=== PATIENT | male | born 1955 | race Caucasian/White ===

== ENCOUNTER → 2021-02-06 15:13 | Outpatient (BNVA) | payer MEDICARE, MEDICAID, SELFPAY | PROVIDERS: PCP Internal Medicine; Visit Provider Anesthesiology | DX: G89.4 Chronic pain syndrome (principal); S22.32XA Fracture of one rib, left side, initial encounter for closed fracture; G20 Parkinson's disease | CPT/HCPCS: Q3014 ==

== ENCOUNTER 2022-07-31 14:15 | Emergency (ER) | payer MEDICARE, MEDICAID, SELFPAY ==
--- NOTE | ~2022-07-31 | US_ITS ---
EXAMINATION: US VENOUS ULTRASOUND WITH DOPPLER LOWER EXTREMITY, BILATERAL CLINICAL INFORMATION: Bilateral leg swelling. Assess for acute DVT. COMPARISON: None TECHNIQUE: Ultrasound of the deep veins is performed from the hip to the calf with compression sonography and color and pulse Doppler assessment. Spectral analysis with color-flow imaging is performed. FINDINGS: RIGHT: There is normal venous compression and respiratory variation and augmented flow. The visualized common femoral vein, superficial femoral vein, profunda femoral vein, popliteal vein, and the trifurcation region shows no evidence of deep venous thrombosis. There is limited visualization of the peroneal vein. No popliteal fossa cyst. LEFT: There is normal venous compression and respiratory variation and augmented flow. The visualized common femoral vein, superficial femoral vein, profunda femoral vein, popliteal vein, and the trifurcation region shows no evidence of deep venous thrombosis. There is limited visualization of the peroneal vein. No popliteal fossa cyst. US/US venous duplex LE IMPRESSION: -No DVT demonstrated in the bilateral lower extremity. -If the patient's symptoms persist, followup ultrasound in 5-7 days may be considered to exclude proximal propagation from a non-visualized calf vein.
--- NOTE | ~2022-07-31 | XR_ITS ---
EXAMINATION: XR CHEST CLINICAL INFORMATION: Cough, shortness of breath COMPARISON: Chest in left ribs 09/21/2018 TECHNIQUE: 2 views of the chest were obtained. FINDINGS: Heart size normal. Vascularity normal. No hyperinflation. No airspace consolidation or groundglass opacity or effusion. Bilateral pacemaker generators in visualized wires show no change. XR/XR chest 2V IMPRESSION: No acute intrathoracic disease.
[2022-07-31 14:20] VITALS: BP 118/64; PULSE 82; RESP 19; TEMP 36.6; O2SAT 96; BMI 33.5
--- NOTE | 2022-07-31 14:20 | ED_ITS ---
HPI - SOB/Dyspnea General Chief Complaint: Upper Respiratory Symptoms <ASIF Hylton - Last Filed: 07/31/22 14:36> Stated Complaint: SOB, coughing <ASIF Hylton - Last Filed: 07/31/22 14:36> Time Seen by Provider: 07/31/22 16:40 <ASIF Hylton - Last Filed: 07/31/22 14:36> Source: patient <Igor Strickland MD - Last Filed: 07/31/22 17:05> Limitations: no limitations <Igor Strickland MD - Last Filed: 07/31/22 17:05> History of Present Illness HPI Narrative: This is a 67-year-old male with history of Parkinson's disease who developed a mild cough last night and today had a worse cough, fever, shortness of breath. Patient has had mild nasal congestion. He has had nausea but no vomiting. The nausea was worse earlier today. Patient has intermittent constipation for which he takes MiraLax, has not had a bowel movement today. He does feel little short of breath. He denies any lower extremity swelling. <Igor Strickland MD - Last Filed: 07/31/22 17:05> Related Data Home Medications: Home Medications Medication Instructions Recorded Confirmed carbidopa 25 mg-levodopa 100 mg tab PO 02/06/21 tablet dextromethorphan 20 mg-quinidine 1 cap PO BID 02/06/21 10 mg capsule (Nuedexta) diazepam 5 mg tablet 5 mg PO TID PRN 02/06/21 hydrocortisone 2.5 % topical cream appl topical 02/06/21 omeprazole 40 mg capsule,delayed 40 mg PO DAILY 02/06/21 release tamsulosin 0.4 mg capsule 0.4 mg PO DAILY 02/06/21 temazepam 15 mg capsule 15 mg PO BEDTIME PRN 02/06/21 Previous Rx's Medication Instructions Recorded nirmatrelvir 300 mg (150 mg See Rx Instructions PO .COMPLEX 07/31/22 x2)-ritonavir 100 mg tablet,dose #30 ea pack(EUA) (Paxlovid) ondansetron 4 mg disintegrating 4 mg PO Q6H PRN nausea and 07/31/22 tablet vomiting #10 tabs <ASIF Hylton - Last Filed: 07/31/22 14:36> Allergies/Adverse Reactions: Allergies Allergy/AdvReac Type Severity Reaction Status Date / Time insect venom Allergy unknown Verified 02/06/21 15:35 <ASIF Hylton - Last Filed: 07/31/22 14:36> Review of Systems Review of Systems: As per HPI <Igor Strickland MD - Last Filed: 07/31/22 17:05> [facility] Past Medical History Medical History: Medical History (Updated 07/31/22 @ 16:51 by Igor Strickland MD) Abnormal iliac reflex Atrial flutter Benign prostatic hyperplasia Chronic constipation Chronic pain syndrome Depression Diverticulitis Dysphagia Esophageal reflux Hemorrhoids, internal Hiatal hernia Hyperlipidemia Hypertension Insomnia Left rib fracture Obstructive sleep apnea Parkinson disease Parkinson disease, symptomatic Vitamin B12 deficiency <ASFI Hylton - Last Filed: 07/31/22 14:36> Social History Social History: Social History Advance Directives: No <ASIF Hylton - Last Filed: 07/31/22 14:36> Physical Exam Vital Signs: Vital Signs: Last Vital Signs Temp 98 F 07/31/22 14:20 Pulse 82 07/31/22 14:20 Resp 07/31/22 14:20 BP 118/64 07/31/22 14:20 Pulse Ox 96 07/31/22 14:20 O2 Del Method 07/31/22 14:20 BMI result Body Mass Index 33.5 <ASIF Hylton - Last Filed: 07/31/22 14:36> Vital Signs: Last Vital Signs Temp 98 F 07/31/22 14:20 Pulse 82 07/31/22 14:20 Resp 07/31/22 14:20 BP 118/64 07/31/22 14:20 Pulse Ox 96 07/31/22 14:20 O2 Del Method 07/31/22 14:20 BMI result Body Mass Index 33.5 <Igor Strickland MD - Last Filed: 07/31/22 17:05> Const: Other: PERRLA Conj [place] Mucous membranes moist Throat clear Neck supple Lungs CTA Heart RRR no murmurs rubs or gallops Abd soft, non tender, non distended Extremities no pitting edema Neuro alert and oriented x 3, non focal <Igor Strickland MD - Last Filed: 07/31/22 17:05> Course Course Course Narrative: RME-14:20PM - 67yoM with past medical history of atrial fibrillation not on any anticoagulation, Parkinson's disease who is presenting to the ED with at bedside with URI complaints since last night which include generalized fatigue/malaise, chills, nasal congestion rhinorrhea, sore throat, cough with shortness of breath, dyspnea on exertion, orthopnea, leg swelling. Plan: Labs, EKG, CXR ordered at this time. Patient will be sent to be seen in the ER for further evaluation treatment. <ASIF Hylton - Last Filed: 07/31/22 14:36> Medical Decision Making Medical Decision Making [facility] Narrative: patient with URI symptoms, myalgias, mild shortness of breath which began primarily today. Patient does have COVID. Chest x-ray negative. Pulse oximetry is normal. Lungs clear on exam. Laboratory workup otherwise unremarkable. Patient will be started on Paxlovid. Patient is mildly obese, no history of prior lung disease or diabetes <Igor Strickland MD - Last Filed: 07/31/22 17:05> Differential Diagnosis Differential Diagnoses: The differential diagnosis associated with the presentation includes <Igor Strickland MD - Last Filed: 07/31/22 17:05> Admission/Observation Consideration of admission/observation: Escalation of care including admission/observation considered <Igor Strickland MD - Last Filed: 07/31/22 17:05> Lab Data [facility] Lab Attestation statement: I reviewed the patient's lab results. <Igor Strickland MD - Last Filed: 07/31/22 17:05> Result Diagrams: 07/31/22 14:32 07/31/22 14:32 <ASIF Hylton - Last Filed: 07/31/22 14:36> Labs: Lab Results 07/31/22 07/31/22 07/31/22 Range/Units 14:29 14:32 14:32 WBC 4.6 L (4.8-10.8) X10*3/uL RBC 4.40 L (4.60-5.80) X10*6/uL Hgb 13.1 L (14.0-18.0) g/dl Hct 38.1 L (42.0-52.0) % MCV 86.6 (80.0-98.0) fL MCH 29.8 (27.0-33.0) pg MCHC 34.4 (31.0-36.0) g/dl RDW 12.8 (11.0-16.0) % Plt Count 174 (160-400) X10*3/uL MPV 8.6 L (9.4-12.4) fL Immature Gran % (Auto) 0.4 (0.0-0.4) % Neut % (Auto) 85.6 H (45-73) % Lymph % (Auto) 5.4 L (20-40) % Mclean % (Auto) 6.0 (2-11) % Eos % (Auto) 2.2 (0-4) % Baso % (Auto) 0.4 (0-2) % Lymph # (Auto) 0.3 L (1.2-4.9) X10*3/uL Mclean # (Auto) 0.3 (0.1-1.2) X10*3/uL Eos # (Auto) 0.1 (0.0-0.4) X10*3/uL Baso # (Auto) 0.0 (0.0-0.2) X10*3/uL Abs Immat Gran (auto) 0.02 (0.00-0.03) X10*3/uL Absolute Neuts (auto) 4.0 (2.0-8.3) x10*3/uL Absolute Nucleated RBC 0.000 (0.0-0.012) X10*3/uL Nucleated RBC % (auto) 0.0 (0.0-0.2) /100WBC PT 11.9 (10.0-13.1) SEC INR 1.0 (0.9-1.1) Sodium (135-145) mmol/L Potassium (3.3-5.1) mmol/L Chloride (96-108) mmol/L Carbon Dioxide (22-29) mmol/L Anion Gap (12-20) BUN (9-16) mg/dL Creatinine (0.5-1.4) mg/dL Estim Creat Clear Calc Estimated GFR Random Glucose (60-115) mg/dL Calcium (8.4-10.2) mg/dL Magnesium (1.6-2.6) mg/dL Total Bilirubin (0.0-1.0) mg/dL AST (5-37) U/L ALT (0-40) U/L Alkaline Phosphatase (39-117) U/L Troponin I High Sens (<3.5-35.0) ng/L B-Natriuretic Peptide (<100) pg/mL Total Protein (6.5-8.0) g/dL Albumin (3.5-5.0) g/dL Influenza Type A (PCR) NEGATIVE (Negative) Influenza Type B (PCR) NEGATIVE (Negative) RSV RNA Qual (PCR) NEGATIVE (Negative) SARS-CoV-2 RNA (RT-PCR) POSITIVE A (Negative) 07/31/22 07/31/22 07/31/22 Range/Units 14:32 14:32 14:32 WBC (4.8-10.8) X10*3/uL RBC (4.60-5.80) X10*6/uL Hgb (14.0-18.0) g/dl Hct (42.0-52.0) % MCV (80.0-98.0) fL MCH (27.0-33.0) pg MCHC (31.0-36.0) g/dl RDW (11.0-16.0) % Plt Count (160-400) X10*3/uL MPV (9.4-12.4) fL Immature Gran % (Auto) (0.0-0.4) % Neut % (Auto) (45-73) % Lymph % (Auto) (20-40) % Mclean % (Auto) (2-11) % Eos % (Auto) (0-4) % Baso % (Auto) (0-2) % Lymph # (Auto) (1.2-4.9) X10*3/uL Mclean # (Auto) (0.1-1.2) X10*3/uL Eos # (Auto) (0.0-0.4) X10*3/uL Baso # (Auto) (0.0-0.2) X10*3/uL Abs Immat Gran (auto) (0.00-0.03) X10*3/uL Absolute Neuts (auto) (2.0-8.3) x10*3/uL Absolute Nucleated RBC (0.0-0.012) X10*3/uL Nucleated RBC % (auto) (0.0-0.2) /100WBC PT (10.0-13.1) SEC INR (0.9-1.1) Sodium 136 (135-145) mmol/L Potassium 4.3 (3.3-5.1) mmol/L Chloride 103 (96-108) mmol/L Carbon Dioxide 26 (22-29) mmol/L Anion Gap 11 L (12-20) BUN 14 (9-16) mg/dL Creatinine 1.17 (0.5-1.4) mg/dL Estim Creat Clear Calc 74.7 Estimated GFR > 60 Random Glucose 89 (60-115) mg/dL Calcium 8.6 (8.4-10.2) mg/dL Magnesium 1.8 (1.6-2.6) mg/dL Total Bilirubin 0.7 (0.0-1.0) mg/dL AST 15 (5-37) U/L ALT 8 (0-40) U/L Alkaline Phosphatase 102 (39-117) U/L Troponin I High Sens < 3.5 (<3.5-35.0) ng/L B-Natriuretic Peptide 110 H (<100) pg/mL Total Protein 6.8 (6.5-8.0) g/dL Albumin 3.8 (3.5-5.0) g/dL Influenza Type A (PCR) (Negative) Influenza Type B (PCR) (Negative) RSV RNA Qual (PCR) (Negative) SARS-CoV-2 RNA (RT-PCR) (Negative) <ASIF Hylton - Last Filed: 07/31/22 14:36> Lab Results 07/31/22 07/31/22 07/31/22 Range/Units 14:29 14:32 14:32 WBC 4.6 L (4.8-10.8) X10*3/uL RBC 4.40 L (4.60-5.80) X10*6/uL Hgb 13.1 L (14.0-18.0) g/dl Hct 38.1 L (42.0-52.0) % MCV 86.6 (80.0-98.0) fL MCH 29.8 (27.0-33.0) pg MCHC 34.4 (31.0-36.0) g/dl RDW 12.8 (11.0-16.0) % Plt Count 174 (160-400) X10*3/uL MPV 8.6 L (9.4-12.4) fL Immature Gran % (Auto) 0.4 (0.0-0.4) % Neut % (Auto) 85.6 H (45-73) % Lymph % (Auto) 5.4 L (20-40) % Mclean % (Auto) 6.0 (2-11) % Eos % (Auto) 2.2 (0-4) % Baso % (Auto) 0.4 (0-2) % Lymph # (Auto) 0.3 L (1.2-4.9) X10*3/uL Mclean # (Auto) 0.3 (0.1-1.2) X10*3/uL Eos # (Auto) 0.1 (0.0-0.4) X10*3/uL Baso # (Auto) 0.0 (0.0-0.2) X10*3/uL Abs Immat Gran (auto) 0.02 (0.00-0.03) X10*3/uL Absolute Neuts (auto) 4.0 (2.0-8.3) x10*3/uL Absolute Nucleated RBC 0.000 (0.0-0.012) X10*3/uL Nucleated RBC % (auto) 0.0 (0.0-0.2) /100WBC PT 11.9 (10.0-13.1) SEC INR 1.0 (0.9-1.1) Sodium (135-145) mmol/L Potassium (3.3-5.1) mmol/L Chloride (96-108) mmol/L Carbon Dioxide (22-29) mmol/L Anion Gap (12-20) BUN (9-16) mg/dL Creatinine (0.5-1.4) mg/dL Estim Creat Clear Calc Estimated GFR Random Glucose (60-115) mg/dL Calcium (8.4-10.2) mg/dL Magnesium (1.6-2.6) mg/dL Total Bilirubin (0.0-1.0) mg/dL AST (5-37) U/L ALT (0-40) U/L Alkaline Phosphatase (39-117) U/L Troponin I High Sens (<3.5-35.0) ng/L B-Natriuretic Peptide (<100) pg/mL Total Protein (6.5-8.0) g/dL Albumin (3.5-5.0) g/dL Influenza Type A (PCR) NEGATIVE (Negative) Influenza Type B (PCR) NEGATIVE (Negative) RSV RNA Qual (PCR) NEGATIVE (Negative) SARS-CoV-2 RNA (RT-PCR) POSITIVE A (Negative) 07/31/22 07/31/22 07/31/22 Range/Units 14:32 14:32 14:32 WBC (4.8-10.8) X10*3/uL RBC (4.60-5.80) X10*6/uL Hgb (14.0-18.0) g/dl Hct (42.0-52.0) % MCV (80.0-98.0) fL MCH (27.0-33.0) pg MCHC (31.0-36.0) g/dl RDW (11.0-16.0) % Plt Count (160-400) X10*3/uL MPV (9.4-12.4) fL Immature Gran % (Auto) (0.0-0.4) % Neut % (Auto) (45-73) % Lymph % (Auto) (20-40) % Mclean % (Auto) (2-11) % Eos % (Auto) (0-4) % Baso % (Auto) (0-2) % Lymph # (Auto) (1.2-4.9) X10*3/uL Mclean # (Auto) (0.1-1.2) X10*3/uL Eos # (Auto) (0.0-0.4) X10*3/uL Baso # (Auto) (0.0-0.2) X10*3/uL Abs Immat Gran (auto) (0.00-0.03) X10*3/uL Absolute Neuts (auto) (2.0-8.3) x10*3/uL Absolute Nucleated RBC (0.0-0.012) X10*3/uL Nucleated RBC % (auto) (0.0-0.2) /100WBC PT (10.0-13.1) SEC INR (0.9-1.1) Sodium 136 (135-145) mmol/L Potassium 4.3 (3.3-5.1) mmol/L Chloride 103 (96-108) mmol/L Carbon Dioxide 26 (22-29) mmol/L Anion Gap 11 L (12-20) BUN 14 (9-16) mg/dL Creatinine 1.17 (0.5-1.4) mg/dL Estim Creat Clear Calc 74.7 Estimated GFR > 60 Random Glucose 89 (60-115) mg/dL Calcium 8.6 (8.4-10.2) mg/dL Magnesium 1.8 (1.6-2.6) mg/dL Total Bilirubin 0.7 (0.0-1.0) mg/dL AST 15 (5-37) U/L ALT 8 (0-40) U/L Alkaline Phosphatase 102 (39-117) U/L Troponin I High Sens < 3.5 (<3.5-35.0) ng/L B-Natriuretic Peptide 110 H (<100) pg/mL Total Protein 6.8 (6.5-8.0) g/dL Albumin 3.8 (3.5-5.0) g/dL Influenza Type A (PCR) (Negative) Influenza Type B (PCR) (Negative) RSV RNA Qual (PCR) (Negative) SARS-CoV-2 RNA (RT-PCR) (Negative) <Igor Strickland MD - Last Filed: 07/31/22 17:05> Radiology Impression Discussion of test interpretation with radiology: I have reviewed the radiologist's reading. <Igor Strickland MD - Last Filed: 07/31/22 17:05> Radiologist Impression: chest x-ray: No acute disease duplex ultrasound lower extremity: No DVT <Igor Strickland MD - Last Filed: 07/31/22 17:05> Prescription Management I considered prescription management with: Antiviral <Igor Strickland MD - Last Filed: 07/31/22 17:05> Chronic Conditions Patient?s care impacted by: Other ( Parkinson's disease) <Igor Strickland MD - Last Filed: 07/31/22 17:05> Discharge Plan Discharge Clinical Impression: COVID-19 <ASIF Hylton - Last Filed: 07/31/22 14:36> Patient Disposition: Home, Self-Care <ASIF Hylton - Last Filed: 07/31/22 14:36> Instructions: COVID-19 (Coronavirus Disease 2019) (ED) <ASIF Hylton - Last Filed: 07/31/22 14:36> Additional Instructions: Drink plenty of fluids. Use acetaminophen or ibuprofen for pain or fever. Use the Paxil pedis prescribed for COVID. Use MiraLax as per your usual routine as needed for constipation. Use ondansetron as prescribed as needed for nausea. Return for any new or worsened symptoms such as increased shortness of breath, dizziness, weakness. <ASIF Hylton - Last Filed: 07/31/22 14:36> Prescriptions: New Paxlovid (EUA) 300 mg (150 mg x 2)-100 mg tablets,dose pack See Rx Instructions .ROUTE .COMPLEX Qty: 30 0RF Rx Instructions: take TWO 150 mg tablets of nirmatrelvir with ONE 100 mg tablet of ritonavir twice daily for 5 days ondansetron 4 mg tablet,disintegrating 4 mg PO Q6H PRN (Reason: nausea and vomiting) Qty: 10 0RF <ASIF Hylton - Last Filed: 07/31/22 14:36>
--- NOTE | 2022-07-31 14:26 | MHC.EDTECH ---
pt refusal of EKG due to brain stimulator for Parkinson's causes too much artifact . ABDIFATAH ramirez and RN.
[2022-07-31 14:37] LABS: MANUAL DIFF FLAG NO
[2022-07-31 14:39] LABS: Basophils Percent Auto 0.4 % (0-2); Eosinophils Absolute Auto 0.1 X10*3/uL (0.0-0.4); Eosinophils Percent Auto 2.2 % (0-4); Hematocrit 38.1 % (42.0-52.0); Hemoglobin 13.1 g/dl (14.0-18.0); Imm Gran Abs Auto 0.02 X10*3/uL (0.00-0.03); Imm Gran Pct Auto 0.4 % (0.0-0.4); Lymphocytes Absolute Auto 0.3 X10*3/uL (1.2-4.9); Lymphocytes Percent Auto 5.4 % (20-40); Mean Corpuscular HGB Conc 34.4 g/dl (31.0-36.0); Mean Corpuscular Hemoglobin 29.8 pg (27.0-33.0); Mean Corpuscular Volume 86.6 fL (80.0-98.0); Mean Platelet Volume 8.6 fL (9.4-12.4); Monocytes Absolute Auto 0.3 X10*3/uL (0.1-1.2); Neutrophils Percent Auto 85.6 % (45-73); Platelet Count 174 X10*3/uL (160-400); Red Cell Distribution Width 12.8 % (11.0-16.0); White Blood Count 4.6 X10*3/uL (4.8-10.8)
[2022-07-31 14:47] LABS: Prothrombin Time 11.9 SEC (10.0-13.1)
[2022-07-31 14:53] LABS: Alanine Aminotransferase 8 U/L (0-40); Albumin Level 3.8 g/dL (3.5-5.0); Alkaline Phosphatase 102 U/L (39-117); Anion Gap 11 (12-20); Aspartate Amino Transferase 15 U/L (5-37); Bilirubin Total 0.7 mg/dL (0.0-1.0); Blood Urea Nitrogen 14 mg/dL (9-16); Calcium 8.6 mg/dL (8.4-10.2); Carbon Dioxide 26 mmol/L (22-29); Chloride 103 mmol/L (96-108); Creatinine Clr Calc Pharmacy 74.7; Estimated Glomerular Filt Rate > 60; Glucose Random 89 mg/dL (60-115); Magnesium 1.8 mg/dL (1.6-2.6); Potassium 4.3 mmol/L (3.3-5.1); Sodium 136 mmol/L (135-145); Total Protein 6.8 g/dL (6.5-8.0)
[2022-07-31 14:59] LABS: B Type Natriuretic Peptide 110 pg/mL (<100)
[2022-07-31 15:01] LABS: Troponin-I High Sensitivity < 3.5 ng/L (<3.5-35.0)
[2022-07-31 15:25] LABS: Influenza A PCR NEGATIVE (Negative); Influenza B PCR NEGATIVE (Negative); Resp Syncy Virus RNA Qual PCR NEGATIVE (Negative); SARS COV2 PCR INHOUSE POSITIVE (Negative)
== END 2022-07-31 17:28 | disposition home or self-care (01) ==
PROVIDERS: Physician Assistant Medical; Emergency Provider Emergency Medicine; PCP Internal Medicine
DX: U07.1 COVID-19 (principal); R06.02 Shortness of breath; R05.9 Cough, unspecified; R60.0 Localized edema; Z79.899 Other long term (current) drug therapy
CPT/HCPCS: 0241U; 36415; 71046; 80053; 83735; 83880; 84484; 85025; 85610; 93970; 99282; 99284

== ENCOUNTER 2022-10-19 09:54 | Emergency (ER) | payer MEDICARE, MEDICAID, SELFPAY ==
--- NOTE | ~2022-10-19 | CT_ITS ---
EXAMINATION: CT CERVICAL SPINE WITHOUT CONTRAST CLINICAL INFORMATION: History of fall with neck pain. COMPARISON: None available. TECHNIQUE: Noncontrast multidetector CT imaging examination of cervical spine. Axial images and multiplanar reformatted images are reviewed. This CT examination was performed using dose optimization techniques as appropriate, variously including the following: *Automated exposure control *Adjustment of mA and/or kV according to patient size (this includes techniques or standardized protocols for targeted exams where dose is matched to indication/reason for exam; i.e. extremities or head) *Use of iterative reconstruction technique DLP: 572.19 mGy-cm for the cervical spine CT (1293 mGy-cm total, if including head CT) FINDINGS: The skull base is intact. No evidence of calvarial fracture. Left mastoid effusion is present. There is mild dextroscoliosis of the degenerated cervical spine. The dens and atlantodental articulation are intact. No acute fractures within the anterior or posterior elements. No prevertebral edema or paraspinal hematoma. There is multilevel facet osteoarthritis and discovertebral degenerative change. The loss of disc height is worst (moderate in degree) at C3-C4 and there is associated 0.2 cm of retrolisthesis of C3 on C4. A posterior disc osteophyte complex is present at C3-C4 and there is narrowing of the central spinal canal to 0.9 cm AP diameter. Otherwise, no significant stenosis of the cervical spinal canal. There is severe left-sided neural foraminal stenosis at C3-C4. [id number] bilateral neural foraminal stenosis is present at C4-C5. The lung apices are partially included in the [id number]. No acute findings at the visualized apices. No pneumothorax. Thyroid gland is unremarkable. CT/CT cervical spine wo IV con IMPRESSION: * No acute fracture or traumatic subluxation of the degenerated cervical spine. * The degenerative changes in the cervical spine are worst at C3-C4. At C3-C4, the findings include moderate discovertebral degenerative change, uncovertebral joint hypertrophy, facet arthropathy, mild retrolisthesis of C3 on C4, spinal canal stenosis and severe left-sided neural foraminal stenosis.
--- NOTE | ~2022-10-19 | CT_ITS ---
CT head/brain wo IV con CLINICAL INFORMATION: Reason for Exam fall and head injury COMPARISON: No prior CT scan available for comparison. TECHNIQUE: Department standard protocol. This CT examination was performed using dose optimization techniques as appropriate, variously including the following: *Automated exposure control *Adjustment of mA and/or kV according to patient size (this includes techniques or standardized protocols for targeted exams where dose is matched to indication/reason for exam; i.e. extremities or head) *Use of iterative reconstruction technique DLP: 721 mGy-cm FINDINGS: CEREBRAL HEMISPHERES: There is no evidence of intra-axial or extra-axial mass, hemorrhage or acute infarct. BRAIN PARENCHYMA: Normal zheng-white matter differentiation. SUBDURAL SPACE: No bleed. BASAL GANGLIA AND PINEAL GLAND: Unremarkable VENTRICLES: There are 2 parallel 8 cm long metallic radiodense linear catheters or stent-2 subcutaneous stimulator embedded in the chest wall, these wires passing through the anterior parietal lobe, lateral ventricles and through the internal capsule, the tips are at the level of the brainstem. There are causing beam hardening artifacts. CEREBELLUM AND BRAINSTEM: No space-occupying mass, hemorrhage or acute infarct. CEREBELLOPONTINE ANGLES: No lesion found. ORBITS: No intraorbital mass. VESSELS: Unremarkable SKULL BASE: Unremarkable INCLUDED SINUSES AT SKULL BASE: Clear SKULL AND SKIN: No fracture or bone lesion found. CT/CT head/brain wo IV con IMPRESSION: * No CT evidence of intracranial space-occupying mass, bleed or infarct. * There are 2 parallel 8 cm long metallic radiodense linear catheters or stents, each is attached to stimulator wires embedded in the chest wall, these wires passing through the anterior parietal lobe, lateral ventricles and through the internal capsule, the tips are at the level of the brainstem. These metallic wires causing beam hardening artifacts.
--- NOTE | ~2022-10-19 | XR_ITS ---
EXAMINATION: XR HIP, LEFT CLINICAL INFORMATION: History of fall with hip pain. COMPARISON: None available. TECHNIQUE: Left hip, 2 views AP view of pelvis FINDINGS: Pelvic bones are intact. Alignment is normal at the hips, pubic symphysis and sacroiliac joints. No acute fractures are seen. The articular cartilage space of each hip is maintained. The two views of the left hip show the femoral head to be well-positioned within the intact acetabulum. There is swelling of subcutaneous tissue lateral to the hip. Multiple phleboliths are present within the pelvis. XR/XR hip LT w PEL1V IMPRESSION: * No acute osseous injury. No fracture or malalignment at the left hip. * There is soft tissue swelling of subcutaneous tissues lateral to the left hip. Correlate clinically for presence of any significant pain/bruising in this area.
[2022-10-19 10:18] VITALS: BP 94/62; PULSE 72; RESP 20; TEMP 36.6; O2SAT 96; BMI 33.0
[2022-10-19 10:41] VITALS: BP 129/65; PULSE 64; RESP 20; TEMP 36.5; O2SAT 98
[2022-10-19] MEDS: HYDROmorphone HCl 2 MG/ML VIAL IM (10:49)
--- NOTE | 2022-10-19 10:56 | ED.FALL ---
HPI - Fall General Chief Complaint: Fall Stated Complaint: Fall/L hip pain/Head inj Time Seen by Provider: 10/19/22 10:17 Source: patient Mode of arrival: ambulatory Limitations: no limitations History of Present Illness HPI Narrative: 67-year-old male history of Parkinson's disease came in for evaluation after had a mechanical fall last night. Patient was going down stairs his leg got caught in a shoe and he lost balance patient try to catch the rail but missed Ed fell about 10 steps of stairs landing on his left hip, patient also hit his head the neck. Complaining of head/neck/left hip pain. No LOC, no weakness, no numbness. Related Data Home Medications Medication Instructions Recorded Confirmed carbidopa 25 mg-levodopa 100 mg tab PO 02/06/21 tablet dextromethorphan 20 mg-quinidine 1 cap PO BID 02/06/21 10 mg capsule (Nuedexta) diazepam 5 mg tablet 5 mg PO TID PRN 02/06/21 hydrocortisone 2.5 % topical cream appl topical 02/06/21 omeprazole 40 mg capsule,delayed 40 mg PO DAILY 02/06/21 release tamsulosin 0.4 mg capsule 0.4 mg PO DAILY 02/06/21 temazepam 15 mg capsule 15 mg PO BEDTIME PRN 02/06/21 Previous Rx's Medication Instructions Recorded nirmatrelvir 300 mg (150 mg See Rx Instructions PO .COMPLEX 07/31/22 x2)-ritonavir 100 mg tablet,dose #30 ea pack(EUA) (Paxlovid) ondansetron 4 mg disintegrating 4 mg PO Q6H PRN nausea and 07/31/22 tablet vomiting #10 tabs Allergies Allergy/AdvReac Type Severity Reaction Status Date / Time insect venom Allergy unknown Verified 02/06/21 15:35 tramadol Allergy Unknown Verified 10/19/22 10:18 Review of Systems Review of Systems: All other systems are reviewed and are negative Constitutional: Reports as per HPI and Reports no additional constitutional complaints Eyes: Reports as per HPI and Reports no additional eye complaints Reports system reviewed and no additional complaints, except as documented Cardiovascular: Reports as per HPI and Reports no additional cardiovascular complaints Respiratory: Reports as per HPI and Reports no additional respiratory complaints Gastrointestinal: Reports as per HPI and Reports no additional gastrointestinal complaints Genitourinary: Reports no additional female genitourinary complaints Musculoskeletal: Reports no additional musculoskeletal complaints Skin/Breast: Reports system reviewed and no additional complaints, except as docu Psychiatric: Reports no additional psychiatric complaints Endocrine: Reports no additional endocrine complaints Hematologic/Lymphatic: Reports no additional hematologic/lymphatic complaints Allergic/Immunologic: Reports no additional allergic/immunologic complaints Reports system reviewed and no additional complaints, except as documented and Reports Abnormal speech present [facility] Past Medical History Medical History Abnormal iliac reflex Atrial flutter Benign prostatic hyperplasia Chronic constipation Chronic pain syndrome Depression Diverticulitis Dysphagia Esophageal reflux Hemorrhoids, internal Hiatal hernia Hyperlipidemia Hypertension Insomnia Left rib fracture Obstructive sleep apnea Parkinson disease Parkinson disease, symptomatic Vitamin B12 deficiency Social History Social History Alcohol intake: never Smoked in Last 30 Days: No Use of substances other than those prescribed or required for medical reasons: No Advance Directives: No Advance Directives Information Provided: Yes Physical Exam Vital Signs: Vital Signs: Last Vital Signs Temp 97.7 F 10/19/22 10:41 Pulse 65 10/19/22 11:36 Resp 16 10/19/22 11:36 BP 116/68 10/19/22 11:36 Pulse Ox 96 10/19/22 11:36 O2 Del Method Room Air 10/19/22 11:36 BMI result Body Mass Index 33.0 Vital signs have been reviewed as appeared to be correct. Blood pressure normal. Heart rate normal. Respiration rate normal. Temperature normal. Oxygen saturation normal. Appearance: Alert. Oriented X3. No acute distress. Head: Normal external exam. Normocephalic. Atraumatic. No Gipson signs noted. No raccoon eyes noted Eyes: PERRLA. EOMI. Conjunctiva and sclera normal. Eyelids normal. ENT: TM's Normal. Pharynx normal. Uvula midline. Moist mucous membranes. No trismus noted. No drooling noted. No muffled voice noted. Neck: Normal inspection. Neck supple. FROM. No adenopathy. Thyroid Normal. No meningeal signs. No neck mass noted. CVS: Normal heart rate and rhythm. Heart sound normal. No murmurs noted. Pulses normal throughout. Respiratory: No respiratory distress. Painless inspiration. Breath sounds normal. No wheezes/rales/rhonchi noted. Chest nontender. No accessory muscle usage noted or decreased air movement noted. Abdomen: Soft and nontender. Bowel sounds normal in all 4 quadrants. No distention noted. No organomegaly noted. No visible injury noted. Back: No CVA tenderness. Full range of motion noted. Skin: Skin warm and dry. Normal skin color. Normal skin turgor. No rashes/lesions/lacerations noted. Extremities: Able to ambulate, ecchymosis to the left buttock with localized tenderness but no deformity parent Neuro: Oriented X 3. Cranial nerve exam: II-XII are grossly intact No motor deficit. No sensory deficit. Reflexes normal. Course Course Course Narrative: 67-year-old male came in for evaluation of mechanical fall hurting his left have patient with history of Parkinson's disease. X-ray of the left hip showing no acute pathology or fracture, head/C-spine CT no acute injuries. Patient use oxycodone at home for chronic pain, instructed to rest, heating pad, use oxycodone at home for chronic pain. Medications Administered Discontinued Medications Generic Name Dose Route Start Last Admin Trade Name Freq PRN Reason Stop Dose Admin Hydromorphone HCl 2 mg 10/19/22 10:38 10/19/22 10:49 Hydromorphone Hcl 2 Mg/Ml Vial IM 10/19/22 10:39 2 mg ONCE ONE Administration Protocol Medical Decision Making Differential Diagnosis Differential Diagnoses: The differential diagnosis associated with the presentation includes (Mechanical fall, left hip fracture, pelvic fracture, intracranial bleed, C-spine injury.) Admission/Observation Consideration of admission/observation: Escalation of care including admission/observation considered Independent Interpretation I performed an independent interpretation of an: CT Scan (head and c-spine CT: No acute intracranial pathology, no cervical spine fracture or subluxation) Radiology Impression Discussion of test interpretation with radiology: I have reviewed the radiologist's reading. Chronic Conditions Patient?s care impacted by: Other (Parkinson's disease) Discharge Plan Discharge Clinical Impression: Contusion of hip, left Patient Disposition: Home, Self-Care Instructions: Hip Contusion (ED) Prescriptions: No Action Paxlovid (EUA) 300 mg (150 mg x 2)-100 mg tablets,dose pack See Rx Instructions .ROUTE .COMPLEX Qty: 30 0RF Rx Instructions: take TWO 150 mg tablets of nirmatrelvir with ONE 100 mg tablet of ritonavir twice daily for 5 days ondansetron 4 mg tablet,disintegrating 4 mg PO Q6H PRN (Reason: nausea and vomiting) Qty: 10 0RF Referrals: Ashley Ramirez MD [Primary Care Provider] -
--- NOTE | 2022-10-19 11:00 | PC.NURSE ---
pt Alert, oriented. presents to ED after fall down stairs last night. Reporting 10/10 left hip pain. medicated for pain per sep. Pt baseline uses a walker and has a slow gait.
[2022-10-19 11:36] VITALS: BP 116/68; PULSE 65; RESP 16; O2SAT 96
--- NOTE | 2022-10-19 11:39 | PC.NURSE ---
pt back from CT scan. pain in hip has lessened to 6/. call day within reach
== END 2022-10-19 14:02 | disposition home or self-care (01) ==
PROVIDERS: Emergency Provider Emergency Medicine; PCP Internal Medicine
DX: S70.02XA Contusion of left hip, initial encounter (principal); M25.552 Pain in left hip; R51.9 Headache, unspecified; M54.2 Cervicalgia; W10.9XXA Fall (on) (from) unspecified stairs and steps, initial encounter; Y93.9 Activity, unspecified; Y92.9 Unspecified place or not applicable; Y99.9 Unspecified external cause status; Z79.899 Other long term (current) drug therapy
CPT/HCPCS: 70450; 72125; 73502; 96372; 99284; J1170

== ENCOUNTER 2022-10-26 01:16 | Emergency (ER) | payer MEDICARE, MEDICAID, SELFPAY ==
--- NOTE | ~2022-10-26 | CT_ITS ---
EXAMINATION: CT CHEST WITH CONTRAST CT ABDOMEN AND PELVIS WITH CONTRAST CLINICAL INFORMATION: Additional Information: pt fell 1 week ago, hematoma then, included all of hematoma for this scan. : COMPARISON: None. TECHNIQUE: Multidetector volumetric imaging was performed through the chest, abdomen and pelvis following the administration of 85 mL of Omnipaque 350 intravenous contrast. Sagittal and coronal reformatted images were obtained on the technologist's workstation. Axial MIP volume rendering provided. This CT examination was performed using dose optimization techniques as appropriate, variously including the following: *Automated exposure control *Adjustment of mA and/or kV according to patient size (this includes techniques or standardized protocols for targeted exams where dose is matched to indication/reason for exam; i.e. extremities or head) *Use of iterative reconstruction technique DLP: 1264 mGy-cm. FINDINGS: CHEST: Lungs: The central airways are patent. No consolidation. Mild dependent atelectasis bilaterally. No pleural effusion or pneumothorax. There are no pulmonary parenchymal nodules. Mediastinum: The heart is of normal size. There is no pericardial effusion. Central vascular structures are unremarkable. No hilar or mediastinal lymphadenopathy. Coronary Artery Calcification: None visualized on this study. Chest Wall/Axilla: No lymphadenopathy. No chest wall mass. Bilateral chest wall generators. ABDOMEN/PELVIS: Liver, Gallbladder, Biliary Tree: The liver is normal in size, shape, and attenuation. No focal hepatic lesion or biliary ductal dilatation is present. The gallbladder is unremarkable with no evidence of radiopaque gallstones, gallbladder wall thickening, or pericholecystic inflammatory changes. Pancreas: Unremarkable. Spleen: Unremarkable. Adrenal Glands: Unremarkable. Kidneys and Ureters: The kidneys are normal in size, shape, and attenuation. No hydronephrosis, hydroureter or calculi seen. Mild symmetric perinephric stranding. Simple cyst at the lower pole of the right kidney. There is an exophytic left upper pole renal lesion which measures higher than simple fluid attenuation. This measures 2.5 cm. Bladder: Unremarkable. Gastrointestinal Tract: The stomach and small bowel appear unremarkable. No dilated loops of bowel or evidence of obstruction. No diverticulosis. No colonic wall thickening or adjacent inflammatory changes. No free air or free fluid. The appendix is unremarkable. Abdominal Wall: Fat-containing small bilateral inguinal hernias. There is a hematoma in the fat overlying the left hip laterally. This measures 11.6 x 4.2 x 9 cm . At this location, this is suspicious for a Guillory Akilah lesion. Lymphovascular Structures: Lymph nodes: Normal. Vascular: Unremarkable. Pelvic Viscera: The prostate and seminal vesicles are unremarkable. OSSEOUS STRUCTURES: No suspicious sclerotic or lytic bone lesions are identified. Mild degenerative changes of the spine. Intact sternum. No rib fracture identified. CT/CT abdomen pelvis w IV con IMPRESSION: 1. Prominent hematoma in the fat overlying the left hip laterally. This is suspicious for a Guillory Akilah lesion. 2. No additional acute traumatic finding of the chest, abdomen, or pelvis. 3. Exophytic left upper pole renal lesion measures higher than simple fluid attenuation. While this may represent a complicated cyst, a solid mass is not excluded. This can be further evaluated with nonemergent renal ultrasound.
[2022-10-26 01:47] VITALS: BP 111/60; PULSE 80; RESP 16; TEMP 37.1; O2SAT 98; BMI 33.0
--- NOTE | 2022-10-26 01:59 | PC.NURSE ---
Pt presents with c/o of expanding hematoma on left hip/butocks and upper thigh s/p fall down 10 stairs on Thursday 10/19. Was seen here for evaluation, no fractures found. Pt has excessively large hematoma and swelling noted to left hip area and upper thigh with pain on palpation. Pt also has swelling and some ecchymosis on left elbow. Small laceration with dried blood on bridge of nose, and small closed wound on top of head, no bleeding. No other complaints or concerns at this time.
--- NOTE | 2022-10-26 02:13 | PC.NURSE ---
Pt reports having increasing pain in left hip with prolonged sitting or lying on left side. Pt positioned on right side with padding to prevent pressure on left hip.
[2022-10-26] MEDS: Morphine Sulfate 4 MG/ML CARTRIDGE IVPUSH ×2 (02:35→04:51)
[2022-10-26 03:01] LABS: Basophils Percent Auto 0.7 % (0-2); Eosinophils Absolute Auto 0.2 X10*3/uL (0.0-0.4); Eosinophils Percent Auto 3.6 % (0-4); Hematocrit 30.6 % (42.0-52.0); Hemoglobin 10.5 g/dl (14.0-18.0); Imm Gran Abs Auto 0.04 X10*3/uL (0.00-0.03); Imm Gran Pct Auto 0.7 % (0.0-0.4); Lymphocytes Absolute Auto 1.4 X10*3/uL (1.2-4.9); Lymphocytes Percent Auto 25.7 % (20-40); MANUAL DIFF FLAG NO; Mean Corpuscular HGB Conc 34.3 g/dl (31.0-36.0); Mean Corpuscular Volume 87.4 fL (80.0-98.0); Mean Platelet Volume 8.7 fL (9.4-12.4); Monocytes Absolute Auto 0.5 X10*3/uL (0.1-1.2); Monocytes Percent Auto 8.8 % (2-11); Neutrophils Absolute Auto 3.4 x10*3/uL (2.0-8.3); Neutrophils Percent Auto 60.5 % (45-73); Platelet Count 210 X10*3/uL (160-400); Red Cell Distribution Width 13.2 % (11.0-16.0); White Blood Count 5.6 X10*3/uL (4.8-10.8)
[2022-10-26 03:08] LABS: INTERNATIONAL NORM RATIO 0.9 (0.9-1.1); Prothrombin Time 10.8 SEC (10.0-13.1)
[2022-10-26 03:11] LABS: Partial Thromboplastin Time 26.8 SEC (26.0-36.4)
[2022-10-26 03:13] LABS: COVID-19 Test Negative (Negative); IDNOW Serial# BCCEAD1C
[2022-10-26 03:31] LABS: Alanine Aminotransferase 6 U/L (0-40); Albumin Level 3.3 g/dL (3.5-5.0); Alkaline Phosphatase 101 U/L (39-117); Anion Gap 9 (12-20); Aspartate Amino Transferase 14 U/L (5-37); Bilirubin Total 0.7 mg/dL (0.0-1.0); Blood Urea Nitrogen 16 mg/dL (9-16); Calcium 8.1 mg/dL (8.4-10.2); Carbon Dioxide 25 mmol/L (22-29); Chloride 108 mmol/L (96-108); Creatinine Clr Calc Pharmacy 79.6; Estimated Glomerular Filt Rate > 60; Glucose Random 132 mg/dL (60-115); Lipase 37 U/L (8-78); Potassium 3.7 mmol/L (3.3-5.1); Sodium 138 mmol/L (135-145); Total Protein 5.8 g/dL (6.5-8.0)
[2022-10-26] MEDS: iohexoL 350 MG/ML 100 ML INFUS..BTL 85 ML IV (04:04)
--- NOTE | 2022-10-26 04:08 | ED_ITS ---
HPI - Fall General Chief Complaint: Fall Stated Complaint: fall ,left side pain still bruised Time Seen by Provider: 10/26/22 02:09 Source: patient and family () Limitations: no limitations History of Present Illness HPI Narrative: 67-year-old male who presents emergency department for evaluation increase left hip pain. The patient has a history of Parkinson's disease and states that he tripped on his shoe and fell down approximately 10 steps on 10/19/2022. The patient was seen here in the emergency department at that time and had a CT scan of his head, neck and x-rays the left hip. CT scans were negative, left hip revealed soft tissue swelling of the subcutaneous tissue of the left hip. The patient states that the swelling in his left hip was getting larger and he did have areas that were black and blue. Patient states that he was in bed, he rolled over, he felt a pop in his left hip and developed severe pain in his left hip . He states there was also increased swelling over the lateral aspect of his left hip compared to previously. Patient was able to walk, his brought him to the emergency department for evaluation. Related Data Home Medications Medication Instructions Recorded Confirmed carbidopa 25 mg-levodopa 100 mg tab PO 02/06/21 tablet dextromethorphan 20 mg-quinidine 1 cap PO BID 02/06/21 10 mg capsule (Nuedexta) diazepam 5 mg tablet 5 mg PO TID PRN 02/06/21 hydrocortisone 2.5 % topical cream appl topical 02/06/21 omeprazole 40 mg capsule,delayed 40 mg PO DAILY 02/06/21 release tamsulosin 0.4 mg capsule 0.4 mg PO DAILY 02/06/21 temazepam 15 mg capsule 15 mg PO BEDTIME PRN 02/06/21 Previous Rx's Medication Instructions Recorded nirmatrelvir 300 mg (150 mg See Rx Instructions PO .COMPLEX 07/31/22 x2)-ritonavir 100 mg tablet,dose #30 ea pack(EUA) (Paxlovid) ondansetron 4 mg disintegrating 4 mg PO Q6H PRN nausea and 07/31/22 tablet vomiting #10 tabs Allergies Allergy/AdvReac Type Severity Reaction Status Date / Time insect venom Allergy unknown Verified 02/06/21 15:35 tramadol Allergy Unknown Verified 10/19/22 10:18 Review of Systems Review of Systems: Yes all other systems are reviewed and are negative [facility] Past Medical History [facility] Narrative: Past surgical history: Patient does have brain stimulator implants for his Parkinson's disease. Social history: He lives at home with his mother. He denies tobacco, alcohol and drug use. Medical History Abnormal iliac reflex Atrial flutter Benign prostatic hyperplasia Chronic constipation Chronic pain syndrome Depression Diverticulitis Dysphagia Esophageal reflux Hemorrhoids, internal Hiatal hernia Hyperlipidemia Hypertension Insomnia Left rib fracture Obstructive sleep apnea Parkinson disease Parkinson disease, symptomatic Vitamin B12 deficiency Social History Social History Alcohol intake: never Advance Directives: No Advance Directives Information Provided: Yes Physical Exam Vital Signs: Vital Signs: Last Vital Signs Temp 97.5 F 10/26/22 05:47 Pulse 74 10/26/22 05:47 Resp 16 10/26/22 05:47 BP 117/58 L 10/26/22 05:47 Pulse Ox 95 10/26/22 05:47 O2 Del Method Room Air 10/26/22 05:47 BMI result Body Mass Index 33.0 Const: General: cooperative and no acute distress Orientation/conscious ness: oriented to person and oriented to place Limitations: no limitations HEENT: Head: Yes normal to inspection, Yes normocephalic and Yes atraumatic Ears: external ears normal General nose exam: Normal external nose present Face and sinus: Yes normal facial exam Mouth: Normal oral and palatal mucosa present Throat: Yes posterior oropharynx normal Eyes: General: appearance normal, both eyes and all related structures Pupils: Equal, round and reactive pupils present Neck: Neck: Yes normal visual inspection, Yes no lymphadenopathy, Yes trachea midline and Yes supple Chest: Chest palpation & inspection: normal inspection of the chest and normal palpation of entire chest wall Resp: Effort & Inspection: normal respiratory effort and able to speak in complete sentences Auscultation: clear to auscultation bilaterally Cardio: Rate: regular rate Rhythm: regular rhythm Heart sounds: S1 norm al heart sound present, S2 normal heart sound present and no murmurs GI: Inspection: Yes normal to inspection Palpation (GI): Soft to palpation, nontender and no guarding Auscultation: normal bowel sounds : General: Yes no CVA tenderness Back/Spine/Pelvis: Back: no CVA tenderness Skin: General skin exam: no rashes or lesions noted Neuro: General: oriented to person and oriented to place Cranial nerves: Yes CN's II-XII intact bilaterally and Yes Equal, round and reactive pupils present Cognition (Neuro): normal cognition Motor exam (neuro): 5/5 motor strength present throughout Extrem: Other: Patient has a large area of ecchymosis with soft tissue swelling over his left lateral hip which is consistent with a hematoma. This area is tender to palpation. He also has some tenderness palpation over his hip joint. His extremities neurovascular intact. Psych: Appearance: grossly normal Speech and movement: Normal speech and movement present Affect: normal affect Attitude: cooperative Thought process: Normal thought process present Thought content: Normal thought content present Medications Administered Discontinued Medications Generic Name Dose Route Start Last Admin Trade Name Freq PRN Reason Stop Dose Admin Hydromorphone HCl 0.5 mg 10/26/22 05:44 10/26/22 06:17 Hydromorphone Hcl 0.5 Mg/0.5 Ml Syringe IVPUSH 10/26/22 05:45 0.5 mg ONCE ONE Administration Protocol Iohexol 85 ml 10/26/22 04:03 10/26/22 04:04 Iohexol 350 Mg/Ml 100 Ml Infus..Btl IV 10/26/22 04:04 85 ml ONCE ONE Administration Morphine Sulfate 4 mg 10/26/22 02:32 10/26/22 02:35 Morphine Sulfate 4 Mg/Ml Cartridge IVPUSH 10/26/22 02:33 4 mg ONCE STA Administration Protocol Morphine Sulfate 4 mg 10/26/22 04:14 10/26/22 04:51 Morphine Sulfate 4 Mg/Ml Cartridge IVPUSH 10/26/22 04:15 4 mg ONCE STA Administration Protocol Medical Decision Making Medical Decision Making MDM Narrative: 67-year-old male who fell down 10 steps approximately 1 week prior, was seen in the emergency department of at time and was diagnosed with a left hip contusion with subcutaneous, soft tissue swelling noted on plain x-rays. Patient rolled over in bed this morning and felt a popping sensation is left hip with increased swelling and pain in the area of the left hip hematoma. Physical examination did reveal a large, ecchymotic, tender hematoma to his left hip. I ordered a laboratory evaluation to include CBC, CMP, PT/INR, PTT, CK, lipase, urinalysis, COVID-19. I will obtain a CT scan of his chest abdomen pelvis with the scan extending to include the left femur. Patient was ordered to get morphine 4 mg IV for his left hip pain. 0417: My independent interpretation laboratory data is as follows: CBC revealed anemia with an H&H of 10.5 and 30.6, this is a significant drop compared to an H&H of 13 and 38 from 07/31/2022. CMP revealed an elevated glucose of 132. COVID-19 was negative. PT/INR, PTT were normal. 0513: CT scan of the chest, abdomen, pelvis with IV contrast revealed a prominent hematoma in the fat overlying the left hip laterally which was concerning for a Guillory Akilah lesion. Given the patient's severe pain, sudden onset, decreased H&H, I will the patient's presentation with the covering orthopedic provider. 0650: At this time we do not have orthopedic coverage. Patient initially requested transfer to [facility], I did discuss transfer nurse who discuss the patient's case with their orthopedic doctor. There orthopedic doctor felt that this patient should be transferred to a tertiary care facility such as [facility]. I did talk to the trauma surgeon at [facility], Dr. Vanegas who did accept the patient as an ED to ED transfer as a trauma consult. The patient's repeat H&H revealed a slight increase from 15.5 and 30.6-10.9 and 32.1. The patient will be transferred by BLS ambulance. Lab Data 10/26/22 02:54 10/26/22 02:54 Labs: Lab Results 10/26/22 10/26/22 10/26/22 Range/Units 02:54 02:54 02:54 WBC 5.6 (4.8-10.8) X10*3/uL RBC 3.50 L D (4.60-5.80) X10*6/uL Hgb 10.5 L (14.0-18.0) g/dl Hct 30.6 L (42.0-52.0) % MCV 87.4 (80.0-98.0) fL MCH 30.0 (27.0-33.0) pg MCHC 34.3 (31.0-36.0) g/dl RDW 13.2 (11.0-16.0) % Plt Count 210 (160-400) X10*3/uL MPV 8.7 L (9.4-12.4) fL Immature Gran % (Auto) 0.7 H (0.0-0.4) % Neut % (Auto) 60.5 (45-73) % Lymph % (Auto) 25.7 (20-40) % [place] % (Auto) 8.8 (2-11) % Eos % (Auto) 3.6 (0-4) % Baso % (Auto) 0.7 (0-2) % Lymph # (Auto) 1.4 (1.2-4.9) X10*3/uL [place] # (Auto) 0.5 (0.1-1.2) X10*3/uL Eos # (Auto) 0.2 (0.0-0.4) X10*3/uL Baso # (Auto) 0.0 (0.0-0.2) X10*3/uL Abs Immat Gran (auto) 0.04 H (0.00-0.03) X10*3/uL Absolute Neuts (auto) 3.4 (2.0-8.3) x10*3/uL Absolute Nucleated RBC 0.000 (0.0-0.012) X10*3/uL Nucleated RBC % (auto) 0.0 (0.0-0.2) /100WBC PT (10.0-13.1) SEC INR (0.9-1.1) APTT 26.8 (26.0-36.4) SEC Sodium 138 (135-145) mmol/L Potassium 3.7 (3.3-5.1) mmol/L Chloride 108 (96-108) mmol/L Carbon Dioxide 25 (22-29) mmol/L Anion Gap 9 L (12-20) BUN 16 (9-16) mg/dL Creatinine 1.09 (0.5-1.4) mg/dL Estim Creat Clear Calc 79.6 Estimated GFR > 60 Random Glucose 132 H (60-115) mg/dL Calcium 8.1 L (8.4-10.2) mg/dL Total Bilirubin 0.7 (0.0-1.0) mg/dL AST 14 (5-37) U/L ALT 6 (0-40) U/L Alkaline Phosphatase 101 (39-117) U/L Total Creatine Kinase 98 (38-174) U/L Total Protein 5.8 L (6.5-8.0) g/dL Albumin 3.3 L (3.5-5.0) g/dL Lipase 37 (8-78) U/L Urine Color Urine Appearance Urine pH (5.0-9.0) Ur Specific [place] (1.005-1.025) Urine Protein (Neg-Trace) mg/dL Urine Glucose (UA) (Negative) mg/dL Urine Ketones (Negative) mg/dL Urine Blood (Negative) Urine Nitrite (Negative) Ur Leukocyte Esterase (Negative) COVID-19 (SLY) (Negative) COVID-19 Clin Com Blood Type Antibody Screen 10/26/22 10/26/22 10/26/22 Range/Units 02:54 02:54 04:21 WBC (4.8-10.8) X10*3/uL RBC (4.60-5.80) X10*6/uL Hgb (14.0-18.0) g/dl Hct (42.0-52.0) % MCV (80.0-98.0) fL MCH (27.0-33.0) pg MCHC (31.0-36.0) g/dl RDW (11.0-16.0) % Plt Count (160-400) X10*3/uL MPV (9.4-12.4) fL Immature Gran % (Auto) (0.0-0.4) % Neut % (Auto) (45-73) % Lymph % (Auto) (20-40) % [place] % (Auto) (2-11) % Eos % (Auto) (0-4) % Baso % (Auto) (0-2) % Lymph # (Auto) (1.2-4.9) X10*3/uL [place] # (Auto) (0.1-1.2) X10*3/uL Eos # (Auto) (0.0-0.4) X10*3/uL Baso # (Auto) (0.0-0.2) X10*3/uL Abs Immat Gran (auto) (0.00-0.03) X10*3/uL Absolute Neuts (auto) (2.0-8.3) x10*3/uL Absolute Nucleated RBC (0.0-0.012) X10*3/uL Nucleated RBC % (auto) (0.0-0.2) /100WBC PT 10.8 (10.0-13.1) SEC INR 0.9 (0.9-1.1) APTT (26.0-36.4) SEC Sodium (135-145) mmol/L Potassium (3.3-5.1) mmol/L Chloride (96-108) mmol/L Carbon Dioxide (22-29) mmol/L Anion Gap (12-20) BUN (9-16) mg/dL Creatinine (0.5-1.4) mg/dL Estim Creat Clear Calc Estimated GFR Random Glucose (60-115) mg/dL Calcium (8.4-10.2) mg/dL Total Bilirubin (0.0-1.0) mg/dL AST (5-37) U/L ALT (0-40) U/L Alkaline Phosphatase (39-117) U/L Total Creatine Kinase (38-174) U/L Total Protein (6.5-8.0) g/dL Albumin (3.5-5.0) g/dL Lipase (8-78) U/L Urine Color Yellow Urine Appearance Clear Urine pH 6.5 (5.0-9.0) Ur Specific [place] >= 1.030 H (1.005-1.025) Urine Protein Trace (Neg-Trace) mg/dL Urine Glucose (UA) Negative (Negative) mg/dL Urine Ketones Trace (Negative) mg/dL Urine Blood Negative (Negative) Urine Nitrite Negative (Negative) Ur Leukocyte Esterase Negative (Negative) COVID-19 (SLY) Negative (Negative) COVID-19 Clin Com See Note Blood Type Antibody Screen 10/26/22 10/26/22 Range/Units 05:58 05:58 WBC (4.8-10.8) X10*3/uL RBC (4.60-5.80) X10*6/uL Hgb 10.9 L (14.0-18.0) g/dl Hct 32.1 L (42.0-52.0) % MCV (80.0-98.0) fL MCH (27.0-33.0) pg MCHC (31.0-36.0) g/dl RDW (11.0-16.0) % Plt Count (160-400) X10*3/uL MPV (9.4-12.4) fL Immature Gran % (Auto) (0.0-0.4) % Neut % (Auto) (45-73) % Lymph % (Auto) (20-40) % [place] % (Auto) (2-11) % Eos % (Auto) (0-4) % Baso % (Auto) (0-2) % Lymph # (Auto) (1.2-4.9) X10*3/uL [place] # (Auto) (0.1-1.2) X10*3/uL Eos # (Auto) (0.0-0.4) X10*3/uL Baso # (Auto) (0.0-0.2) X10*3/uL Abs Immat Gran (auto) (0.00-0.03) X10*3/uL Absolute Neuts (auto) (2.0-8.3) x10*3/uL Absolute Nucleated RBC (0.0-0.012) X10*3/uL Nucleated RBC % (auto) (0.0-0.2) /100WBC PT (10.0-13.1) SEC INR (0.9-1.1) APTT (26.0-36.4) SEC Sodium (135-145) mmol/L Potassium (3.3-5.1) mmol/L Chloride (96-108) mmol/L Carbon Dioxide (22-29) mmol/L Anion Gap (12-20) BUN (9-16) mg/dL Creatinine (0.5-1.4) mg/dL Estim Creat Clear Calc Estimated GFR Random Glucose (60-115) mg/dL Calcium (8.4-10.2) mg/dL Total Bilirubin (0.0-1.0) mg/dL AST (5-37) U/L ALT (0-40) U/L Alkaline Phosphatase (39-117) U/L Total Creatine Kinase (38-174) U/L Total Protein (6.5-8.0) g/dL Albumin (3.5-5.0) g/dL Lipase (8-78) U/L Urine Color Urine Appearance Urine pH (5.0-9.0) Ur Specific [place] (1.005-1.025) Urine Protein (Neg-Trace) mg/dL Urine Glucose (UA) (Negative) mg/dL Urine Ketones (Negative) mg/dL Urine Blood (Negative) Urine Nitrite (Negative) Ur Leukocyte Esterase (Negative) COVID-19 (SLY) (Negative) COVID-19 Clin Com Blood Type A Positive Antibody Screen NEGATIVE Critical Care Time Critical Care Time Critical Care Time: Yes Total Critical Care Time: 35 Attestation: Critical Care: The patient was critically ill with a high probability of imminent or life threatening deterioration. I spent greater than 30 minutes of discontinuous time evaluating the patient,delivering critical care at the bedside, discussing and evaluating pertinent data with consultants. Critical care time does not include time spent performing separately billable procedures or teaching. Total time spent performing critical care was 35 minutes. Discharge Plan Discharge Clinical Impression: Hematoma of left hip, Anemia, Fall, Guillory Akilah lesion Patient Disposition: [facility] Transfer Details: ED to ED transfer [facility] Prescriptions: No Action Paxlovid (EUA) 300 mg (150 mg x 2)-100 mg tablets,dose pack See Rx Instructions .ROUTE .COMPLEX Qty: 30 0RF Rx Instructions: take TWO 150 mg tablets of nirmatrelvir with ONE 100 mg tablet of ritonavir twice daily for 5 days ondansetron 4 mg tablet,disintegrating 4 mg PO Q6H PRN (Reason: nausea and vomiting) Qty: 10 0RF
[2022-10-26 04:15] VITALS: BP 126/62; PULSE 70; RESP 18; TEMP 36.4; O2SAT 96
--- NOTE | 2022-10-26 04:18 | MHC.EDTECH ---
Vitals obtained ,urine specimen collected,patient repositioned for comfort.Call day in reach
--- NOTE | 2022-10-26 04:22 | MHC.EDTECH ---
Patient voided 200cc of yellow urine in urinal.
[2022-10-26 04:28] LABS: Appearance Urine Clear; Color Urine Yellow; Glucose Urine UA Negative (Negative); Leukocyte Esterase Urine Negative (Negative); Nitrite Urine Negative (Negative); PH 6.5 (5.0-9.0); Specific Gravity - Urine >= 1.030 (1.005-1.025); Urine Blood Negative (Negative); Urine Ketones Trace mg/dL (Negative); Urine Protein Trace mg/dL (Neg-Trace)
[2022-10-26 05:47] VITALS: BP 117/58; PULSE 74; RESP 16; TEMP 36.4; O2SAT 95
--- NOTE | 2022-10-26 05:47 | MHC.EDTECH ---
@[phone] CALL PLACED TO [facility] [place] LINE [phone] @ DR GORDON REQUEST [facility]IN ANSWERS, TAKES PT INFO THEN ASKS TO SPEAK WITH DR EVAN GORDON TAKES OVER CALL RIGHT AWAY
--- NOTE | 2022-10-26 05:48 | MHC.EDTECH ---
Vitals taken and Type and Screen obtained. Patient is resting at this time call day in reach.
[2022-10-26 06:04] LABS: Hematocrit 32.1 % (42.0-52.0); Hemoglobin 10.9 g/dl (14.0-18.0)
--- NOTE | 2022-10-26 06:08 | MHC.EDTECH ---
@0629 CALL RECEIVED FROM [facility] OF THE [facility] LINE ASKING TO SPEAK WITH DR EVAN GORDON TAKES OVER CALL RIGHT AWAY THEN TELLS THIS [employer], THE TRANSFER WAS DECLINED BY NURSING THEN REQUESTS CALL OUT TO [facility] PT [place] LINE
--- NOTE | 2022-10-26 06:12 | MHC.EDTECH ---
@0610 CALL PLACED TO [facility] PT [place] LINE @ DR GORDON REQUEST AMITA ANSWERS, TAKES PT INFO THEN ASKS TO SPEAK WITH DR EVAN GORDON TAKES OVER CALL RIGHT AWAY
[2022-10-26] MEDS: HYDROmorphone HCl 0.5 MG/0.5 ML SYRINGE IVPUSH (06:17)
--- NOTE | 2022-10-26 06:43 | MHC.EDTECH ---
@[phone] CALL RECEIVED FROM [facility] OF THE [facility] PT TX LINE ASKING TO SPEAK WITH DR EVAN GORDON TAKES OVER CALL RIGHT AWAY
--- NOTE | 2022-10-26 06:51 | MHC.EDTECH ---
@[phone] CALL PLACED TO [facility] PT TX LINE TO FIND OUT ACCEPTING MD AND ROUTE OF ENTRY DR AWAD IS ACCEPTING ER TO ER TRANSFER
[2022-10-26 07:48] VITALS: BP 109/33; PULSE 82; RESP 16; O2SAT 95
--- NOTE | 2022-10-26 09:09 | PC.NURSE ---
ATTEMPT X 2 TO CALL REPORT TO [facility], NO ANSWER
== END 2022-10-26 09:09 | disposition short-term general hospital (02) ==
PROVIDERS: Emergency Provider Emergency Medicine Emergency Medical Services; PCP Internal Medicine
DX: S70.02XA Contusion of left hip, initial encounter (principal); D64.9 Anemia, unspecified; R10.2 Pelvic and perineal pain; M54.6 Pain in thoracic spine; M54.50 Low back pain, unspecified; X58.XXXA Exposure to other specified factors, initial encounter; Y93.9 Activity, unspecified; Y92.9 Unspecified place or not applicable; Y99.9 Unspecified external cause status; Z20.822 Contact with and (suspected) exposure to COVID-19; Z20.828 Contact with and (suspected) exposure to other viral communicable diseases; Z79.899 Other long term (current) drug therapy
CPT/HCPCS: 36415; 71260; 74177; 80053; 81003; 82550; 83690; 85014; 85018; 85025; 85610; 85730; 86850; 86900; 86901; 87635; 96374; 96375; 96376; 99284; J1170; J2270; Q9967

== ENCOUNTER 2023-12-03 23:32 | Emergency (ER) | payer MEDICARE, MEDICAID, SELFPAY ==
--- NOTE | ~2023-12-03 | CT_ITS ---
EXAMINATION: CT ABDOMEN AND PELVIS WITHOUT CONTRAST CLINICAL INFORMATION: Pain COMPARISON: 10/26/2022 TECHNIQUE: Multidetector volumetric imaging was performed from the superior aspect of the liver through the pubic symphysis. Sagittal and coronal reformatted images were obtained on the technologist's workstation. This CT examination was performed using dose optimization techniques as appropriate, variously including the following: *Automated exposure control *Adjustment of mA and/or kV according to patient size (this includes techniques or standardized protocols for targeted exams where dose is matched to indication/reason for exam; i.e. extremities or head) *Use of iterative reconstruction technique DLP: 773 mGy-cm FINDINGS: LUNG BASES: The visualized lung bases are unremarkable. LIVER, GALLBLADDER, AND BILIARY TREE: The liver is normal in size, shape, and attenuation. No focal hepatic lesion or biliary ductal dilatation is present. The gallbladder is unremarkable with no evidence of radiopaque gallstones, gallbladder wall thickening, or obvious pericholecystic inflammatory changes. PANCREAS: Unremarkable. SPLEEN: Unremarkable. ADRENAL GLANDS: Unremarkable. KIDNEYS AND URETERS: Hyperdense lesion emanating off the superior pole left kidney. 2.5 x 2 cm. This may represent hyperdense cysts. Ultrasound would be recommended. Solid lesion cannot be excluded Probable cyst lower pole right kidney BLADDER: Unremarkable. GASTROINTESTINAL TRACT: There are prominent redundant sigmoid which does emanate to the upper abdomen but no convincing evidence for a volvulus. There is also air in small bowel. Large bowel caliber in the redundant sigmoid measures up to 6 mm. ABDOMINAL WALL: No significant hernia is appreciated. LYMPH NODES: Normal. VASCULAR: Unremarkable. PELVIC VISCERA: Unremarkable. OSSEOUS STRUCTURES: Decreasing soft tissue change of the left hip consistent with resolving hematoma. There is some residual attenuation here. CT/CT abdomen pelvis wo IV con IMPRESSION: Findings as described above. While there is a redundant mildly distended sigmoid extending up to the upper abdomen there is no convincing evidence for a volvulus on this study. Correlation recommended clinically. Consider colonoscopy for full evaluation Hyperdense lesion emanating off superior pole left kidney could represent hyperdense cysts. Ultrasound recommended to further evaluate. No suspicious fluid collection. Other findings as described above Fleischner guidelines were followed.
[2023-12-03 23:43] VITALS: BP 125/71; PULSE 68; RESP 18; TEMP 36.8; O2SAT 95; BMI 31.3
[2023-12-03 23:57] LABS: MANUAL DIFF FLAG NO
[2023-12-03 23:59] LABS: Basophils Absolute Auto 0.1 X10*3/uL (0.0-0.2); Basophils Percent Auto 0.7 % (0-2); Eosinophils Absolute Auto 0.1 X10*3/uL (0.0-0.4); Eosinophils Percent Auto 1.7 % (0-4); Hematocrit 37.2 % (42.0-52.0); Hemoglobin 13.1 g/dl (14.0-18.0); Imm Gran Abs Auto 0.02 X10*3/uL (0.00-0.03); Imm Gran Pct Auto 0.3 % (0.0-0.4); Lymphocytes Absolute Auto 2.2 X10*3/uL (1.2-4.9); Lymphocytes Percent Auto 29.4 % (20-40); Mean Corpuscular HGB Conc 35.2 g/dl (31.0-36.0); Mean Corpuscular Hemoglobin 30.3 pg (27.0-33.0); Mean Corpuscular Volume 86.1 fL (80.0-98.0); Mean Platelet Volume 8.6 fL (9.4-12.4); Monocytes Absolute Auto 0.6 X10*3/uL (0.1-1.2); Monocytes Percent Auto 7.4 % (2-11); Neutrophils Absolute Auto 4.5 x10*3/uL (2.0-8.3); Neutrophils Percent Auto 60.5 % (45-73); Platelet Count 212 X10*3/uL (160-400); Red Blood Count 4.32 X10*6/uL (4.60-5.80); Red Cell Distribution Width 12.7 % (11.0-16.0); White Blood Count 7.5 X10*3/uL (4.8-10.8)
[2023-12-04 00:14] LABS: Alanine Aminotransferase 9 U/L (0-40); Albumin Level 3.8 g/dL (3.5-5.0); Alkaline Phosphatase 91 U/L (39-117); Anion Gap 16 (12-20); Aspartate Amino Transferase 15 U/L (5-37); Bilirubin Total 0.6 mg/dL (0.0-1.0); Blood Urea Nitrogen 17 mg/dL (9-16); Carbon Dioxide 25 mmol/L (22-29); Chloride 101 mmol/L (96-108); Creatinine Clr Calc Pharmacy 70.6; Estimated Glomerular Filt Rate > 60; Glucose Random 101 mg/dL (60-115); Lipase 37 U/L (8-78); Potassium 4.3 mmol/L (3.3-5.1); Sodium 138 mmol/L (135-145); Total Protein 7.1 g/dL (6.5-8.0)
[2023-12-04 03:31] VITALS: BP 123/70; PULSE 70; RESP 14; TEMP 36.3; O2SAT 97
--- NOTE | 2023-12-04 04:22 | ED_ITS ---
HPI - Abdominal Pain General Chief Complaint: Abdominal Pain Stated Complaint: stomach pain Time Seen by Provider: 12/04/23 03:46 Source: patient and family Mode of arrival: ambulatory Limitations: no limitations History of Present Illness ED Provider: DR. Chew HPI narrative: 68-year-old male came in for evaluation of abdominal pain started 2 days ago pain is mostly to the right side, and radiates to the right groin area and right scrotum, patient admitted to carrying a heavy AC yesterday patient fell with no head injury. Last bowel movement was 3-4 days ago patient with chronic constipation. Declined history of intra-abdominal surgery. Related Data Home Medications ?Medication ?Instructions ?Recorded ?Confirmed carbidopa 25 mg-levodopa 100 mg tab PO 02/06/21 tablet dextromethorphan 20 mg-quinidine 1 cap PO BID 02/06/21 10 mg capsule (Nuedexta) diazepam 5 mg tablet 5 mg PO TID PRN 02/06/21 hydrocortisone 2.5 % topical cream appl topical 02/06/21 omeprazole 40 mg capsule,delayed 40 mg PO DAILY 02/06/21 release tamsulosin 0.4 mg capsule 0.4 mg PO DAILY 02/06/21 temazepam 15 mg capsule 15 mg PO BEDTIME PRN 02/06/21 Previous Rx's ?Medication ?Instructions ?Recorded nirmatrelvir 300 mg (150 mg See Rx Instructions PO .COMPLEX 07/31/22 x2)-ritonavir 100 mg tablet,dose #30 ea pack (Paxlovid) ondansetron 4 mg disintegrating 4 mg PO Q6H PRN nausea and 07/31/22 tablet vomiting #10 tabs Allergies Allergy/AdvReac Type Severity Reaction Status Date / Time insect venom Allergy unknown Verified 12/03/23 23:44 tramadol Allergy Unknown Verified 12/03/23 23:44 Review of Systems Review of Systems All other systems are reviewed and are negative Constitutional: Reports as per HPI and Reports no additional constitutional complaints Eyes: Reports as per HPI and Reports no additional eye complaints Reports system reviewed and no additional complaints, except as documented Cardiovascular: Reports as per HPI and Reports no additional cardiovascular complaints Respiratory: Reports as per HPI and Reports no additional respiratory complaints Gastrointestinal: Reports as per HPI and Reports no additional gastrointestinal complaints Genitourinary: Reports no additional female genitourinary complaints Musculoskeletal: Reports no additional musculoskeletal complaints Skin/Breast: Reports system reviewed and no additional complaints, except as docu Psychiatric: Reports no additional psychiatric complaints Endocrine: Reports no additional endocrine complaints Hematologic/Lymphatic: Reports no additional hematologic/lymphatic complaints Allergic/Immunologic: Reports no additional allergic/immunologic complaints Reports system reviewed and no additional complaints, except as documented and Reports Abnormal speech present COUNTS INCLUDE 234 BEDS AT THE [facility] Past Medical History Medical History Chronic pain syndrome Left rib fracture Parkinson disease, symptomatic Insomnia Hiatal hernia Dysphagia Chronic constipation Abnormal iliac reflex Vitamin B12 deficiency Obstructive sleep apnea Diverticulitis Hemorrhoids, internal Benign prostatic hyperplasia Esophageal reflux Parkinson disease Depression Hypertension Hyperlipidemia Atrial flutter Social History Social History Alcohol intake: never Advance Directives: No Advance Directives Information Provided: Yes Do you have a plan to hurt others: No Plan Physical Exam ED Vital Signs: Vital Signs - 24 hr 12/03/23 23:43 12/04/23 03:31 12/04/23 06:25 Temperature 98.3 F 97.4 F 97.7 F Pulse Rate 68 70 59 Respiratory Rate 18 14 14 Blood Pressure 125/71 123/70 166/65 H Pulse Oximetry 95 97 97 Oxygen Delivery Method Room Air Room Air Room Air BMI result Body Mass Index 31.3 Vital signs have been reviewed and appear to be correct. Blood pressure elevated. Heart rate normal. Respiratory rate normal. Temperature normal. Oxygen saturation normal. Appearance: Alert. Oriented X3. No acute distress. Head: Normal external exam. Normocephalic. Atraumatic. No Gipson signs noted. No raccoon eyes noted Eyes: PERRLA. EOMI. Conjunctiva and sclera normal. Eyelids normal. ENT: TM's Normal. Pharynx normal. Uvula midline. Moist mucous membranes. No trismus noted. No drooling noted. No muffled voice noted. Neck: Normal inspection. Neck supple. FROM. No adenopathy. Thyroid Normal. No meningeal signs. No neck mass noted. CVS: Normal heart rate and rhythm. Heart sound normal. No murmurs noted. Pulses normal throughout. Respiratory: No respiratory distress. Painless inspiration. Breath sounds normal. No wheezes/rales/rhonchi noted. Chest nontender. No accessory muscle usage noted or decreased air movement noted. Abdomen: Soft, lower abdominal tenderness, no rebound tenderness, no guarding. Bowel sounds normal in all 4 quadrants. No distention noted. No organomegaly noted. No visible injury noted. : Normal inspection, no redness or swelling, no testicular tenderness, intact cremasteric reflexes. Back: No CVA tenderness. Full range of motion noted. Skin: Skin warm and dry. Normal skin color. Normal skin turgor. No rashes/lesions/lacerations noted. Extremities: No lower extremity edema. Extremities exhibit normal range of motion. Extremities nontender. Neuro: Oriented X 3. Cranial nerve exam: II-XII are grossly intact No motor deficit. No sensory deficit. Reflexes normal. Course Reevaluation(s) Reevaluation #1: 68-year-old male with abdominal pain, labs are unremarkable, signed out to Dr. Grove to follow up with CT result and final disposition. Time: 06:45 Medical Decision Making Differential Diagnosis Differential Diagnoses: The differential diagnosis associated with the presentation includes (Complicated hernia, colitis, diverticulitis, acute appendicitis, electrolyte derangement, severe anemia, UTI, kidney stone.) Admission/Observation Consideration of admission/observation: Escalation of care including admission/observation considered Lab Data MDM Lab Attestation statement: I reviewed the patient's lab results. 12/03/23 23:50 12/03/23 23:50 Labs: Lab Results 12/03/23 12/04/23 Range/Units 23:50 04:27 WBC 7.5 (4.8-10.8) X10*3/uL RBC 4.32 L D (4.60-5.80) X10*6/uL Hgb 13.1 L D (14.0-18.0) g/dl Hct 37.2 L (42.0-52.0) % MCV 86.1 (80.0-98.0) fL MCH 30.3 (27.0-33.0) pg MCHC 35.2 (31.0-36.0) g/dl RDW 12.7 (11.0-16.0) % Plt Count 212 (160-400) X10*3/uL MPV 8.6 L (9.4-12.4) fL Immature Gran % (Auto) 0.3 (0.0-0.4) % Neut % (Auto) 60.5 (45-73) % Lymph % (Auto) 29.4 (20-40) % [place] % (Auto) 7.4 (2-11) % Eos % (Auto) 1.7 (0-4) % Baso % (Auto) 0.7 (0-2) % Lymph # (Auto) 2.2 (1.2-4.9) X10*3/uL [place] # (Auto) 0.6 (0.1-1.2) X10*3/uL Eos # (Auto) 0.1 (0.0-0.4) X10*3/uL Baso # (Auto) 0.1 (0.0-0.2) X10*3/uL Abs Immat Gran (auto) 0.02 (0.00-0.03) X10*3/uL Absolute Neuts (auto) 4.5 (2.0-8.3) x10*3/uL Absolute Nucleated RBC 0.000 (0.0-0.012) X10*3/uL Nucleated RBC % (auto) 0.0 (0.0-0.2) /100WBC Sodium 138 (135-145) mmol/L Potassium 4.3 (3.3-5.1) mmol/L Chloride 101 (96-108) mmol/L Carbon Dioxide 25 (22-29) mmol/L Anion Gap 16 (12-20) BUN 17 H (9-16) mg/dL Creatinine 1.18 (0.5-1.4) mg/dL Estim Creat Clear Calc 70.6 Estimated GFR > 60 Random Glucose 101 (60-115) mg/dL Calcium 9.0 D (8.4-10.2) mg/dL Total Bilirubin 0.6 (0.0-1.0) mg/dL AST 15 (5-37) U/L ALT 9 (0-40) U/L Alkaline Phosphatase 91 (39-117) U/L Total Protein 7.1 (6.5-8.0) g/dL Albumin 3.8 (3.5-5.0) g/dL Lipase 37 (8-78) U/L Urine Color Yellow Urine Appearance Clear Urine pH 5.5 (5.0-9.0) Ur Specific [place] 1.020 (1.005-1.025) Urine Protein Negative (Neg-Trace) mg/dL Urine Glucose (UA) Negative (Negative) mg/dL Urine Ketones Negative (Negative) mg/dL Urine Blood Negative (Negative) Urine Nitrite Negative (Negative) Ur Leukocyte Esterase Negative (Negative) Medications Administered Discontinued Medications Generic Name Dose Route Start Last Admin Trade Name Freq PRN Reason Stop Dose Admin Oxycodone HCl 5 mg 12/04/23 05:25 12/04/23 05:43 Oxycodone Hcl Immed Release 5 Mg Tablet PO 12/04/23 05:26 5 mg ONCE ONE Administration Discharge Plan Discharge Clinical Impression: Abdominal pain Patient Disposition: Still a Patient Prescriptions: No Action Paxlovid 300 mg (150 mg x 2)-100 mg tablets,dose pack See Rx Instructions .ROUTE .COMPLEX Qty: 30 0RF Rx Instructions: take TWO 150 mg tablets of nirmatrelvir with ONE 100 mg tablet of ritonavir twice daily for 5 days ondansetron 4 mg tablet,disintegrating 4 mg PO Q6H PRN (Reason: nausea and vomiting) Qty: 10 0RF Print Language: Latvian
[2023-12-04 04:32] LABS: Appearance Urine Clear; Color Urine Yellow; Glucose Urine UA Negative (Negative); Leukocyte Esterase Urine Negative (Negative); Nitrite Urine Negative (Negative); PH 5.5 (5.0-9.0); Urine Blood Negative (Negative); Urine Ketones Negative (Negative); Urine Protein Negative (Neg-Trace)
[2023-12-04] MEDS: oxyCODONE HCl Immed Release 5 MG TABLET PO (05:43)
[2023-12-04 06:25] VITALS: BP 166/65; PULSE 59; RESP 14; TEMP 36.5; O2SAT 97
[2023-12-04 07:40] VITALS: BP 144/76; PULSE 70; RESP 16; TEMP 36.6; O2SAT 97
--- NOTE | 2023-12-04 07:41 | PC.NURSE ---
PT STATES PASSED SOME GAS, FEELS BETTER. WANTS TO GO HOME. AWARE
[2023-12-04 08:09] VITALS: BP 144/76; PULSE 70; RESP 16; TEMP 36.6; O2SAT 97
== END 2023-12-04 08:10 | disposition home or self-care (01) ==
PROVIDERS: Emergency Medicine; Emergency Provider Emergency Medicine Emergency Medical Services
DX: R10.11 Right upper quadrant pain (principal); G20.A1 Parkinson's disease without dyskinesia, without mention of fluctuations; I10 Essential (primary) hypertension; I48.92 Unspecified atrial flutter; K59.00 Constipation, unspecified
CPT/HCPCS: 36415; 74176; 80053; 81003; 83690; 85025; 99283; 99284

== ENCOUNTER 2025-04-05 19:21 | Emergency (ER) | payer MEDICARE, MEDICAID, SELFPAY ==
--- OUTSIDE RECORDS SUMMARY | 2025-04-04 14:00 | XMS_ITS | Encounter Summary ---
Author Organization [facility] Address [address] [place] [address] Care Team Providers Care Inspector Water Pollution Control Name Role Phone Ashley Ramirez Primary Care Provider [phone] Reason for Visit * Consultation (Routine) - Pending Review Specialty Diagnoses / Procedures Referred By Diaz mejia Referred To Contact Neurology Diagnoses : MD Ariana Flower [facility] Neurology Administrative As the 2 PM canceled, please ask Mr. Zack Donovan if he can come at 2 PM tomorrow and block the full hour for this appointment. Thank you. Procedures FOLLOW UP MOVEMENT Ashley Ramirez [address] [place] [address] Phone: tel: fax: Zach Reddy MD [address] [place] [id number] Phone: tel: fax: Referral ID Status Reason Start Date Expiration Date V isits Requested Visits Authorized [id number] Pending Review 04/04/2025 10/04/2026 6 6 Encounter Details Date Type Department Care Team (Late st Contact Info) Description 04/04/2025 2:00 PM EDT Office Visit [facility] [address] [place] [address] Zach Reddy MD [address] [place] [address] Social History Tobacco Use Types Packs/Day Years Used Date Smoking Tobacco: Never Smokeless Tobacco: Never Comments:: Alcohol Use Standard Drinks/Week Comments Yes 0 (1 standard drink = 0.6 oz pur e alcohol) rare beer Sex and Gender Information Value Date Recorded Sex Assigned at Male 10/09/2022 1:24 PM EDT Legal Sex Male 1:10 AM EDT Gender Identity Male 10/09/2022 1:24 PM EDT Sexual Orientation Straight 10/09/2022 1: 24 PM EDT documented as of this encounter Last Filed Vital Signs Vital Sign Reading Time Taken Comments Blood Pressure 138/74 04/04/2025 3:10 PM EDT Pulse 72 04/04/2025 3:10 PM EDT Temperature 36.6 C (97.9 F) 04/04/2025 3:10 PM EDT Respiratory Rate - - Oxygen Saturation - - Inhaled Oxygen Concentration - - Weight - - Height - - Body Mass Index - - documented in this encounter Patient Instructions * Patient Instructions* Zach Reddy MD - 04/04/2025 2:30 PM EDT [email or web address] Check your sitting and standing BP and heart rate after lunch for 1 week and send it to Dr. Reddy. Fax number [phone]. documented in this encounter Plan of Treatment Upcoming Encounters Date Type Department Care Team (Late st Contact Info) Description 07/11/2025 11:00 AM EST Office Visit [facility] [address] [place] [id number] Hiral Diaz NP [address] [place] [id number] 10/02/2025 11:00 AM EDT Office Visit [facility] [address] [place] [id number] Hiral Diaz NP [address] [place] [phone] 12/07/2025 2:00 PM EDT Procedure visit [facility] [address] [place] [phone] Zach Reddy MD [address] [place] [id number] documented as of this encounter Visit Diagnoses Not on filedocumented in this encounter Care Teams Inspector Water Pollution Control Relationship Specialty Start Date End Date Ashley Ramirez [address] [place] [id number] PCP - General 01/29/17 documented as of this encounter
--- NOTE | ~2025-04-05 | CT_ITS ---
CLINICAL HISTORY: large laceration to scalp CT Brain without contrast Comparison: CT/SR - CT HEAD WITHOUT IV CONTRAST - 10/19/2022 11:11 AM EDT FINDINGS: Cortical sulci: There is diffuse prominence of the cortical sulci compatible with age-related atrophy. Ventricles: Normal for age Brain parenchyma: There is patchy lucency throughout the deep white matter indicating chronic microvascular leukomalacia. Extra axial spaces: Normal Posterior Fossa: Normal Extracranial soft tissues: Normal Additional abnormality: Artifact from the electrodes of the deep brain stimulator. IMPRESSION: Age-related atrophy with chronic microvascular leukomalacia. No hemorrhage, mass effect, or acute findings identified. This document has been electronically signed by: Joleen Borges MD on 04/05/2025 20:55:44
--- NOTE | 2025-04-05 19:23 | ED.GENADULT ---
HPI - General Adult General Chief complaint: Wound/Laceration Stated complaint: head lac Time Seen by Provider: 04/05/25 20:23 Source: patient, family, RN notes reviewed and old records reviewed Mode of arrival: ambulatory Limitations: no limitations History of Present Illness ED Provider: Irving HPI narrative: 69-year-old male past medical history significant for Parkinson's disease presents for evaluation after a fall. The patient has a history of multiple falls pain He actually saw a new neurologist yesterday in his plan to get into physical therapy. Today he slipped in the kitchen fell forward striking his head on the corner of a wooden board. There was no loss of consciousness. The patient does have a brain stimulator that was inserted 19 years ago. He reports minor headache. Denies any prodrome leading to his fall, he was not short of breath denied any palpitations, denies any chest pain. He denies any other induration in the fall Denies any neck pain. Zuhair he is not show in his last tetanus shot was but states it was likely many years ago Related Data Home Medications ?Medication ?Instructions ?Recorded ?Confirmed carbidopa 25 mg-levodopa 100 mg tab PO 02/06/21 tablet dextromethorphan 20 mg-quinidine 1 cap PO BID 02/06/21 10 mg capsule (Nuedexta) Held on 07/31/22. Instructions: Resume on 08/06/22. diazepam 5 mg tablet 5 mg PO TID PRN 02/06/21 hydrocortisone 2.5 % topical cream appl topical 02/06/21 omeprazole 40 mg capsule,delayed 40 mg PO DAILY 02/06/21 release tamsulosin 0.4 mg capsule 0.4 mg PO DAILY 02/06/21 Held on 07/31/22. Instructions: Resume on 08/06/22. temazepam 15 mg capsule 15 mg PO BEDTIME PRN 02/06/21 Previous Rx's ?Medication ?Instructions ?Recorded nirmatrelvir 300 mg (150 mg See Rx Instructions PO .COMPLEX 07/31/22 x2)-ritonavir 100 mg tablet,dose #30 ea pack (Paxlovid) ondansetron 4 mg disintegrating 4 mg PO Q6H PRN nausea and 07/31/22 tablet vomiting #10 tabs Allergies Allergy/AdvReac Type Severity Reaction Status Date / Time insect venom Allergy unknown Verified 04/05/25 19:32 tramadol Allergy Unknown Verified 04/05/25 19:32 Review of Systems Constitutional: Constitutional: Denies anorexia, Denies body ache(s), Denies chills, Denies fatigue, Reports frequent falls, Reports headache(s) and Reports weakness (Consistent with a baseline) Eyes: Eyes: Denies blurry vision ENT: Denies vertigo, Denies dizziness, Reports headache(s) and Denies neck pain Cardiovascular: Cardiovascular: Denies chest pain and Denies dyspnea on exertion Respiratory: Respiratory: Denies cough and Denies dyspnea on exertion Gastrointestinal: Gastrointestinal: Denies abdominal pain Musculoskeletal: Musculoskeletal: Denies arthralgias, Denies joint swelling, Denies limited range of motion, Denies muscle weakness, Denies neck pain, Denies numbness and Denies tingling Integumentary/Breasts: Skin/Breast: Denies rash Neurologic: Denies vertigo, Denies dizziness, Reports frequent falls, Reports headache(s), Reports lack of coordination, Denies focal weakness, Denies numbness, Denies Sensory deficit (Neuro), Denies tingling, Denies paresthesias and Reports weakness (Consistent with a baseline) Psychiatric: Psychiatric: Denies anxiety Endocrine: Endocrine: Denies fatigue PMFSH Past Medical History Medical History Chronic pain syndrome Left rib fracture Parkinson disease, symptomatic Insomnia Hiatal hernia Dysphagia Chronic constipation Abnormal iliac reflex Vitamin B12 deficiency Obstructive sleep apnea Diverticulitis Hemorrhoids, internal Benign prostatic hyperplasia Esophageal reflux Parkinson disease Depression Hypertension Hyperlipidemia Atrial flutter Social History Social History Alcohol intake: never Advance Directives: No Advance Directives Information Provided: Yes Physical Exam ED Vital Signs: Vital Signs - 24 hr 04/05/25 19:26 Temperature 98.6 F Pulse Rate 73 Respiratory Rate 18 Blood Pressure 174/83 H Pulse Oximetry 96 Oxygen Delivery Method Room Air BMI result Body Mass Index 28.7 Const General: comfortable, no acute distress, alert and awake Nutritional Appearance: well nourished Orientation/consciousness: patient oriented x3 HENMT Other: There is a large about 10 cm flap-like laceration to the center of the scalp Head: No normocephalic and No atraumatic Throat: Yes posterior oropharynx normal Eyes Eyelids: Yes eyelids normal Conjunctivae: conjunctivae normal Sclerae: sclerae normal Corneas: corneas normal Pupils: Equal, round and reactive pupils present EOM: EOMs intact bilaterally Neck Neck: Yes full ROM Resp Effort & Inspection: normal respiratory effort, able to speak in complete sentences and not labored Skin General skin exam: elasticity normal Neuro General: patient oriented x3 Cranial nerves: Yes CN's II-XII intact bilaterally, Yes Equal, round and reactive pupils present and Yes Bilaterally intact EOM present Cognition (Neuro): normal cognition Sensory Exam: No Sensory deficit (Neuro) Extrem Other: Moving all extremities well without any obvious deformities Course Course Course Narrative: This is a rapid medical exam performed by Armani Parker NP: Additional HPI, ROS, PE not included below will be deferred to primary provider. Patient is a 69-y/o male pmhx of Parkinson's, frequent falls, presenting with HCP/fiance who reports that he fell forward, hitting his head on a board running across the bedroom. She denies LOC, he is not anticoagulated. Tdap UTD but patient requesting update. Large c-shaped flap laceration to scalp. Fiance states patient has had a deep brain stimulator implanted x 20 years. Plan: CT head, will need dewayne Medications Administered Discontinued Medications Generic Name Dose Route Start Last Admin Trade Name Chachoq PRN Reason Stop Dose Admin Acetaminophen 975 mg 04/05/25 20:14 04/05/25 20:22 Acetaminophen 325 Mg Tablet PO 04/05/25 20:15 975 mg ONCE ONE Administration Diphtheria/Tetanus/Acell Pertussis 0.5 ml 04/05/25 20:45 04/05/25 20:57 Diphth,Pertus(Acell),Tet Adult 0.5 Ml Syringe IM 04/05/25 20:46 0.5 ml .ONCE ONE Administration Lidocaine/Epinephrine 10 ml 04/05/25 20:45 04/05/25 20:57 Lidocaine Hcl 1%/Epi 1:100,000 20 Ml Vial INFILTRATI 04/05/25 20:46 10 ml ONCE ONE Administration Oxycodone HCl 5 mg 04/05/25 20:38 04/05/25 20:55 Oxycodone Hcl Immed Release 5 Mg Tablet PO 04/05/25 20:39 5 mg ONCE ONE Administration Procedures Laceration Laceration 1: Site: scalp Size (cm): 10 Description: flap and irregular Depth: simple, single layer Local Anesthetic: lidocaine 1% and with epi Amount of anesthesia used (mL): 8 Pre-repair: wound explored Skin layer closed with: dewayne Number of closing items:: 32 Technique: simple, interrupted Medical Decision Making Medical Decision Making MDM Narrative: 69-year-old male presents for evaluation of a nonsyncopal fall. His fall was witnessed by his fiancee. He slipped in the kitchen and fell striking his head pain there was no loss of consciousness. He has a large laceration, see procedure note for wound repair. CT scan of the brain was negative for traumatic injury. The patient has no C-spine tenderness, denies any significant neck pain outside of his baseline body aches. Vital signs are stable, he is at his mental status baseline. I did recommend physical therapy and case management evaluation to him in his fiancee. He would prefer to be discharged home as he is already working and getting physical therapy set up by his neurologist at home. Differential Diagnosis Differential Diagnoses: The differential diagnosis associated with the presentation includes Mechanical fall Laceration Calvarial fracture Intracranial hemorrhage Independent Interpretation I performed an independent interpretation of an: CT Scan Interpretation: Brain stimulator visualize but no obvious intracranial hemorrhage Radiology Impression Discussion of test interpretation with radiology: I have reviewed the radiologist's reading. Radiologist Impression: FINDINGS: Cortical sulci: There is diffuse prominence of the cortical sulci compatible with age-related atrophy. Ventricles: Normal for age Brain parenchyma: There is patchy lucency throughout the deep white matter indicating chronic microvascular leukomalacia. Extra axial spaces: Normal Posterior Fossa: Normal Extracranial soft tissues: Normal Additional abnormality: Artifact from the electrodes of the deep brain stimulator. IMPRESSION: Age-related atrophy with chronic microvascular leukomalacia. No hemorrhage, mass effect, or acute findings identified. This document has been electronically signed by: Joleen Borges MD on 04/05/2025 20:55:44 Discharge Plan Discharge Clinical Impression: Laceration, Parkinson disease, symptomatic Patient Disposition: Home, Self-Care Instructions: Parkinson Disease (ED), Head Laceration (ED) Additional Instructions: Your CT scan did not show any evidence of traumatic injury. Your laceration was repaired with 32 dewayne These may removed in 7 days Keep the area clean and dry pain Your tetanus was updated today. Follow up with your primary doctor, return for new or worsening symptoms Prescriptions: No Action Paxlovid 300 mg (150 mg x 2)-100 mg tablets,dose pack See Rx Instructions .ROUTE .COMPLEX Qty: 30 0RF Rx Instructions: take TWO 150 mg tablets of nirmatrelvir with ONE 100 mg tablet of ritonavir twice daily for 5 days ondansetron 4 mg tablet,disintegrating 4 mg PO Q6H PRN (Reason: nausea and vomiting) Qty: 10 0RF Print Language: Sami
[2025-04-05 19:26] VITALS: BP 174/83; PULSE 73; RESP 18; TEMP 37; O2SAT 96; BMI 28.7
--- OUTSIDE RECORDS SUMMARY | 2025-04-05 19:48 | XMS_ITS | Encounter Summary ---
Author Organization [facility] Address [address] [place] [address] Care Team Providers Care Tire Specialist Name Role Phone Ashley Ramirez Gracie Primary Care Provider [phone] Encounter Details Date Type Department Care Team (Late st Contact Info) Description 02/23/2025 Freedom2 Message [facility] Financial Clearance Department [address] [place] [address] [employer], Generic Provider [address] [place] [phone] Approval Social History Tobacco Use Types Packs/Day Years [...] PM EDT documented as of this encounter Plan of Treatment Upcoming Encounters Date Type Department Care Team (Late st Contact Info) Description 07/11/2025 11:00 AM EST Office Visit [facility] [address] [place], [place] [phone] Hiral Diaz NP [address] [place] [address] 10/02/2025 11:00 AM EDT Office Visit [facility] [address] [place] [phone] Hiral Diaz NP [address] [place] [phone] 12/07/2025 2:00 PM EDT Procedure visit [facility] [address] [place] [phone] Zach Reddy MD [address] [place] [phone] documented as of this encounter Visit Diagnoses Not on filedocumented in this encounter Care Teams Tire Specialist Relationship Specialty Start Date End Date Ashley Ramirez [address] [place] [phone] PCP - General 01/29/17 documented as of this encounter
--- OUTSIDE RECORDS SUMMARY | 2025-04-05 19:48 | XMS_ITS | Encounter Summary ---
Author Organization [facility] Address [address] [place] [address] Care Team Providers Care Project Development Leader Name Role Phone Ashley Ramirez Primary Care Provider [phone] Reason for Visit * Reason Onset Date Comments Med Refill 04/05/2025 Encounter Details Date Type Department Care Team (Late st Contact Info) Description 04/05/2025 Refill [facility] [address] [place] [address] Zach Reddy MD [address] [place] [address] Parkinson's disease without dyskinesia or fluctuating manifestations (HCC) Social History Tobacco Use Types Packs/Day Years [...] Description 07/11/2025 11:00 AM EST Office Visit [facility] [address] [place] [phone] Hiral Diaz NP [address] [place] [address] 10/02/2025 11:00 AM EDT Office Visit [facility] [address] [place] [phone] Hiral Diaz NP [address] [place] [address] 12/07/2025 2:00 PM EDT Procedure visit [facility] [address] [place] [phone] Zach Reddy MD [address] [place] [address] documented as of this encounter Visit Diagnoses Diagnosis Parkinson's disease without dyskinesia or fluctuating manifestations (HCC) documented in this encounter Care Teams Project Development Leader Relationship Specialty Start Date End Date Ashley Ramirez [address] [place] [id number] PCP - General 01/29/17 documented as of this encounter
--- OUTSIDE RECORDS SUMMARY | 2025-04-05 19:48 | XMS_ITS | Clinical Summary ---
Author Organization [facility] Address [address] [place] [address] Phone Care Team Providers Care Stereotyper Name Role Phone Ashley Ramirez MD Primary Care Provider [phone] Allergies Active Allergy Reactions Criticality Noted Date Comments Tramadol Itching 03/05/2021 Medications carbidopa-levo dopa CR (SINEMET CR) 25-100 mg per CR tablet 1 tablet 1 (one) time each day. 04/12/20 23 Active cyclobenzaprin e (FLEXERIL) 5 mg tablet Take 1 tablet (5 mg total) by mouth at bedtime as needed for muscle spasms. 04/17/20 23 Active dextromethorph an-quiNIDine (NUEDEXTA) 20-10 mg per capsule Take 1 capsule by mouth 1 (one) time each day. 06/14/20 13 Active diazePAM (VALIUM) 5 mg tablet Take 1 tablet (5 mg total) by mouth if needed. 10/20/19 14 Active hydrocortisone 2.5 % cream Apply locally twice a day 10/27/19 24 Active onabotulinumto xinA (BOTOX) 200 unit injection Inject as directed. Every 6 weeks/as directed Active tamsulosin (FLOMAX) 0.4 mg 24 hr capsule Take 1 capsule (0.4 mg total) by mouth 1 (one) time each day. 12/28/19 24 Active lifitegrast (Xiidra) 5 % dropperette Administer 1 drop into both eyes 3 (three) times a day. 09/03/19 24 Active omeprazole (PriLOSEC) [address] capsule Take 1 capsule (40 mg total) by mouth 1 (one) time each day. 90 capsule 3 05/25/20 24 Active Miebo, PF, 100 % drops 1 drop. prn 07/08/20 24 Active temazepam (RESTORIL) 15 mg capsule Take 1 capsule (15 mg total) by mouth at bedtime. 07/08/20 24 025 Active midodrine (PROAMATINE) 2.5 mg tablet 1 p.o. twice a day hold for systolic blood pressure above 150 60 each 08/11/19 25 Active Additional Information Patient not taking.Reported on 02/07/2025 atorvastatin (LIPITOR) 10 mg tablet TAKE 1 TABLET BY MOUTH DAILY 90 tablet 1 09/28/19 25 Active finasteride (PROSCAR) 5 mg tablet Take 1 tablet (5 mg total) by mouth 1 (one) time each day. Do not crush, chew, or split. Active linaCLOtide (Linzess) 290 mcg capsule Take 1 capsule (290 mcg total) by mouth 1 (one) time each day. 90 capsule 3 12/12/19 25 Active senna-docusate (PERICOLACE) 8.6-50 mg per tablet Take 1 tablet by mouth 2 (two) times a day. 60 tablet 3 12/12/19 25 Active lactulose (CHRONULAC) solution Take 30 mL (20 g total) by mouth 2 (two) times a day. 1800 mL 3 12/12/19 25 Active desonide (DESOWEN) 0.05 % cream 1-2 times daily 01/07/20 25 Active fludrocortison e (FLORINEF) 0.1 mg tabletIndicati ons:Orthostati c dizziness Take 1 tablet (0.1 mg total) by mouth 1 (one) time each day. 90 each 3 01/26/20 25 Active oxyCODONE (ROXICODONE) 5 mg immediate release tablet Take 1 tablet (5 mg total) by mouth 3 (three) times a day. Max Daily Amount: 15 mg 86 tablet 02/18/20 25 Active oxyCODONE (ROXICODONE) 5 mg immediate release tablet Take 1 tablet (5 mg total) by mouth 3 (three) times a day. Max Daily Amount: 15 mg 86 tablet 03/17/20 25 Active polyethylene glycol (PEG) 17 gram/dose oral powder Take 17 g by mouth 1 (one) time each day. Take 17 g by mouth daily. 578 g 3 03/16/20 25 Active oxyCODONE (ROXICODONE) 5 mg immediate release tablet Take 1 tablet (5 mg total) by mouth 3 (three) times a day. Max Daily Amount: 15 mg 86 tablet 03/17/20 25 Active ibuprofen (ADVIL,MOTRIN) 600 mg tablet Take 1 tablet (600 mg total) by mouth 2 (two) times a day. 30 tablet 1 03/24/20 25 Active ibuprofen (ADVIL,MOTRIN) 600 mg tablet TAKE 1 TABLET(600 MG) BY MOUTH TWICE DAILY NEEDED FOR MILD PAIN OR PAIN 30 tablet 1 02/03/20 25 025 Discontinued oxyCODONE (ROXICODONE) 5 mg immediate release tablet Take 1 tablet (5 mg total) by mouth 3 (three) times a day. Max Daily Amount: 15 mg 86 tablet 02/18/20 25 025 Discontinued(R eorder) polyethylene glycol (PEG) 17 gram/dose oral powder Take 17 g by mouth 1 (one) time each day. Take 17 g by mouth daily. 578 g 3 02/26/20 25 025 Discontinued(R eorder) Active Problems Problem Noted Date Diagnosed Date Orthostatic hypotension 10/07/2024 Assessment & Plan (01/25/2025 3:33 PM EDT): Patient has history of profound orthostatic hypotension. At his last office visit with Dr. Sofia Contreras was added. Patient started this however he stated that he had the inability to void. This occurred at the same time that he was stopping the Flomax which is more likely the reason why he could not void. We are limited with medical therapies as he was not able to tolerate midodrine due to profound headaches. Today I advised that he restart the Florinef at 0.1 mg daily. He has an appointment with neurology later this year. They may need to consider reducing his Parkinson's medications that this may be a contributing factor to his orthostatic hypotension. Chronic renal insufficiency 06/13/2024 Spinal stenosis of lumbar region 05/16/2024 Assessment & Plan (06/24/2024 1:16 PM EST): Patient is 11 days s/p L4-5 decompression. His postop course is somewhat more complicated due to his progressive supranuclear palsy and Parkinson's, preop he was having difficulty standing for a length of time, his legs felt weak. He has been walking a little bit from room to room around the house, doing stairs, but slowly. He has had less falls since surgery (3 falls since surgery), preop he was having 2- 3 falls a day per caregiver. 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 He has not had any wound drainage, fevers, sweats chills. He is using oxycodone and ibuprofen for pain. Mr. Richardson overall is doing well postop, they will call in about a month if he has persistent symptoms and wants follow-up appointment with Dr. Arrington for second postop visit. I asked him to call with any concerns or questions. All postop questions answered. He did not want any refills on his pain medication, has some left at home and will wait till his next normally scheduled refill with his PCP. History of diverticulitis of colon 04/05/2024 Palpitations 08/28/2022 Overview (04/05/2024): Last Assessment & Plan: Patient complains of palpitations that can last up to 20 minutes occur once or twice a month and are bothering him. Patient be sent for loop recorder the skin the need to turn off his neurostimulator when he has an episode and since the last for 20 minutes he should build to get off in time to record and then turn it back on since there is tremendous crosstalk electronically with this device. We have to turn it off just to get an EKG done Chest pain 08/28/2022 Overview (04/05/2024): Last Assessment & Plan: He complains of chest pain which is very atypical it starts in the right lower quadrant and radiates up into the chest neck and arm I suspect it could be gallbladder but No rule him out with another nuclear stress test using a pharmacologic protocol if that is normal then I would recommend he be sent for an ultrasound of the abdomen to rule out gallstones since the symptoms also can be consistent with cholecystitis Lump in scrotum 03/19/2022 Atrial flutter (CMS/[facility] V24, [facility] V28) 2017 Hypertension 03/23/2018 Hyperlipidemia 03/23/2018 Parkinson's disease (CMS/[facility] V24, CMS/[facility] V28) 0 12/18/2017 Assessment & Plan (09/16/2024 2:26 PM EST): Orders: Ambulatory referral to Cardiology Depression 12/18/2017 Esophageal reflux 07/31/2017 Benign prostatic hyperplasia 05/12/2017 Hemorrhoids, internal 01/27/2017 Obstructive sleep apnea 10/15/2016 Vitamin B12 deficiency 05/06/2016 Abnormal iliac reflex 06/14/2015 Edema 05/05/2014 Vitamin D deficiency 04/12/2014 Chronic constipation 02/23/2014 Dysphagia 01/27/2014 Hiatal hernia 05/12/2013 Insomnia 04/19/2013 Encounters Date Type Department Care Team Description 02/07/2025 2:00 PM EDT Office Visit Internal Medicine - [place] [address] [facility] [address] [place] [address] Ashley Ramirez MD Parkinson's disease, unspecified whether dyskinesia present, unspecified whether manifestations fluctuate ([facility] V24, [facility] V28) (Primary Dx); Primary hypertension; Atrial flutter, unspecified type (CMS/HCC V24, CMS/HCC V28) 01/25/2025 3:10 PM EDT Office Visit [facility] [address] [place] [address] Alicia Pearson NP Orthostatic hypotension (Primary Dx); Orthostatic dizziness 01/16/2025 2:00 PM EDT Office Visit Orthopedic Surgery - [place] [address] [facility] [address] [place] [address] Omar Enrique, DPM Dermatophytosis of nail (Primary Dx); Primary osteoarthritis of both feet; Ingrowing nail from Last 3 Months Immunizations Name Administration Dates Next Due Tdap Tetanus diptheria acell ular pertussis (Boostrix; Adacel) 7yo and older 01/29/2019,09/27/2013 Surgical History Surgery Date Site/Laterality Comments BRAIN SURGERY BRAIN STIMULATOR, battery packs switched in upper chest a few times, [facility]. Neurologist [facility] BACK SURGERY 06/13/2024 L4-5 decompression, Dr. Arrington OTHER SURGICAL HISTORY 07/13/2022 - 07/12/2023 fell, larger hematoma right lateral hip and thigh, drain placed Medical History Medical History Date Comments Abnormal iliac reflex 06/14/2015 Atrial flutter ([facility] V24, [facility] V28) 2017 Benign prostatic hyperplasia 05/12/2017 Chronic constipation 02/23/2014 Depression 12/18/2017 Dysphagia 01/27/2014 Edema 05/05/2014 Esophageal reflux 07/31/2017 Hemorrhoids, internal 01/27/2017 Hiatal hernia 05/12/2013 History of diverticulitis of colon 01/23/2017 Hyperlipidemia 03/23/2018 Hypertension 03/23/2018 Insomnia 04/19/2013 Obstructive sleep apnea 10/15/2016 Parkinson's disease ([facility] V24, [facility] V28) 0 12/18/2017 Vitamin B12 deficiency 05/06/2016 Vitamin D deficiency 04/12/2014 At high risk for injury related to fall Progressive supranuclear pal sy ([facility] V24, [facility] V28) botox injections q4 wks Social History Tobacco Use Types Packs/Day Years Used Date Smoking Tobacco: Never Smokeless Tobacco: Never Alcohol Use Standard Drinks/Week Comments No 0 (1 standard drink = 0.6 oz pur e alcohol) Interpersonal Safety Answer Date Record ed Physical Abuse 06/13/2024 Verbal Abuse 06/13/2024 Sex and Gender Information Value Date Recorded Sex Assigned at Male 06/13/2024 6:19 AM EST Legal Sex Male 7:52 PM EST Gender Identity Male 06/13/2024 6:19 AM EST Sexual Orientation Straight 06/13/2024 6: 19 AM EST Obstetrics History Last Filed Vital Signs Vital Sign Reading Time Taken Comments Blood Pressure 132/84 02/07/2025 2:08 PM EDT Pulse 72 02/07/2025 2:08 PM EDT Temperature 36.4 C (97.5 F) 02/07/2025 2:08 PM EDT Respiratory Rate 18 02/07/2025 2:08 PM EDT Oxygen Saturation 94% 02/07/2025 2:08 PM EDT Inhaled Oxygen Concentration - - Weight 92.5 kg (204 lb) 02/07/2025 2:08 PM EDT Height 177.8 cm (5' 10 ) 02/07/2025 2:08 PM EDT Body Mass Index 29.27 02/07/2025 2:08 PM EDT Plan of Treatment Upcoming Encounters Date Type Department Care Team (Late st Contact Info) Description 04/20/2025 3:15 PM EDT Office Visit Orthopedic Surgery - [place] [address] [phone] Omar Enrique DPM [address] [phone] 05/25/2025 3:00 PM EST Office Visit Gastroenterology - [place] 175 [facility] [address] [phone] Ivy Gusman PA [address] [phone] 07/12/2025 1:15 PM EST Office Visit Internal Medicine - [place] [address] [phone] Ashley Ramirez MD [address] [phone] Health Maintenance Due Date Last Done Comments Zoster Vaccines (1 of 2) 1974 Pneumococcal Vaccine: 50+ Years (1 of 1 - PCV) 2005 COVID-19 Vaccine (3 - Pfizer risk series) 01/15/2021 12/18/2020, 11/27/2020 Hepatitis C Screening 06/21/2022 Social Influencers of Health Screening 06/21/2022 Depression Screening 07/13/2024 04/14/2024 Influenza Vaccine (#1) 2025 Medicare Annual Wellness Visit 04/14/2025 04/14/2024 Falls Risk Assessment 06/14/2025 06/14/2024, 024 Hypertension/CHF/CAD Annual BMP Blood Test 09/21/2025 09/21/2024, 06/13/2024, 04/14/2024, Additional history exists Cholesterol Screening (Lipid Panel) 09/09/2028 09/10/2023, 09/10/2023 DTaP,Tdap,and Td Vaccines (3 - Td or Tdap) 01/29/2029 01/29/2019, 09/27/2013 RSV Immunization Adult Patients (1 - 1-dose 75+ series) 2030 Colorectal Cancer Screening: Colonoscopy 12/22/2033 12/23/2023, 12/23/2023 HIB Vaccines Aged Out No longer eligi ble based on patient's age to complete this topic HPV Vaccines Aged Out No longer eligi ble based on patient's age to complete this topic Hepatitis A Vaccines Aged Out No long er eligible based on patient's age to complete this topic Hepatitis B Vaccines Aged Out No long er eligible based on patient's age to complete this topic IPV Vaccines Aged Out No longer eligi ble based on patient's age to complete this topic MMR Vaccines Aged Out No longer eligi ble based on patient's age to complete this topic Meningococcal ACWY Vaccine Aged Out N o longer eligible based on patient's age to complete this topic Meningococcal B Vaccine Aged Out No l onger eligible based on patient's age to complete this topic RSV Immunization Patients Under 20 months Aged Out No longer eligible based on patient's age to complete this topic Varicella Vaccines Aged Out No longer eligible based on patient's age to complete this topic Medical Devices Implanted Type Area Finishing Area Operator Device Identifier Shelf Expiration Date Model / Serial / Lot Implants Implants Bilateral: Brain Procedures Procedure Name Priority Date/Time Associated Diagnosis Comments BASIC METABOLIC PANEL STAT 09/21/2024 2:14 PM EDT DEPRESSION SCREENING Routine 04/14/2024 COLONOSCOPY Routine 12/23/2023 LIPID PANEL Routine 09/10/2023 from Last 3 Months or Most Recently Relevant to Health Maintenance Results * Basic metabolic panel (09/21/2024 2:14 PM EDT) Sodium 134 133 - 145 mmol/L LAB CHEMISTRY METHOD 09/21/2024 2:53 PM [facility] Potassium 4.3 3.5 - 5.5 mmol/L LAB CHEMISTRY METHOD 09/21/2024 2:53 PM [facility] Chloride 104 96 - 110 mmol/L LAB CHEMISTRY METHOD 09/21/2024 2:53 PM [facility] CO2 27 21 - 32 mmol/L LAB CHEMISTRY METHOD 09/21/2024 2:53 PM [facility] Anion Gap 3 3 - 11 LAB CHEMISTRY METHOD 09/21/2024 2:53 PM [facility] Glucose 88 70 - 100 mg/dL LAB CHEMISTRY METHOD 09/21/2024 2:53 PM [facility] BUN 12 5 - 25 mg/dL LAB CHEMISTRY METHOD 09/21/2024 2:53 PM [facility] Creatinine 1.14 0.70 - 1.30 mg/dL LAB CHEMISTRY METHOD 09/21/2024 2:53 PM [facility] eGFR 70 >=60 mL/min/1. 73m2 LAB CHEMISTRY METHOD 09/21/2024 2:53 PM [facility] Comment:Calculation based on the Chronic Kidney Disease Epidemiology Collaboration (CKD-EPI) equation refit without adjustment for race. BUN/Creatinine Ratio 10.5 LAB CHEMISTRY METHOD 09/21/2024 2:53 PM [facility] Calcium 9.0 8.5 - 10.5 mg/dL LAB CHEMISTRY METHOD 09/21/2024 2:53 PM [facility] Blood Venous blood specimen / Unknown Venipuncture / Unknown 09/21/2024 2:14 PM EDT 09/21/2024 2:23 PM EDT Chance Marshall MD LAB BLOOD ORDERABLES Final Result [facility] ([facility]) [facility] [address] [place] [address], * Depression Screening (04/14/2024) Depression Screening abstracted Historical Provider HEALTH MAINTENANCE Final Result * Colonoscopy (12/23/2023) Colonoscopy no interpretation , abstracted Anatomical Region Laterality Modality Other Historical Provider HEALTH MAINTENANCE Final Result * Lipid panel (09/10/2023) LDL/HDL Ratio 3 0 - 4 Triglycerides 81 0 - 150 mg/dL Cholesterol 152 0 - 200 mg/dL HDL 56 >=40 mg/dL LDL Cholesterol 80 0 - 100 mg/dL Blood Venous blood specimen / Unknown Historical Provider LAB BLOOD ORDERABLES Nani l Result from Last 3 Months or Most Recently Relevant to Health Maintenance Insurance [employer] MED[employer]ARE ADVANTAGE MEDICAID - [place] Advance Directives * Full Code - Default (Latest Code Status on File) Date Activated Date Inactivated Comments 06/13/2024 7:11 AM 06/14/2024 4:56 PM This is orde r is used when code status has not been discussed with the patient, or code status is otherwise unknown/unconfirmed To update the patient's code status, place a code status order. Do not modify or discontinue any currently active code status orders. * Full Code - Default Date Activated Date Inactivated Comments 06/13/2024 7:11 AM 06/13/2024 7:11 AM This is orde r is used when code status has not been discussed with the patient, or code status is otherwise unknown/unconfirmed To update the patient's code status, place a code status order. Do not modify or discontinue any currently active code status orders. Care Teams Stereotyper Relationship Specialty Start Date End Date Ashley Ramirez MD [address] [place] [phone] PCP - General Internal Medicine 05/20/24
--- OUTSIDE RECORDS SUMMARY | 2025-04-05 19:48 | XMS_ITS | Clinical Summary ---
Author Organization [facility] Address [address] [place] [address] Care Team Providers Care Magazine Grinder Loader Name Role Phone Ashley Ramirez Primary Care Provider [phone] Allergies Active Allergy Reactions Criticality Noted Date Comments Ketorolac Unknown 10/19/2017 Pt.s spouse states pt. Is not allergic to Toradol. Tramadol Hives,Unknown High 03/25/2023 TRAMADOL INJECTION PER PT Medications tamsulosin (FLOMAX) 0.4 mg capsule Take 0.8 mg by mouth. 1/2 hour after last meal of the day 3 017 Active peg 3350-sod chlor-potass cit 17 gram/ scoop kit Take 1 scoop by mouth daily. 1 kit 5 018 Active omeprazole (PriLOSEC) 40 mg capsule Take 40 mg by mouth once a day. 0 019 Active senna (SENOKOT) 8.6 mg tablet Take 2 tablets (17.2 mg total) by mouth daily as needed for constipation. 021 Active ketoconazole (NIZORAL) 2% cream Apply topically to the affected area once a day. Face Active cyclobenzaprine (FLEXERIL) 5 mg tablet Take 5 mg by mouth nightly as needed for muscle spasms. Active onabotulinumtoxin A (Botox) 200 unit recon soln 200 Units. injected Into both eyelids Every 6 weeks as directed Active linaCLOtide (LINZESS) 290 mcg Take 290 mcg by mouth once a day. Active ibuprofen (MOTRIN) 600 mg tablet Take 1 tablet (600 mg total) by mouth 2 times a day as needed for pain. Hold for 1 week after surgery 023 Active atorvastatin (LIPITOR) 10 mg tablet Take 1 tablet by mouth once a day. 024 Active dextromethorphan- quinidine (NUEDEXTA) 20-10 mg per capsuleIndication s:Parkinson's disease without dyskinesia or fluctuating manifestations (HCC) Take 1 capsule by mouth every 12 hours. 180 capsule 3 024 2024 Active oxyCODONE IR (ROXICODONE) 5 mg tablet Take 5 mg by mouth 3 times daily. 024 Active temazepam (RESTORIL) 15 mg capsule Take 1 capsule (15 mg total) by mouth at bed time. Discontinue other prescriptions of temazepam 90 capsule 1 025 2025 Active carbidopa-levodop a ER/CR (SINEMET ER/CR) 25-100 mg tablet Take 1 tablet by mouth 2 times a day. 180 tablet 1 025 Active diazePAM (VALIUM) 5 mg tabletIndications :Parkinson's disease without dyskinesia or fluctuating manifestations (HCC) Take 1 tablet (5 mg total) by mouth every 8 hours as needed for muscle spasms. 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 Falls frequently 05/23/2018 Severe episode of recurrent major depressive disorder, without psychotic features 11/30/2017 PD (Parkinson's disease) 10/08/2017 Overview (10/08/2017): Added automatically from request for surgery [id number] Muscular rigidity and spasm, progressive 017 Lumbosacral radiculopathy du e to degenerative joint disease of spine 09/16/2016 Mild sleep apnea 07/25/2016 REM sleep behavior disorder 07/25/2016 Excessive daytime sleepiness 04/17/2016 Weakness 08/24/2015 Head trauma 08/24/2015 Coronary artery disease 03/03/2012 Resolved Problems Problem Noted Date Diagnosed Date Resolved Date End of battery life of deep brain stimulator 1 11/10/2020 Parkinsonism 10/22/2015 11/30/2017 Blepharospasm 03/03/2014 06/16/2018 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 11/30/2017 Encounters Date Type Department Care Team Description 04/05/2025 Refill [facility] [address] [place] [address] Zach Reddy MD Parkinson's disease without dyskinesia or fluctuating manifestations (HCC) 04/04/2025 2:00 PM EDT Office Visit [facility] [address] [place] [address] Zach Reddy MD 02/23/2025 myChart Message [facility] Financial Clearance Department [address] [place] [id number] Mychart, Generic Provider Approval 02/23/2025 Telephone [facility] [address] [place] [address] Katie Villanueva MA 02/22/2025 myChart Message [facility] [address] [place] [address] Anjelica Fraga, BLOCK INSPECTOR Prescription 02/20/2025 Refill [facility] [address] [place] [address] Zach Reddy MD 02/17/2025 Refill [facility] [address] [place] [id number] Destinee Fontanez MD Parkinson's disease without dyskinesia or fluctuating manifestations (HCC) (Primary Dx) 02/17/2025 Refill [facility] [address] [place] [address] Zach Reddy MD 02/16/2025 Telephone [facility] [address] [place] [address] Katie Villanueva MA Alternative - PAC Retail Pharm Denial 02/14/2025 Refill [facility] [address] [place] [address] Zach Reddy MD 02/06/2025 Refill [facility] [address] [place] [address] Destinee Fontanez MD 01/12/2025 Telephone [facility] [address] [place] [address] Zach Reddy MD Brain Stimulator pack is dying from Last 3 Months Immunizations Immunization Administration Dates Next Due Tetanus Toxoid, Reduced Diph theria Toxoid, and Acellular Pertussis Vaccine, Adsorbed 01/29/2019 Family History Medical History Relation Name Comments Heart disease Father Other Father Family History of congestive heart failure Other Mother Family History of cerebrovascular accident Stroke Mother Relation Name Status Comments Father Mother Social History Tobacco Use Types Packs/Day Years Used Date Smoking Tobacco: Never Smokeless Tobacco: Never Tobacco Cessation:Counseling Given: Not Answered Comments:: Alcohol Use Standard Drinks/Week Comments Yes 0 (1 standard drink = 0.6 oz pur e alcohol) rare beer Sex and Gender Information Value Date Recorded Sex Assigned at Male 10/09/2022 1:24 PM EDT Legal Sex Male 1:10 AM EDT Gender Identity Male 10/09/2022 1:24 PM EDT Sexual Orientation Straight 10/09/2022 1: 24 PM EDT Last Filed Vital Signs Vital Sign Reading Time Taken Comments Blood Pressure 138/74 04/04/2025 3:10 PM EDT Pulse 72 04/04/2025 3:10 PM EDT Temperature 36.6 C (97.9 F) 04/04/2025 3:10 PM EDT Respiratory Rate 16 07/08/2024 10:20 AM EST Oxygen Saturation 98% 07/08/2024 10:20 AM EST Inhaled Oxygen Concentration - - Weight 100.7 kg (222 lb) 07/08/2024 10:20 AM EST Height 175.3 cm (5' 9 ) 01/04/2024 10:16 AM EDT Body Mass Index 32.78 01/04/2024 10:16 AM EDT Plan of Treatment Upcoming Encounters Date Type Department Care Team (Late st Contact Info) Description 07/11/2025 11:00 AM EST Office Visit [facility] [address] [place] [address] Hiral Diaz NP [address] [place] [address] 10/02/2025 11:00 AM EDT Office Visit [facility] [address] [place] [address] Hiral Diaz NP [address] [place] [address] 12/07/2025 2:00 PM EDT Procedure visit [facility] [address] [place] [address] Zach Reddy MD [address] [place] [address] Health Maintenance Due Date Last Done Comments Cologuard 1955 Colon Cancer Screening 1955 Colonoscopy 1955 FOBT / Fit Test 1955 Hepatitis C Screening 1955 Sigmoidoscopy 1955 Pneumococcal Vaccine: 50+ Years (1 of 1 - PCV) 2005 Zoster Vaccines (1 of 2) 2005 Alcohol/Substance Use Screening 07/13/2024 Depression Screening and Follow-Up 07/13/2024 Health Care Proxy Review 07/13/2024 Social Drivers of Health Annual Screening 07/13/2024 COVID-19 Vaccine (3 - 2024-2 6 season) 2025 12/18/2020, 11/27/2020 Influenza Vaccine (#1) 2025 DTaP,Tdap,and Td Vaccines (3 - Td or Tdap) 01/29/2029 01/29/2019, 09/27/2013 RSV Vaccine (60+ years old a nd patients) (1 - 1-dose 75+ series) 2030 Hepatitis B Vaccines Aged Out No long er eligible based on patient's age to complete this topic Medical Devices Implanted Type Area Pipe Fitter Apprentice Device Identifier Shelf Expiration Date Model / Serial / Lot Kit Extension For Deep Brain Stimulation - [id number] - [id number] Implanted:Qty: 1 on 11/09/2020 by Colton Renteria MD PhD at [facility] Implant Medtronic 06/02/2024 [id number] / [id number] / Generator Neurostimulator Deep Brain [id number] Activa Pc - [id number] - [id number] Implanted:Qty: 1 on 11/09/2020 by Colton Renteria MD PhD at [facility] Implant Medtronic 10/07/2021 [id number] / [id number] / Battery Neurostimulator Dbs Pc Percept - [id number] - [id number] Implanted:Qty: 1 on 04/07/2023 by Colton Renteria MD PhD at [facility] Implant Right: Chest Medtronic 01/07/2025 [id number] / [id number] / Activa Sc Implanted:Qty: 1 on 10/19/2017 by Colton Renteria MD PhD at [facility] Right: Chest Medtronic 03/09/2019 [id number] / [id number] / Description:neurostim for DB S Explanted Type Area Pipe Fitter Apprentice Device Identifier Shelf Expiration Date Model / Serial / Lot Activa Sc Implanted:Qty: 1 on 10/19/2017 by Colton Renteria MD PhD at [facility] Explanted:Qty: 1 on 11/09/2020 at [facility] Left: Chest Medtronic 12/24/2018 [id number] / [id number] / Description:neurostim for DB S Insurance [facility]IC[facility] Advance Directives Documents on File Type Date Recorded Patient Organizational Effectiveness Director Expl anation Health Care Proxy 03/26/2023 3:47 PM HEALTHCARE PROXY SCANNED IN Advance Directive 03/21/2013 12:00 AM Casey ce Care Directives Advance Directive 03/16/2013 12:00 AM dical Dec Making (Adv.Dir) * Full Code (Latest Code Status on File) Date Activated Date Inactivated Comments 04/07/2023 6:22 AM 04/07/2023 1:12 PM * Full Code Date Activated Date Inactivated Comments 11/09/2020 9:49 AM 11/10/2020 7:46 PM * Full Code Date Activated Date Inactivated Comments 11/09/2020 6:40 AM 11/09/2020 9:49 AM * Presumed Full Code Date Activated Date Inactivated Comments 05/23/2018 1:11 AM 05/26/2018 7:44 PM * Full Code Date Activated Date Inactivated Comments 10/19/2017 8:38 AM 10/19/2017 3:49 PM Care Teams Magazine Grinder Loader Relationship Specialty Start Date End Date Ashley Ramirez [address] [place] [address] PCP - General 01/29/17
--- OUTSIDE RECORDS SUMMARY | 2025-04-05 19:48 | XMS_ITS ---
[facility] Organization [facility] Care Team Organization Name Specialty Phone Email Start Date End Da [facility] Primary Care 05/20/2022 02/29/20 24
--- OUTSIDE RECORDS SUMMARY | 2025-04-05 19:48 | XMS_ITS | Clinical Summary ---
Author Organization [facility] Address [address] [facility] [address] [place] [address] Care Team Providers Care Hadoop Infrastructure Architect Name Role Phone [place] No Pcp, [facility] One Primary Care Provider Un available Social History Tobacco Use Types Packs/Day Years Used Date Smoking Tobacco: Never Assessed Sex and Gender Information Value Date Recorded Sex Assigned at Not on file Legal Sex Male 12:58 PM EDT Gender Identity Not on file Sexual Orientation Not on file Plan of Treatment Not on file Insurance MEDICAID STANDARD MEDICARE PART A AND B Care Teams Hadoop Infrastructure Architect Relationship Specialty Start Date End Date No Pcp, E[facility] One [place] PCP - General Internal Medicine 10/08/23
--- OUTSIDE RECORDS SUMMARY | 2025-04-05 19:48 | XMS_ITS | Encounter Summary ---
Author Organization [facility] Address [address] [place] [address] Care Team Providers Care Crusher Name Role Phone Ashley Ramirez Primary Care Provider [phone] Encounter Details Date Type Department Care Team (Late st Contact Info) Description 04/06/2024 Food Evolution Message [facility] Financial Clearance Department [address] [place] [address] [employer] (SAM), Generic Provider [address] [place] [phone] Approval Social History Tobacco Use Types Packs/Day [...] Description 07/11/2025 11:00 AM EST Office Visit [facility] [address] [place], [place] [phone] Hiral Diaz NP [address] [place] [address] 10/02/2025 11:00 AM EDT Office Visit [facility] [address] [place] [address] Hiral Diaz NP [address] [place] [address] 12/07/2025 2:00 PM EDT Procedure visit [facility] [address] [place] [id number] Zach Reddy MD [address] [place] [phone] documented as of this encounter Visit Diagnoses Not on filedocumented in this encounter Care Teams Crusher Relationship Specialty Start Date End Date Ashley Ramirez [address] [place] [phone] PCP - General 01/29/17 documented as of this encounter
[2025-04-05] MEDS: oxyCODONE HCl Immed Release 5 MG TABLET PO (20:55)
--- NOTE | 2025-04-05 20:56 | PC.NURSE ---
xylocaine w epi 1% 10 mL vial used. 20 mL vial was ordered
[2025-04-05] MEDS: Diphth,Pertus(ACell),Tet Adult 0.5 ML SYRINGE IM (20:57)
[2025-04-05] MEDS: Lidocaine HCl 1%/Epi 1:100,000 20 ML VIAL 10 ML INFILTRATI (20:57)
[2025-04-05 21:54] VITALS: BP 189/88; PULSE 79; RESP 18; TEMP 36.6; O2SAT 95
[2025-04-05 21:57] VITALS: BP 189/88; PULSE 79; RESP 18; TEMP 36.6; O2SAT 95
== END 2025-04-05 22:00 | disposition home or self-care (01) ==
PROVIDERS: Emergency Provider Student in an Organized Health Care Education/Training Program; PCP Internal Medicine
DX: S01.01XA Laceration without foreign body of scalp, initial encounter (principal); R51.9 Headache, unspecified; G20.A1 Parkinson's disease without dyskinesia, without mention of fluctuations; Z91.81 History of falling; W01.190A Fall on same level from slipping, tripping and stumbling with subsequent striking against furniture, initial encounter; Y93.9 Activity, unspecified; Y92.000 Kitchen of unspecified non-institutional (private) residence as the place of occurrence of the external cause; Y99.8 Other external cause status; Z23 Encounter for immunization; Z79.899 Other long term (current) drug therapy
CPT/HCPCS: 12034; 70450; 90471; 90715; 99284; J2004

== ENCOUNTER → 2025-04-05 19:27 | Outpatient (BNV) | payer MEDICARE, MEDICAID, SELFPAY | PROVIDERS: PCP Internal Medicine; Visit Provider Nuclear Medicine | DX: S09.90XA Unspecified injury of head, initial encounter (principal) | CPT/HCPCS: 70450 ==

== ENCOUNTER 2025-04-18 11:15 | Emergency (ER) | payer MEDICARE, MEDICAID, SELFPAY ==
--- OUTSIDE RECORDS SUMMARY | 2025-04-14 15:00 | XMS_ITS | Encounter Summary ---
Author Organization [facility] Address [address] [place] [address] Care Team Providers Care Electronic Warfare Specialist Name Role Phone Ashley Ramirez MD Primary Care Provider [phone] Reason for Referral * Imaging (Routine) - Pending Review Specialty Diagnoses / Procedures Referred By Diaz mejia Referred To Contact Diagnoses TIA (transient ischemic attack) Procedures Vascular US duplex carotid bilateral Ashley Ramirez MD [address] [phone] Phone: tel: fax: [facility] Referral ID Status Reason Start Date Expiration Date V isits Requested Visits Authorized [id number] Pending Review 04/14/2025 04/14/2026 1 1 Reason for Visit * Reason Comments Follow-up Encounter Details Date Type Department Care Team (Latest Contact Info) Description 04/14/2025 3:00 PM EDT Office Visit Internal Medicine - [place] [address] [phone] Ashley Ramirez MD 175 [facility] [address] [place] [address] Vitamin B12 deficiency (Primary Dx); Vitamin D deficiency; Mixed hyperlipidemia; Primary hypertension; Parkinson's disease, unspecified whether dyskinesia present, unspecified whether manifestations fluctuate (CMS/HCC V24, CMS/HCC V28); Atrial flutter, unspecified type (CMS/HCC V24, CMS/HCC V28); Hyperglycemia; TIA (transient ischemic attack) Social History Tobacco Use Types Packs/Day Years Used Date Smoking Tobacco: Never Smokeless Tobacco: Never Alcohol Use Standard Drinks/Week Comments No 0 (1 standard drink = 0.6 oz pur e alcohol) Interpersonal Safety Answer Date Record ed Physical Abuse Unrecognized value 06/13/2024 Verbal Abuse Unrecognized value 06/13/2024 Sex and Gender Information Value Date Recorded Sex Assigned at Male 06/13/2024 6:19 AM EST Legal Sex Male 7:52 PM EST Gender Identity Male 06/13/2024 6:19 AM EST Sexual Orientation Straight 06/13/2024 6: 19 AM EST documented as of this encounter Last Filed Vital Signs Vital Sign Reading Time Taken Comments Blood Pressure 108/56 04/14/2025 3:01 PM EDT Pulse 84 04/14/2025 3:01 PM EDT Temperature 36.4 C (97.5 F) 04/14/2025 3:01 PM EDT Respiratory Rate 20 04/14/2025 3:01 PM EDT Oxygen Saturation 99% 04/14/2025 3:01 PM EDT Inhaled Oxygen Concentration - - Weight 92.5 kg (204 lb) 04/14/2025 3:01 PM EDT Height 177.8 cm (5' 10 ) 04/14/2025 3:01 PM EDT Body Mass Index 29.27 04/14/2025 3:01 PM EDT documented in this encounter Progress Notes * Ashley Ramirez MD - 04/14/2025 3:00 PM EDT CHIEF COMPLAINT: Follow-up IDENTIFIER: Zack Donovan is a 69 y.o. old male. HPI:Neurology Dr. Destinee Fontanez at [facility] Parkinson disease diagnosed 1997 s/p STN BDS with development of PSP phenotype over time-postural instability, dysphagia, speech impairment, refractory blepharospasm. 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 Eyelid surgery in 2019 for blepharospasm, Patient fell recently,was at [facility],got 36 dewayne, Healing well. Feeling dizzy after eating food, Has appt with neurology in [place] for battery change in his device. ROS: GENERAL: No malaise, significant weight loss or fever NECK: No lumps, goiter, pain or significant neck swelling RESPIRATORY: No cough, wheezing or shortness of breath CARDIOVASCULAR: No chest pain, leg swelling or palpitations GI: No abdominal discomfort, blood in stools or black stools PSYCH: No sleep disturbance, mood disorder or recent psychosocial stressors. PAST MEDICAL HISTORY: Patient Active Problem List Diagnosis Date Noted Orthostatic hypotension 10/07/2024 Chronic renal insufficiency 06/13/2024 Spinal stenosis of lumbar region 05/16/2024 History of diverticulitis of colon 04/05/2024 Palpitations 08/28/2022 Chest pain 08/28/2022 Lump in scrotum 03/19/2022 Atrial flutter ([facility] V24, [facility] V28) 03/23/2018 Hypertension 03/23/2018 Hyperlipidemia 03/23/2018 Parkinson's disease ([facility] V24, [facility] V28) 12/18/2017 Depression 12/18/2017 Esophageal reflux 07/31/2017 Benign prostatic hyperplasia 05/12/2017 Hemorrhoids, internal 01/27/2017 Obstructive sleep apnea 10/15/2016 Vitamin B12 deficiency 05/06/2016 Abnormal iliac reflex 06/14/2015 Edema 05/05/2014 Vitamin D deficiency 04/12/2014 Chronic constipation 02/23/2014 Dysphagia 01/27/2014 Hiatal hernia 05/12/2013 Insomnia 04/19/2013 Surgical History[1] SOCIAL HISTORY: Social History Tobacco Use Smoking status: Never Smokeless tobacco: Never Substance Use Topics Alcohol use: No FAMILY HISTORY: Family History[2] No family status information on file. MEDICATIONS DISCONTINUED/REORDERED: There are no discontinued medications. ACTIVE MEDICATIONS: Medications Taking[3] ALLERGIES: Allergies[4] PHYSICAL EXAM: Visit Vitals BP 108/56 (BP Location: Right arm, Patient Position: Sitting, BP Cuff Size: Adult) Pulse 84 Temp 36.4 ??C (97.5 ??F) (Temporal) Resp 20 Ht 1.778 m (70 ) Wt 92.5 kg (204 lb) SpO2 99% BMI 29.27 kg/m?? Smoking Status Never BSA 2.1 m?? APPEARANCE: Alert and in no acute distress NECK: Neck supple, no adenopathy, thyroid symmetric and of normal size HEART: RRR with normal S1 and S2, no murmurs, no gallops, no JVD appreciated LUNG: clear to auscultation ABDOMEN: Bowel sounds normoactive, no bruits, soft, non-tender, without organomegaly or palpable masses SKIN: Skin color, texture, turgor normal. No rashes or lesions. LABS/IMAGING: Appointment on 12/09/2024 Component Date Value Ref Range Status Ferritin 12/09/2024 22 (L) 26 - 388 ng/mL Final Iron 12/09/2024 95 50 - 160 mcg/dL Final TIBC 12/09/2024 281 250 - 450 mcg/dL Final Iron Saturation 12/09/2024 34 20 - 50 % Final WBC 12/09/2024 6.8 4.8 - 10.8 K/mcL Final RBC 12/09/2024 4.40 (L) 4.50 - 5.50 M/mcL Final Hemoglobin 12/09/2024 13.0 (L) 13.5 - 17.5 g/dL Final Hematocrit 12/09/2024 39.5 (L) 42.0 - 54.0 % Final MCV 12/09/2024 89.2 79.0 - 98.0 FL Final MCH 12/09/2024 29.3 27.0 - 32.0 pcg Final MCHC 12/09/2024 32.9 32.0 - 37.0 g/dL Final RDW 12/09/2024 13.2 11.0 - 15.0 % Final Platelets 12/09/2024 236 130 - 400 K/mcL Final MPV 12/09/2024 9.4 7.0 - 11.0 FL Final NRBC 12/09/2024 0.0 <1.0 % Final NRBC Absolute 12/09/2024 0.00 <0.10 K/mcL Final Neutrophils Relative 12/09/2024 58.9 % Final Lymphocytes Relative 12/09/2024 28.5 % Final Monocytes Relative 12/09/2024 9.6 % Final Eosinophils Relative 12/09/2024 1.9 % Final Basophils Relative 12/09/2024 0.7 % Final Immature Granulocytes Relative 12/09/2024 0.4 % Final Neutrophils Absolute 12/09/2024 3.99 1.50 - 7.00 K/mcL Final Lymphocytes Absolute 12/09/2024 1.93 1.00 - 5.00 K/mcL Final Monocytes Absolute 12/09/2024 0.65 0.20 - 1.00 K/mcL Final Eosinophils Absolute 12/09/2024 0.13 0.00 - 0.50 K/mcL Final Basophils Absolute 12/09/2024 0.05 0.00 - 0.20 K/mcL Final Immature Granulocytes Absolute 12/09/2024 0.03 0.00 - 0.03 K/mcL Final Medication and lab orders: Orders Placed This Encounter Procedures Hemoglobin A1c Comprehensive metabolic panel Complete blood count Thyroid stimulating hormone Vitamin B12 Vascular US duplex carotid bilateral Other orders: VAS US DUPLEX CAROTID BILATERAL IMPRESSION: 1. Vitamin B12 deficiency 2. Vitamin D deficiency 3. Mixed hyperlipidemia 4. Primary hypertension 5. Parkinson's disease, unspecified whether dyskinesia present, unspecified whether manifestations fluctuate (CMS/HCC V24, CMS/HCC V28) 6. Atrial flutter, unspecified type (CMS/HCC V24, CMS/HCC V28) 7. Hyperglycemia 8. TIA (transient ischemic attack) PLAN: Will go to [facility] for staple removal on Thursday, Supranuclear palsy Parkinson disease follow-up with neurology in [facility]. Low back pain-patient is on Percocet 5/325 twice daily, patient is requesting oxycodone 5 mg 3 times a day instead of 2 times, because of worsening pain, after getting injection in his back Hyperlipidemia--lipids high, will start atorvastatin 10 mg nightly GERD--continue omeprazole BPH--On finasteride Order A1c,CBC,CMP,LIPID,TSH We will follow-up in 4 months or sooner as needed Ashley Ramirez MD on 04/14/2025 at 8:27 PM EDT [1] Past Surgical History: Procedure Laterality Date BACK SURGERY 06/13/2024 L4-5 decompression, Dr. Arrington BRAIN SURGERY BRAIN STIMULATOR, battery packs switched in upper chest a few times, [facility]. Neurologist [facility] OTHER SURGICAL HISTORY 2022 fell, larger hematoma right lateral hip and thigh, drain placed [2] No family history on file. [3] Outpatient Medications Marked as Taking for the 04/14/25 encounter (Office Visit) with Ashley Ramirez MD Medication Sig Dispense Refill atorvastatin (LIPITOR) 10 mg tablet TAKE 1 TABLET BY MOUTH DAILY 90 tablet 1 carbidopa-levodopa CR (SINEMET CR) 25-100 mg per CR tablet 1 tablet 1 (one) time each day. cyclobenzaprine (FLEXERIL) 5 mg tablet Take 1 tablet (5 mg total) by mouth at bedtime as needed formuscle spasms. desonide (DESOWEN) 0.05 % cream 1-2 times daily dextromethorphan-quiNIDine (NUEDEXTA) 20-10 mg per capsule Take 1 capsule by mouth 1 (one) time each day. diazePAM (VALIUM) 5 mg tablet Take 1 tablet (5 mg total) by mouth if needed. fludrocortisone (FLORINEF) 0.1 mg tablet Take 1 tablet (0.1 mg total) by mouth 1 (one) time each day. 90 each 3 hydrocortisone 2.5 % cream Apply locally twice a day ibuprofen (ADVIL,MOTRIN) 600 mg tablet Take 1 tablet (600 mg total) by mouth 2 (two) times a day. 30 tablet 1 lactulose (CHRONULAC) solution Take 30 mL (20 g total) by mouth 2 (two) times a day. 1800 mL 3 lifitegrast (Xiidra) 5 % dropperette Administer 1 drop into both eyes 3 (three) times a day. linaCLOtide (Linzess) 290 mcg capsule Take 1 capsule (290 mcg total) by mouth 1 (one) time each day. 90 capsule 3 omeprazole (PriLOSEC) [address] capsule Take 1 capsule (40 mg total) by mouth 1 (one) time each day.90 capsule 3 onabotulinumtoxinA (BOTOX) 200 unit injection Inject as directed. Every 6 weeks/as directed oxyCODONE (ROXICODONE) 5 mg immediate release tablet Take 1 tablet (5 mg total) by mouth 3 (three) times a day. Max Daily Amount: 15 mg 86 tablet 0 oxyCODONE (ROXICODONE) 5 mg immediate release tablet Take 1 tablet (5 mg total) by mouth 3 (three) times a day. Max Daily Amount: 15 mg 86 tablet 0 oxyCODONE (ROXICODONE) 5 mg immediate release tablet Take 1 tablet (5 mg total) by mouth 3 (three) times a day. Max Daily Amount: 15 mg 86 tablet 0 polyethylene glycol (PEG) 17 gram/dose oral powder Take 17 g by mouth 1 (one) time each day. Take 17 g by mouth daily. 578 g 3 senna-docusate (PERICOLACE) 8.6-50 mg per tablet Take 1 tablet by mouth 2 (two) times a day. 60 tablet 3 tamsulosin (FLOMAX) 0.4 mg 24 hr capsule Take 1 capsule (0.4 mg total) by mouth 1 (one) time each day. temazepam (RESTORIL) 15 mg capsule Take 1 capsule (15 mg total) by mouth at bedtime. [4] Allergies Allergen Reactions Tramadol Itching documented in this encounter Plan of Treatment Upcoming Encounters Date Type Department Care Team (Late st Contact Info) Description 04/20/2025 3:15 PM EDT Office Visit Orthopedic Surgery - [place] [address] [phone] Omar Enrique DPM [address] [phone] 05/25/2025 3:00 PM EST Office Visit Gastroenterology - [place] [address] [phone] Ivy Gusman PA [address] [phone] 07/12/2025 1:15 PM EST Office Visit Internal Medicine - [place] [address] [phone] Ashley Ramirez MD [address] [phone] Scheduled Orders Name Type Priority Associated Diagnoses Order Schedule Vascular US duplex carotid bilateral Vascular Ultrasound Routine TIA (transient ischemic attack) 1 Occurrences starting 04/14/2025 until 04/14/2026 documented as of this encounter Results * Vitamin B12 (04/14/2025 3:22 PM EDT) [facility] Vitamin B-12 372 250 - 900 pcg/mL LAB CHEMISTRY METHOD 04/14/2025 6:44 PM EDT [facility] Blood Venous blood specimen / Unknown Venipuncture / Unknown 04/14/2025 3:22 PM EDT 04/14/2025 3:22 PM EDT Ashley Ramirez MD LAB BLOOD ORDERABLES Final Res ult Performing Organization Address City/[facility]/ZIP Co de Phone Number [facility] [address] [place] [address], [place] [phone] * Thyroid stimulating hormone (04/14/2025 3:22 PM EDT) [facility] TSH 3.18 0.40 - 4.00 mcIU/mL LAB CHEMISTRY METHOD 04/14/2025 6:48 PM EDT [facility] Blood Venous blood specimen / Unknown Venipuncture / Unknown 04/14/2025 3:22 PM EDT 04/14/2025 3:22 PM EDT us Ashley Ramirez MD LAB BLOOD ORDERABLES Final Res ult [facility] [address] [place] [address], [place] [phone] * (ABNORMAL) Complete blood count (04/14/2025 3:22 PM EDT) [facility] WBC 5.8 4.8 - 10.8 K/[facility] LAB HEMETOLOGY METHOD 04/14/2025 6:10 PM EDT [facility] RBC 4.60 4.50 - 5.50 M/mcL LAB HEMETOLOGY METHOD 04/14/2025 6:10 PM EDT [facility] Hemoglobin 13.4(L) 13.5 - 17.5 g/dL LAB HEMETOLOGY METHOD 04/14/2025 6:10 PM EDT [facility] Hematocrit 40.6(L) 42.0 - 54.0 % LAB HEMETOLOGY METHOD 04/14/2025 6:10 PM EDT [facility] MCV 87.7 79.0 - 98.0 FL LAB HEMETOLOGY METHOD 04/14/2025 6:10 PM EDT [facility] MCH 28.9 27.0 - 32.0 pcg LAB HEMETOLOGY METHOD 04/14/2025 6:10 PM EDT [facility] MCHC 33.0 32.0 - 37.0 g/dL LAB HEMETOLOGY METHOD 04/14/2025 6:10 PM EDT [facility] RDW 12.9 11.0 - 15.0 % LAB HEMETOLOGY METHOD 04/14/2025 6:10 PM EDT [facility] Platelets 249 130 - 400 K/mcL LAB HEM[facility]OLOGY [facility] MPV 9.3 7.0 - 11.0 FL LAB HEMETOLOGY METHOD 04/14/2025 6:10 PM EDT [facility] NRBC 0.0 <1.0 % LAB HEMETOLOGY METHOD 04/14/2025 6:10 PM EDT [facility] NRBC Absolute 0.00 <0.10 K/mcL LAB HEMETOLOGY METHOD 04/14/2025 6:10 PM [facility] Blood Venous blood specimen / Unknown Venipuncture / Unknown 04/14/2025 3:22 PM EDT 04/14/2025 3:22 PM EDT us Ashley Ramirez MD LAB BLOOD ORDERABLES Final Res ult [facility] [address] [place] [address], [place] [phone] * Comprehensive metabolic panel (04/14/2025 3:22 PM EDT) Sodium 135 133 - 145 mmol/L LAB CHEMISTRY METHOD 04/14/2025 6:44 PM EDT [facility] Potassium 4.6 3.5 - 5.5 mmol/L LAB CHEMISTRY METHOD 04/14/2025 6:44 PM [facility] Chloride 104 96 - 110 mmol/L LAB CHEMISTRY METHOD 04/14/2025 6:44 PM [facility] CO2 26 21 - 32 mmol/L LAB CHEMISTRY METHOD 04/14/2025 6:44 PM [facility] Anion Gap 5 3 - 11 LAB CHEMISTRY METHOD 04/14/2025 6:44 PM [facility] Glucose 85 70 - 100 mg/dL LAB CHEMISTRY METHOD 04/14/2025 6:44 PM [facility] BUN 14 5 - 25 mg/dL LAB CHEMISTRY METHOD 04/14/2025 6:44 PM [facility] Creatinine 1.26 0.70 - 1.30 mg/dL LAB CHEMISTRY METHOD 04/14/2025 6:44 PM [facility] eGFR 62 >=60 mL/min/1. 73m2 LAB CHEMISTRY METHOD 04/14/2025 6:44 PM [facility] Comment:Calculation based on the Chronic Kidney Disease Epidemiology Collaboration (CKD-EPI) equation refit without adjustment for race. BUN/Creatinine Ratio 11.1 LAB CHEMISTRY METHOD 04/14/2025 6:44 PM [facility] Calcium 9.0 8.5 - 10.5 mg/dL LAB CHEMISTRY METHOD 04/14/2025 6:44 PM EDT [facility] AST (SGOT) 17 10 - 42 unit/L LAB CHEMISTRY METHOD 04/14/2025 6:44 PM EDT [facility] ALT (SGPT) 16 10 - 60 unit/L LAB CHEMISTRY METHOD 04/14/2025 6:44 PM EDT [facility] Alkaline Phosphatase 95 42 - 121 unit/L LAB CHEMISTRY METHOD 04/14/2025 6:44 PM EDT [facility] Total Protein 7.2 6.0 - 8.0 g/dL LAB CHEMISTRY METHOD 04/14/2025 6:44 PM EDT [facility] Albumin 3.6 3.2 - 5.0 g/dL LAB CHEMISTRY METHOD 04/14/2025 6:44 PM EDT [facility] Total Bilirubin 0.5 0.0 - 1.4 mg/dL LAB CHEMISTRY METHOD 04/14/2025 6:44 PM EDT [facility] Blood Venous blood specimen / Unknown Venipuncture / Unknown 04/14/2025 3:22 PM EDT 04/14/2025 3:22 PM EDT us Ashley Ramirez MD LAB BLOOD ORDERABLES Final Res ult [facility] [address] [place] [address], * Hemoglobin A1c (04/14/2025 3:22 PM EDT) Hemoglobin A1C 5.2 <6.5 % LAB CHEMISTRY METHOD 04/14/2025 8:30 PM EDT [facility] Mean Bld Glu Estim. 103 mg/dL LAB CHEMISTRY METHOD 04/14/2025 8:30 PM EDT [facility] Blood Venous blood specimen / Unknown Venipuncture / Unknown 04/14/2025 3:22 PM EDT 04/14/2025 3:22 PM EDT us Ashley Ramirez MD LAB BLOOD ORDERABLES Final Res ult [facility] [address] [place] [address], documented in this encounter Visit Diagnoses Diagnosis Vitamin B12 deficiency- Primary Other B-complex deficiencies Vitamin D deficiency Mixed hyperlipidemia Primary hypertension Unspecified essential hypertension Parkinson's disease, unspecified whether dyskinesia present, unspecified whether manifestations fluctuate (CMS/HCC V24, [facility] V28) Atrial flutter, unspecified type (CMS/HCC V24, [facility] V28) Hyperglycemia Other abnormal glucose TIA (transient ischemic attack) Unspecified transient cerebral ischemia documented in this encounter Care Teams Electronic Warfare Specialist Relationship Specialty Start Date End Date Ashley Ramirez MD [address] [phone] PCP - General Internal Medicine 05/20/24 documented as of this encounter
[2025-04-18 11:18] VITALS: BP 106/51; PULSE 76; RESP 18; TEMP 37; O2SAT 96; BMI 32.0
--- NOTE | 2025-04-18 11:21 | ED.GENADULT ---
HPI - General Adult General Chief complaint: Recheck/Abnormal Lab/Rx Stated complaint: staple removal Time Seen by Provider: 04/18/25 11:24 Source: patient Mode of arrival: ambulatory Limitations: no limitations History of Present Illness ED Provider: Mahamed Lemus HPI narrative: 69 yold male with pmh of scotty presents to the ED for dewayne removal. Patient had 32 dewayne placed. Patient states no symptoms. Related Data Home Medications ?Medication ?Instructions ?Recorded ?Confirmed carbidopa 25 mg-levodopa 100 mg tab PO 02/06/21 tablet dextromethorphan 20 mg-quinidine 1 cap PO BID 02/06/21 10 mg capsule (Nuedexta) Held on 07/31/22. Instructions: Resume on 08/06/22. diazepam 5 mg tablet 5 mg PO TID PRN 02/06/21 hydrocortisone 2.5 % topical cream appl topical 02/06/21 omeprazole 40 mg capsule,delayed 40 mg PO DAILY 02/06/21 release tamsulosin 0.4 mg capsule 0.4 mg PO DAILY 02/06/21 Held on 07/31/22. Instructions: Resume on 08/06/22. temazepam 15 mg capsule 15 mg PO BEDTIME PRN 02/06/21 Previous Rx's ?Medication ?Instructions ?Recorded nirmatrelvir 300 mg (150 mg See Rx Instructions PO .COMPLEX 07/31/22 x2)-ritonavir 100 mg tablet,dose #30 ea pack (Paxlovid) ondansetron 4 mg disintegrating 4 mg PO Q6H PRN nausea and 07/31/22 tablet vomiting #10 tabs Allergies Allergy/AdvReac Type Severity Reaction Status Date / Time insect venom Allergy unknown Verified 04/18/25 11:20 tramadol Allergy Unknown Verified 04/18/25 11:20 Review of Systems Review of Systems: 32 dewayne placed Yes all other systems are reviewed and are negative PMFSH Past Medical History Medical History Chronic pain syndrome Left rib fracture Parkinson disease, symptomatic Insomnia Hiatal hernia Dysphagia Chronic constipation Abnormal iliac reflex Vitamin B12 deficiency Obstructive sleep apnea Diverticulitis Hemorrhoids, internal Benign prostatic hyperplasia Esophageal reflux Parkinson disease Depression Hypertension Hyperlipidemia Atrial flutter Social History Social History Alcohol intake: never Advance Directives: No Advance Directives Information Provided: No Physical Exam ED Vital Signs: Vital Signs - 24 hr 04/18/25 11:18 Temperature 98.6 F Pulse Rate 76 Respiratory Rate 18 Blood Pressure 106/51 L Pulse Oximetry 96 Oxygen Delivery Method Room Air BMI result Body Mass Index 32.0 Const General: cooperative, healthy appearing, comfortable, no acute distress, well developed, alert, awake and Physically active Orientation/consciousness: patient oriented x3 HENMT Head: Yes normal to inspection, Yes No palpable skull fracture present, Yes normocephalic and Yes atraumatic Head images:  1. 32 dewayne placed and negative for signs of infection. wound healing well Eyes General: appearance normal, both eyes and all related structures Neck Neck: Yes normal visual inspection, Yes full ROM, Yes no lymphadenopathy, Yes no meningeal signs, Yes trachea midline, Yes supple, No anterior neck swelling and No tender Chest Chest palpation & inspection: normal inspection of the chest and normal palpation of entire chest wall Resp Effort & Inspection: normal respiratory effort and able to speak in complete sentences Auscultation: clear to auscultation bilaterally Cardio Jugular venous distension: no JVD Heart sounds: S1 normal heart sound present and S2 normal heart sound present GI Inspection: Yes normal to inspection Palpation (GI): Soft to palpation, not firm, nontender, no guarding and not rigid General: Yes no CVA tenderness Back/Spine/Pelvis Back: no CVA tenderness and No Cook-Juan sign present Skin General skin exam: no rashes or lesions noted, elasticity normal and turgor normal Neuro General: patient oriented x3, gait normal, tone normal, moves all extremities, Normal light touch and pain sensation, no meningeal signs, no focal motor deficits and CN's II-XI intact bilaterally Extrem General: Yes normal to inspection, Yes full ROM and Yes capillary refill normal Psych Appearance: grossly normal, well kempt and not disheveled Medical Decision Making Medical Decision Making MDM Narrative: 69 yold male presents to the ED for 32 dewayne removal. Patient had dewayne placed over 10 days aog. Patient denies any headache, nausea, vomiting, pus discharge, foul odor, fever or chills. Staple is cleaned and healing. Area cleaned with saline and alcohol swabs. Thirty-two dewayne removed. Patient explained worrisome signs informed return to the ED immediately Differential Diagnosis Differential Diagnoses: The differential diagnosis associated with the presentation includes (Staple removal) Admission/Observation Consideration of admission/observation: Escalation of care including admission/observation considered Independent Historian Clinical information obtained from an independent historian. History obtained from or confirmed by: Other (patient) Prescription Management I considered prescription management with: Pain Medication Discharge Plan Discharge Clinical Impression: Removal of dewayne Patient Disposition: Home, Self-Care Instructions: Stitches Removal (ED) Additional Instructions: Your dewayne were removed. Your wound is healing well. Recommend follow up with primary care provider. Return to the ED immediately for any swelling, redness, bluish black discoloration, pus discharge, foul odor, fever, chills, or any other concerning symptoms. Prescriptions: No Action Paxlovid 300 mg (150 mg x 2)-100 mg tablets,dose pack See Rx Instructions .ROUTE .COMPLEX Qty: 30 0RF Rx Instructions: take TWO 150 mg tablets of nirmatrelvir with ONE 100 mg tablet of ritonavir twice daily for 5 days ondansetron 4 mg tablet,disintegrating 4 mg PO Q6H PRN (Reason: nausea and vomiting) Qty: 10 0RF Referrals: Ashley Ramirez MD [Primary Care Provider, Internal Medicine] - 2 days Referral Note: Staple removal Clinical Impression: Removal of dewayne Interventions: ED Discharge Assessment Last Done: 04/18/25 11:53 Discharge Date/Time: 04/18/25 11:54 Print Language: Turkish
[2025-04-18 11:53] VITALS: BP 106/51; PULSE 76; RESP 18; TEMP 37; O2SAT 96
--- OUTSIDE RECORDS SUMMARY | 2025-04-18 14:32 | XMS_ITS | Encounter Summary ---
Author Organization [facility] Address [address] [place] [address] Care Team Providers Care Technical Testing Engineer Name Role Phone Ashley Ramirez Primary Care Provider [phone] Encounter Details Date Type Department Care Team (Late st Contact Info) Description 02/23/2025 Fidbacks Message [facility] Financial Clearance Department [address] [place] [address] [email or web address], Generic Provider [address] [place] [address] Approval Social History Tobacco Use Types Packs/Day [...] Care Team (Late st Contact Info) Description 04/27/2025 1:45 PM EDT Follow-Up [facility] [address] [place] [address] Colton Renteria MD PhD [address] [place] [address] 07/11/2025 11:00 AM EST Office Visit [facility] [address] [place] [address] Hiral Diaz NP [address] [place] [address] 10/02/2025 11:00 AM EDT Office Visit [facility] [address] [place] [address] Hiral Diaz NP [address] [place] [address] 12/07/2025 2:00 PM EDT Procedure visit [facility] [address] [place] [address] Zach Reddy MD [address] [place] [address] documented as of this encounter Visit Diagnoses Not on filedocumented in this encounter Care Teams Technical Testing Engineer Relationship Specialty Start Date End Date Ashley Ramirez [address] [place] [address] PCP - General 01/29/17 documented as of this encounter
--- OUTSIDE RECORDS SUMMARY | 2025-04-18 14:32 | XMS_ITS | Clinical Summary ---
Author Organization [facility] Address [address] [place] [address] Care Team Providers Care Lapper Name Role Phone Ashley Ramirez Primary Care Provider [phone] Allergies Active Allergy Reactions Criticality Noted Date Comments Ketorolac Unknown 10/19/2017 Pt.s spouse states pt. Is not allergic to Toradol. Medications tamsulosin (FLOMAX) 0.4 mg capsule Take [...] s:Parkinson's disease without dyskinesia or fluctuating manifestations Take 1 capsule by mouth every 12 [...] :Parkinson's disease without dyskinesia or fluctuating manifestations Take 1 tablet (5 mg total) by mouth every 8 hours as needed for muscle spasms. 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 Falls frequently 05/23/2018 Severe episode of recurrent major depressive disorder, without psychotic features 11/30/2017 PD (Parkinson's disease) 10/08/2017 Overview (10/08/2017): Added automatically from request for surgery [id number] Muscular rigidity and spasm, progressive 017 Lumbosacral [...] Type Department Care Team Description 04/05/2025 Refill [facility] [address] [place] [address] Zach Reddy MD Parkinson's disease without dyskinesia or fluctuating manifestations (HCC) 04/04/2025 2:00 PM EDT Office Visit [facility] [address] [place] [address] Zach Reddy MD Primary parkinsonism (HCC) (Primary Dx); Parkinson's disease without dyskinesia or fluctuating manifestations (HCC); Dysarthria; Dysphagia, oropharyngeal phase 02/23/2025 myChart Message [facility] Financial Clearance Department [address] [place] [address] Mychart, Generic Provider Approval 02/23/2025 Telephone [facility] [address] [place] [address] Katie Villanueva MA 02/22/2025 myChart Message [facility] [address] [place] [address] Anjelica Fraga, STREET LIGHT CLEANER Prescription 02/20/2025 Refill [facility] [address] [place] [address] Zach Reddy MD 02/17/2025 Refill [facility] [address] [place] [address] Destinee Fontanez MD Parkinson's disease without dyskinesia or fluctuating manifestations (HCC) (Primary Dx) 02/17/2025 Refill [facility] [address] [place] [address] Zach Reddy MD 02/16/2025 Telephone [facility] [address] [place] [address] Katie Villanueva MA Alternative - PAC Retail Pharm Denial 02/14/2025 Refill [facility] [address] [place] [address] Zach Reddy MD 02/06/2025 Refill [facility] [address] [place] [address] Destinee Fontanez MD from Last 3 Months Immunizations Immunization Administration [...] Info) Description 04/27/2025 1:45 PM EDT Follow-Up [facility] [address] [place] [address] Colton Renteria MD PhD [address] [place] [address] 07/11/2025 11:00 AM EST Office Visit [facility] [address] [place] [address] Hiral Diaz NP [address] [place] [address] 10/02/2025 11:00 AM EDT Office Visit [facility] [address] [place] [address] Hiral Diaz NP [address] [place] [address] 12/07/2025 2:00 PM EDT Procedure visit [facility] [address] [place] [address] Zach Reddy MD [address] [place] [address] Health Maintenance Due Date Last Done Comments [...] this topic Medical Devices Implanted Type Area Finish Repairer Device Identifier Shelf Expiration Date Model / Serial / Lot Kit Extension For Deep Brain Stimulation - [id number] - [id number] Implanted:Qty: 1 on 11/09/2020 by Colton Renteria MD PhD at [facility] Implant Medtronic 06/02/2024 [id number] / [id number] / Generator Neurostimulator Deep Brain [id number] Activa Pc - [id number] - [id number] Implanted:Qty: 1 on 11/09/2020 by Colton Renteria MD PhD at [facility] Implant Medtronic 10/07/2021 [id number] / [id number] / Battery Neurostimulator Dbs Pc Percept - [id number] - [id number] Implanted:Qty: 1 on 04/07/2023 by Colton Renteria MD PhD at [facility] Implant Right: Chest Medtronic 01/07/2025 [id number] / [id number] / Activa Sc Implanted:Qty: 1 on 10/19/2017 by Colton Renteria MD PhD at [facility] Right: Chest Medtronic 03/09/2019 [id number] / [id number] / Description:neurostim for DB S Explanted Type Area Finish Repairer Device Identifier Shelf Expiration Date Model / Serial / Lot Activa Sc Implanted:Qty: 1 on 10/19/2017 by Colton Renteria MD PhD at [facility] Explanted:Qty: 1 on 11/09/2020 at [facility] Left: Chest Medtronic 12/24/2018 [id number] / [id number] / Description:neurostim for DB S Insurance [facility] MEDICARE [facility] Advance Directives Documents on File Type Date Recorded Patient Bullet Lubricant Mixer Expl anation Health Care Proxy 03/26/2023 3:47 PM HEALTHCARE PROXY SCANNED IN Advance Directive 03/21/2013 12:00 AM Advan ce Care Directives Advance Directive 03/16/2013 12:00 AM yaya Patterson dical Dec Making (Adv.Dir) * Full Code [...] 8:38 AM 10/19/2017 3:49 PM Care Teams Lapper Relationship Specialty Start Date End Date Ashley Ramirez [address] [place] [address] PCP - General 01/29/17
--- OUTSIDE RECORDS SUMMARY | 2025-04-18 14:33 | XMS_ITS | Clinical Summary ---
Author Organization [address] [facility] Address [address] [place] [address] Phone Care Team Providers Care Chiropractic Practice Manager Name Role Phone Ashley Ramirez MD Primary Care Provider [phone] Allergies Active Allergy Reactions Criticality Noted Date [...] day. 30 tablet 1 03/24/20 25 Active oxyCODONE (ROXICODONE) 5 mg immediate release tablet Take 1 tablet (5 mg total) by mouth 3 (three) times a day. Max Daily Amount: 15 mg 86 tablet 04/13/20 25 Active ibuprofen (ADVIL,MOTRIN) 600 mg tablet TAKE 1 TABLET(600 MG) BY MOUTH TWICE DAILY NEEDED FOR MILD PAIN OR PAIN 30 tablet 1 02/03/20 25 025 Discontinued oxyCODONE (ROXICODONE) 5 mg immediate release tablet Take 1 tablet (5 mg total) by mouth 3 (three) times a day. Max Daily Amount: 15 mg 86 tablet 02/18/20 25 025 Discontinued(R eojohner) Active Problems Problem Noted Date Diagnosed Date [...] cholecystitis Lump in scrotum 03/19/2022 Atrial flutter (CMS/HCC V24, CMS/HCC V28) 2017 Hypertension 03/23/2018 Hyperlipidemia 03/23/2018 Parkinson's disease (CMS/HCC V24, CMS/HCC V28) 0 12/18/2017 Assessment & Plan (09/16/2024 2:26 PM EST): Orders: Ambulatory referral to Cardiology Depression 12/18/2017 Esophageal reflux 07/31/2017 Benign prostatic hyperplasia 05/12/2017 Hemorrhoids, internal 01/27/2017 Obstructive sleep apnea 10/15/2016 Vitamin B12 deficiency 05/06/2016 Abnormal iliac reflex 06/14/2015 Edema 05/05/2014 Vitamin D deficiency 04/12/2014 Chronic constipation 02/23/2014 Dysphagia 01/27/2014 Hiatal hernia 05/12/2013 Insomnia 04/19/2013 Encounters Date Type Department Care Team Description 04/16/2025 Results Follow-Up Internal Medicine [address] [phone] Ashley Ramirez MD 04/14/2025 3:00 PM EDT Office Visit Internal Medicine [address] [phone] Ashley Ramirez MD Vitamin B12 deficiency (Primary Dx); Vitamin D deficiency; Mixed hyperlipidemia; Primary hypertension; Parkinson's disease, unspecified whether dyskinesia present, unspecified whether manifestations fluctuate (CMS/HCC V24, CMS/[facility] V28); Atrial flutter, unspecified type (CMS/HCC V24, CMS/HCC V28); Hyperglycemia; TIA (transient ischemic attack) 04/10/2025 Telephone Internal Medicine [address] [address] Ashley Ramirez MD 02/07/2025 2:00 PM EDT Office Visit Internal Medicine [address] [address] Ashley Ramirez MD Parkinson's disease, unspecified whether dyskinesia present, unspecified whether manifestations fluctuate (CMS/HCC V24, CMS/HCC V28) (Primary Dx); Primary hypertension; Atrial flutter, unspecified type ([facility] V24, [facility] V28) 01/25/2025 3:10 PM EDT Office Visit [facility] [address] [place] [address] Alicia Paerson, STUART Orthostatic hypotension (Primary Dx); Orthostatic dizziness 01/16/2025 2:00 PM EDT Office Visit Orthopedic Surgery - [place] [address] [facility] [address] [place] [address] Omar Enrique, DPM Dermatophytosis of nail (Primary Dx); Primary osteoarthritis of both feet; Ingrowing nail from Last 3 Months Immunizations Immunization Administration Dates Next Due Tdap Tetanus diptheria acell ular pertussis (Boostrix; Adacel) 7yo and older 01/29/2019,09/27/2013 Surgical History Surgery Date Site/Laterality Comments BRAIN SURGERY BRAIN STIMULATOR, battery packs switched in upper chest a few times, [facility]. Neurologist [facility] BACK SURGERY 06/13/2024 L4-5 decompression, Dr. Arrington OTHER SURGICAL HISTORY 07/13/2022 - 07/12/2023 fell, larger hematoma right lateral hip and thigh, drain placed Medical History Medical History Date Comments Abnormal iliac reflex 06/14/2015 Atrial flutter ([facility] V24, [facility] V28) 2017 Benign prostatic hyperplasia 05/12/2017 Chronic constipation 02/23/2014 Depression 12/18/2017 Dysphagia 01/27/2014 Edema 05/05/2014 Esophageal reflux 07/31/2017 Hemorrhoids, internal 01/27/2017 Hiatal hernia 05/12/2013 History of diverticulitis of colon 01/23/2017 Hyperlipidemia 03/23/2018 Hypertension 03/23/2018 Insomnia 04/19/2013 Obstructive sleep apnea 10/15/2016 Parkinson's disease ([facility] V24, [facility] V28) 0 12/18/2017 Vitamin B12 deficiency 05/06/2016 Vitamin D deficiency 04/12/2014 At high risk for injury related to fall Progressive supranuclear pal sy ([facility] V24, [facility] V28) botox injections q4 wks Social History [...] Mass Index 29.27 04/14/2025 3:01 PM EDT Plan of Treatment Upcoming Encounters Date Type Department Care Team (Late st Contact Info) Description 04/20/2025 3:15 PM EDT Office Visit Orthopedic Surgery [facility] [address] 175 [facility] 250 [place] [phone] Omar Enrqiue DPM 175 [facility] 250 [place] [phone] 05/25/2025 3:00 PM EST Office Visit Gastroenterology [facility] 175 [facility] 175 [facility] 200 [place] [phone] Ivy Gusman PA 175 [facility] 200 [place] [address] 07/12/2025 1:15 PM EST Office Visit Internal Medicine - [place] 175 [facility] [address] [place] [address] Ashley Ramirez MD 175 [facility] 200 [place] [address] Health Maintenance Due Date Last Done Comments [...] 06/14/2024, 024 Hypertension/CHF/CAD Annual BMP Blood Test 04/14/2026 04/14/2025, 09/21/2024, 06/13/2024, Additional history exists Cholesterol Screening (Lipid Panel) 09/09/2028 09/10/2023, 09/10/2023 RSV Immunization Adult Patients (1 - 1-dose 75+ series) 2030 Colorectal Cancer Screening: Colonoscopy 12/22/2033 12/23/2023, 12/23/2023 DTaP,Tdap,and Td Vaccines (4 - Td or Tdap) 04/05/2035 04/05/2025, 01/29/2019, 09/27/2013 Abdominal Aortic Aneurysm (AAA) Screen Discontinued 01/27/2024 HIB Vaccines Aged Out No longer eligi [...] this topic Medical Devices Implanted Type Area Vp Design Device Identifier Shelf Expiration Date Model / Serial / Lot Implants Implants Bilateral: Brain Procedures Procedure Name Priority Date/Time Associated Diagnosis Comments HEMOGLOBIN A1C Routine 04/14/2025 3:22 PM EDT Vitamin B12 deficiency Vitamin D deficiency Mixed hyperlipidemia Primary hypertension Parkinson's disease, unspecified whether dyskinesia present, unspecified whether manifestations fluctuate (CMS/HCC V24, CMS/HCC V28) Atrial flutter, unspecified type (CMS/HCC V24, CMS/HCC V28) Hyperglycemia COMPREHENSIVE METABOLIC PANEL Routine 04/14/2025 3:22 PM EDT Vitamin B12 deficiency Vitamin D deficiency Mixed hyperlipidemia Primary hypertension Parkinson's disease, unspecified whether dyskinesia present, unspecified whether manifestations fluctuate (CMS/HCC V24, CMS/HCC V28) Atrial flutter, unspecified type (CMS/HCC V24, CMS/HCC V28) Hyperglycemia COMPLETE BLOOD COUNT Routine 04/14/2025 3:22 PM EDT Vitamin B12 deficiency Vitamin D deficiency Mixed hyperlipidemia Primary hypertension Parkinson's disease, unspecified whether dyskinesia present, unspecified whether manifestations fluctuate (CMS/HCC V24, CMS/HCC V28) Atrial flutter, unspecified type (CMS/HCC V24, CMS/HCC V28) Hyperglycemia THYROID STIMULATING HORMONE Routine 04/14/2025 3:22 PM EDT Vitamin B12 deficiency Vitamin D deficiency Mixed hyperlipidemia Primary hypertension Parkinson's disease, unspecified whether dyskinesia present, unspecified whether manifestations fluctuate (CMS/HCC V24, CMS/HCC V28) Atrial flutter, unspecified type (CMS/HCC V24, CMS/HCC V28) Hyperglycemia VITAMIN B12 Routine 04/14/2025 3:22 PM EDT Vitamin B12 deficiency Vitamin D deficiency Mixed hyperlipidemia Primary hypertension Parkinson's disease, unspecified whether dyskinesia present, unspecified whether manifestations fluctuate (CMS/HCC V24, CMS/HCC V28) Atrial flutter, unspecified type (CMS/HCC V24, CMS/HCC V28) Hyperglycemia DEPRESSION SCREENING Routine 04/14/2024 COLONOSCOPY Routine 12/23/2023 LIPID PANEL Routine 09/10/2023 from Last 3 Months or Most Recently Relevant to Health Maintenance Results * (ABNORMAL) Complete blood count (04/14/2025 3:22 PM EDT) [facility] Signature WBC 5.8 4.8 - 10.8 K/mcL LAB HEMETOLOGY METHOD 04/14/2025 6:10 PM EDT [facility] RBC 4.60 4.50 - 5.50 M/mcL LAB HEMETOLOGY METHOD 04/14/2025 6:10 PM EDT [facility] Hemoglobin 13.4(L) 13.5 - 17.5 g/dL LAB HEMETOLOGY METHOD 04/14/2025 6:10 PM EDT [facility] Hematocrit 40.6(L) 42.0 - 54.0 % LAB HEMETOLOGY METHOD 04/14/2025 6:10 PM EDT [facility] MCV 87.7 79.0 - 98.0 FL LAB HEMETOLOGY METHOD 04/14/2025 6:10 PM EDT [facility] MCH 28.9 27.0 - 32.0 pcg LAB HEMETOLOGY METHOD 04/14/2025 6:10 PM EDT [facility] MCHC 33.0 32.0 - 37.0 g/dL LAB HEMETOLOGY METHOD 04/14/2025 6:10 PM EDT [facility] RDW 12.9 11.0 - 15.0 % LAB HEMETOLOGY METHOD 04/14/2025 6:10 PM EDT [facility] Platelets 249 130 - 400 K/mcL LAB HEMETOLOGY METHOD 04/14/2025 6:10 PM EDT [facility] MPV 9.3 7.0 - 11.0 FL LAB HEMETOLOGY METHOD 04/14/2025 6:10 PM EDT [facility] NRBC 0.0 <1.0 % LAB HEMETOLOGY METHOD 04/14/2025 6:10 PM EDT [facility] NRBC Absolute 0.00 <0.10 K/mcL LAB HEMETOLOGY METHOD 04/14/2025 6:10 PM EDT [facility] Blood Venous blood specimen / Unknown Venipuncture / Unknown 04/14/2025 3:22 PM EDT 04/14/2025 3:22 PM EDT Ashley Ramirez MD LAB BLOOD ORDERABLES Final Res ult Performing Organization Address City/[facility]/ZIP Co de Phone Number [facility] [address] [place] [address], [place] [phone] * Thyroid stimulating hormone (04/14/2025 3:22 PM EDT) TSH 3.18 0.40 - 4.00 mcIU/mL LAB CHEMISTRY METHOD 04/14/2025 6:48 PM EDT [facility] Blood Venous blood specimen / Unknown Venipuncture / Unknown 04/14/2025 3:22 PM EDT 04/14/2025 3:22 PM EDT us Ashley Ramirez MD LAB BLOOD ORDERABLES Final Res ult [facility] [address] [place] [address], [place] [phone] * Hemoglobin A1c (04/14/2025 3:22 PM EDT) [facility] Hemoglobin A1C 5.2 <6.5 % LAB CHEMISTRY METHOD 04/14/2025 8:30 PM EDT [facility] Mean Bld Glu Estim. 103 mg/dL LAB CHEMISTRY METHOD 04/14/2025 8:30 PM EDT [facility] Blood Venous blood specimen / Unknown Venipuncture / Unknown 04/14/2025 3:22 PM EDT 04/14/2025 3:22 PM EDT Ashley Ramirez MD LAB BLOOD ORDERABLES Final Res ult Performing Organization Address City/[facility]/ZIP Co de Phone Number [facility] [address] [place] [address], [place] [phone] * Vitamin B12 (04/14/2025 3:22 PM EDT) Pathologist [facility] Vitamin B-12 372 250 - 900 pcg/mL LAB CHEMISTRY METHOD 04/14/2025 6:44 PM EDT [facility] Blood Venous blood specimen / Unknown Venipuncture / Unknown 04/14/2025 3:22 PM EDT 04/14/2025 3:22 PM EDT us Ashley Ramirez MD LAB BLOOD ORDERABLES Final Res ult [facility] [address] [place] [address], [place] [phone] * Comprehensive metabolic panel (04/14/2025 3:22 PM EDT) [facility] Sodium 135 133 - 145 mmol/L LAB CHEMISTRY METHOD 04/14/2025 6:44 PM EDT [facility] Potassium 4.6 3.5 - 5.5 mmol/L LAB CHEMISTRY METHOD 04/14/2025 6:44 PM EDT [facility] Chloride 104 96 - 110 mmol/L LAB CHEMISTRY METHOD 04/14/2025 6:44 PM [facility] CO2 26 21 - 32 mmol/L LAB CHEMISTRY METHOD 04/14/2025 6:44 PM [facility] Anion Gap 5 3 - 11 LAB CHEMISTRY METHOD 04/14/2025 6:44 PM [facility] Glucose 85 70 - 100 mg/dL LAB CHEMISTRY METHOD 04/14/2025 6:44 PM [facility] BUN 14 5 - 25 mg/dL LAB CHEMISTRY METHOD 04/14/2025 6:44 PM [facility] Creatinine 1.26 0.70 - 1.30 mg/dL LAB CHEMISTRY METHOD 04/14/2025 6:44 PM [facility] eGFR 62 >=60 mL/min/1. 73m2 LAB CHEMISTRY METHOD 04/14/2025 6:44 PM [facility] Comment:Calculation based on the Chronic Kidney Disease Epidemiology Collaboration (CKD-EPI) equation refit without adjustment for race. BUN/Creatinine Ratio 11.1 LAB CHEMISTRY METHOD 04/14/2025 6:44 PM [facility] Calcium 9.0 8.5 - 10.5 mg/dL LAB CHEMISTRY METHOD 04/14/2025 6:44 PM [facility] AST (SGOT) 17 10 - 42 unit/L LAB CHEMISTRY METHOD 04/14/2025 6:44 PM [facility] ALT (SGPT) 16 10 - 60 unit/L LAB CHEMISTRY METHOD 04/14/2025 6:44 PM [facility] Alkaline Phosphatase 95 42 - 121 unit/L LAB CHEMISTRY METHOD 04/14/2025 6:44 PM [facility] Total Protein 7.2 6.0 - 8.0 g/dL LAB CHEMISTRY METHOD 04/14/2025 6:44 PM [facility] Albumin 3.6 3.2 - 5.0 g/dL LAB CHEMISTRY METHOD 04/14/2025 6:44 PM EDT [facility] Total Bilirubin 0.5 0.0 - 1.4 mg/dL LAB CHEMISTRY METHOD 04/14/2025 6:44 PM EDT [facility] Blood Venous blood specimen / Unknown Venipuncture / Unknown 04/14/2025 3:22 PM EDT 04/14/2025 3:22 PM EDT Ashley Ramirez MD LAB BLOOD ORDERABLES Final Res ult [facility] [address] [place] [address], * Depression Screening (04/14/2024) Pathologist [facility] Depression Screening abstracted Historical Provider HEALTH MAINTENANCE Final Result * Colonoscopy (12/23/2023) Pathologist [facility] Colonoscopy no interpretation , abstracted Anatomical Region Laterality Modality Other Historical Provider HEALTH MAINTENANCE Final Result * Lipid panel (09/10/2023) [facility] LDL/HDL Ratio 3 0 - 4 Triglycerides [...] currently active code status orders. Care Teams Chiropractic Practice Manager Relationship Specialty Start Date End Date Ashley Ramirez MD 175 [facility] 200 [place] [address] PCP - General Internal Medicine 05/20/24
--- OUTSIDE RECORDS SUMMARY | 2025-04-18 14:33 | XMS_ITS | Encounter Summary ---
Author Organization [facility] Address [address] [place] [address] Care Team Providers Care Tower Crane Operator Name Role Phone Ashley Ramirez MD Primary Care Provider [phone] Encounter Details Date Type Department Care Team (Late st Contact Info) Description 04/16/2025 Results Follow-Up Internal Medicine - [place] 175 [facility] [address] [place] [phone] Ashley Ramirez MD 175 [facility] 200 [place] [phone] Social History Tobacco Use Types Packs/Day Years [...] AM EST documented as of this encounter Plan of Treatment Upcoming Encounters Date Type Department Care Team (Late st Contact Info) Description 04/20/2025 3:15 PM EDT Office Visit Orthopedic Surgery - [place] [address] 175 [facility] 250 [place] [phone] Omar Enrique DPParvin [address] [phone] 05/25/2025 3:00 PM EST Office Visit Gastroenterology - [place] 175 [facility] 175 [facility] 200 [place] [phone] Ivy Gusman PA 175 [facility] 200 [place] [address] 07/12/2025 1:15 PM EST Office Visit Internal Medicine - [place] [address] [phone] Ashley Ramirez MD [address] [phone] documented as of this encounter Visit Diagnoses Not on filedocumented in this encounter Care Teams Tower Crane Operator Relationship Specialty Start Date End Date Ashley Ramirez MD [address] [phone] PCP - General Internal Medicine 05/20/24 documented as of this encounter
--- OUTSIDE RECORDS SUMMARY | 2025-04-18 14:33 | XMS_ITS | Encounter Summary ---
Author Organization [facility] Address [address] [place] [address] Care Team Providers Care Vehicle Refinisher Name Role Phone Ashley Ramirez Primary Care Provider [phone] Encounter Details Date Type Department Care Team (Late st Contact Info) Description 04/06/2024 InSightec Message [facility] Financial Clearance Department [address] [place] [address] [email or web address], Generic Provider [address] [place] [phone] Approval Social History Tobacco Use Types Packs/Day [...] Info) Description 04/27/2025 1:45 PM EDT Follow-Up [facility] [address] [place] [address] Colton Renteria MD PhD [address] [place] [address] 07/11/2025 11:00 AM EST Office Visit [facility] [address] [place] [address] Hiral Diaz NP [address] [place] [address] 10/02/2025 11:00 AM EDT Office Visit [facility] [address] [place] [address] 19171 Hiral Diaz NP [address] [place] [address] 12/07/2025 2:00 PM EDT Procedure visit [facility] [address] [place] [address] Zach Reddy MD [address] [place] [address] documented as of this encounter Visit Diagnoses Not on filedocumented in this encounter Care Teams Vehicle Refinisher Relationship Specialty Start Date End Date Ashley Ramirez [address] [place] [phone] PCP - General 01/29/17 documented as of this encounter
--- OUTSIDE RECORDS SUMMARY | 2025-04-18 14:33 | XMS_ITS | Clinical Summary ---
Author Organization [facility] Address [address] [facility] [address] [place] [address] Care Team Providers Care Swimming Coach Name Role Phone No Pcp, Emy One Primary Care Provider [...] MEDICARE PART A AND B Care Teams Swimming Coach Relationship Specialty Start Date End Date [place] No Pcp, Emy One [place] PCP - General Internal Medicine 10/08/23
== END 2025-04-18 11:54 | disposition home or self-care (01) ==
PROVIDERS: Emergency Provider Emergency Medicine; PCP Internal Medicine
DX: Z48.02 Encounter for removal of sutures (principal); Z79.899 Other long term (current) drug therapy
CPT/HCPCS: 99282

== ENCOUNTER 2025-04-30 22:00 | Emergency (ER) | payer MEDICARE, MEDICAID, SELFPAY ==
--- NOTE | ~2025-04-30 | XR_ITS ---
CLINICAL HISTORY: sob 1 view chest x-ray Comparison: CR/ID/SR - XR CHEST 2 VIEWS - 07/31/22 15:24 EST Findings: No consolidation or effusion. Normal size heart. No acute fracture. Left and right anterior single lead neurostimulator devices extending cephalad into the right soft tissue neck. IMPRESSION: 1. No acute findings. This document has been electronically signed by: Doug Morel MD on 04/30/2025 23:23:47
[2025-04-30 22:04] VITALS: BP 148/89; PULSE 70; RESP 20; TEMP 36.6; O2SAT 94; BMI 28.0
--- OUTSIDE RECORDS SUMMARY | 2025-04-30 22:29 | XMS_ITS | Encounter Summary ---
Author Organization [facility] Address [address] [place] [address] Care Team Providers Care Ending Machine Operator Name Role Phone Ashley Ramirez Gracie Primary Care Provider [phone] Encounter Details Date Type Department Care Team (Late st Contact Info) Description 02/23/2025 Myreks Message [facility] Financial Clearance Department [address] [place] [address] [employer], Generic Provider [address] [place] [phone] Approval Social History Tobacco Use Types Packs/Day [...] Care Team (Late st Contact Info) Description 05/15/2025 2:00 PM EST Follow-Up [facility] [address] [place] [address] Colton Renteria MD PhD [address] [place] [address] 07/11/2025 11:00 AM EST Office Visit [facility] [address] [place] [address] Hiral Diaz NP [address] [place] [address] 10/02/2025 11:00 AM EDT Office Visit [facility] [address] [place] [address] Hiral Diaz NP [address] [place] [address] 12/07/2025 2:00 PM EDT Procedure visit [facility] [address] [place] [address] Zach Reddy MD [address] [place] [address] documented as of this encounter Visit Diagnoses Not on filedocumented in this encounter Care Teams Ending Machine Operator Relationship Specialty Start Date End Date Ashley Ramirez [address] [place] [phone] PCP - General 01/29/17 documented as of this encounter
--- OUTSIDE RECORDS SUMMARY | 2025-04-30 22:29 | XMS_ITS | Clinical Summary ---
Author Organization [facility] Address [address] [facility] [address] [place] [address] Care Team Providers Care Metal Furnace Operator Name Role Phone [place] No Pcp, Emy One Primary Care Provider [...] MEDICARE PART A AND B Care Teams Metal Furnace Operator Relationship Specialty Start Date End Date No Pcp, Emy One [place] PCP - General Internal Medicine 10/08/23
--- OUTSIDE RECORDS SUMMARY | 2025-04-30 22:29 | XMS_ITS | Clinical Summary ---
Author Organization [facility] Address [address] [place] [address] Care Team Providers Care Blindmaker Name Role Phone Ashley Ramirez Primary Care Provider [phone] Allergies Active Allergy Reactions Criticality Noted Date [...] (10/08/2017): Added automatically from request for surgery [id number] Muscular rigidity and spasm, progressive 017 Lumbosacral [...] Type Department Care Team Description 04/05/2025 Refill [facility] [address] [place] [address] Zach Reddy MD Parkinson's disease without dyskinesia or fluctuating manifestations (HCC) 04/04/2025 2:00 PM EDT Office Visit [facility] [address] [place] [address] Zach Reddy MD Primary parkinsonism (HCC) (Primary Dx); Parkinson's disease without dyskinesia or fluctuating manifestations (HCC); Dysarthria; Dysphagia, oropharyngeal phase 02/23/2025 myChart Message [facility] Financial Clearance Department [address] [place] [phone] Mychart, Generic Provider Approval 02/23/2025 Telephone [facility] [address] [place] [address] Katie Villanueva MA 02/22/2025 myChart Message [facility] Renal Transplant [address] [place] [address] Anjelica Fraga, FLAT SORTING MACHINE CLERK Prescription 02/20/2025 Refill [facility] [address] [place] [address] Zach Reddy MD 02/17/2025 Refill [facility] [address] [place] [address] Destinee Fontanez MD Parkinson's disease without dyskinesia or fluctuating manifestations (HCC) (Primary Dx) 02/17/2025 Refill [facility] [address] [place] [address] Zach Reddy MD 02/16/2025 Telephone [facility] [address] [place] [address] Katie Villanueva MA Alternative - PAC Retail Pharm Denial 02/14/2025 Refill [facility] [address] [place] [address] Zach Reddy MD 02/06/2025 Refill [facility] [address] [place] [address] Destinee Fontanez MD from Last 3 Months [...] Info) Description 05/15/2025 2:00 PM EST Follow-Up [facility] [address] [place] [address] Colton Renteria MD PhD [address] [place] [address] 07/11/2025 11:00 AM EST Office Visit [facility] [address] [place] [address] Hiral Diaz NP [address] [place] [address] 10/02/2025 11:00 AM EDT Office Visit [facility] [address] [place] [address] Hiral Diaz NP [address] [place] [address] 12/07/2025 2:00 PM EDT Procedure visit [facility] [address] [place] [address] Zach Reddy MD [address] [place] [address] Health Maintenance Due Date Last Done Comments [...] this topic Medical Devices Implanted Type Area Heel Slicker Device Identifier Shelf Expiration Date Model / Serial / Lot Kit Extension For Deep Brain Stimulation - [id number] - [id number] Implanted:Qty: 1 on 11/09/2020 by Colton Renteria MD PhD at [facility] Implant Medtronic 06/02/2024 [id number] / [id number] / Generator Neurostimulator Deep Brain [id number] Activa Pc - [id number] - [id number] Implanted:Qty: 1 on 11/09/2020 by Colton Renteria MD PhD at [facility] Implant Medtronic 10/07/2021 [id number] / [id number] / Battery Neurostimulator Dbs Pc Percept - [id number] - [id number] Implanted:Qty: 1 on 04/07/2023 by Colton Renteria MD PhD at [facility] Implant Right: Chest Medtronic 01/07/2025 [id number] / [id number] / Activa Sc Implanted:Qty: 1 on 10/19/2017 by Colton Renteria MD PhD at [facility] Right: Chest Medtronic 03/09/2019 [id number] / [id number] / Description:neurostim for DB S Explanted Type Area Heel Slicker Device Identifier Shelf Expiration Date Model / Serial / Lot Activa Sc Implanted:Qty: 1 on 10/19/2017 by Colton Renteria MD PhD at [facility] Explanted:Qty: 1 on 11/09/2020 at [facility] Left: Chest Medtronic 12/24/2018 [id number] / [id number] / Description:neurostim for DB S Insurance [facility]IC[facility] Advance Directives Documents on File Type Date Recorded Patient Roping Tender Expl anation Health Care Proxy 03/26/2023 3:47 PM HEALTHCARE PROXY SCANNED IN Advance Directive 03/21/2013 12:00 AM Advan ce Care Directives Advance Directive 03/16/2013 12:00 AM yaya Patterson [email or web address] Dec Making (Adv.Dir) * Full Code (Latest [...] 8:38 AM 10/19/2017 3:49 PM Care Teams Blindmaker Relationship Specialty Start Date End Date Ashley Ramirez [address] [place] [address] PCP - General 01/29/17
--- OUTSIDE RECORDS SUMMARY | 2025-04-30 22:29 | XMS_ITS | Encounter Summary ---
Author Organization [facility] Address [address] [place] [address] Care Team Providers Care Wall Covering Contractor Name Role Phone Ashley Ramirez Primary Care Provider [phone] Encounter Details Date Type Department Care Team (Late st Contact Info) Description 04/06/2024 Outline App Message [facility] Financial Clearance Department [address] [place] [address] [employer] Florally, Generic Provider [address] [place] [phone] Approval Social History Tobacco Use Types Packs/Day [...] Info) Description 05/15/2025 2:00 PM EST Follow-Up [facility] [address] [place] [address] Colton Renteria MD PhD [address] [place] [address] 07/11/2025 11:00 AM EST Office Visit [facility] [address] [place] [address] Hiral Diaz NP [address] [place] [address] 10/02/2025 11:00 AM EDT Office Visit [facility] [address] [place] [address] Hiral Diaz NP [address] [place] [address] 12/07/2025 2:00 PM EDT Procedure visit [facility] [address] [place] [address] 314[address] Zach Reddy MD [address] [place] [address] 900[address] documented as of this encounter Visit Diagnoses Not on filedocumented in this encounter Care Teams Wall Covering Contractor Relationship Specialty Start Date End Date Ashley Ramirez [address] [place] [address] PCP - General 01/29/17 documented as of this encounter
--- NOTE | 2025-04-30 22:38 | ECG_ITS ---
Test Reason : SOB Blood Pressure : */* mmHG Vent. Rate : 61 BPM Atrial Rate : * BPM P-R Int : * ms QRS Dur : 180 ms QT Int : 560 ms P-R-T Axes : * -14 126 degrees QTcB Int : 563 ms Poor data quality Undetermined rhythm No previous ECGs available Please repeat EKG Referred By: Generic ED Physician Electronically Signed By: JANE MAZA MD
[2025-04-30 22:41] VITALS: O2SAT 94
--- NOTE | 2025-04-30 22:49 | ED_ITS ---
HPI - General Adult General Chief complaint: Upper Respiratory Symptoms Stated complaint: sick since , coughing/fever Time Seen by Provider: 04/30/25 22:49 Source: patient Mode of arrival: ambulatory Limitations: no limitations History of Present Illness ED Provider: Dr. Duncan HPI narrative: 69-year-old male history of Parkinson's disease, chronic pain on oxycodone, BPH presented hospital today for evaluation of coughing. Patient has been coughing since . Has been worsening. Therefore patient presents to the ER for further evaluation. The patient does endorse some shortness of breath. He complains of productive cough. Does endorse some subjective fever as well. Related Data Home Medications ?Medication ?Instructions ?Recorded ?Confirmed carbidopa 25 mg-levodopa 100 mg tab PO 02/06/21 tablet dextromethorphan 20 mg-quinidine 1 cap PO BID 02/06/21 10 mg capsule (Nuedexta) Held on 07/31/22. Instructions: Resume on 08/06/22. diazepam 5 mg tablet 5 mg PO TID PRN 02/06/21 hydrocortisone 2.5 % topical cream appl topical omeprazole 40 mg capsule,delayed 40 mg PO DAILY release tamsulosin 0.4 mg capsule 0.4 mg PO DAILY 02/06/21 Held on 07/31/22. Instructions: Resume on 08/06/22. temazepam 15 mg capsule 15 mg PO BEDTIME PRN 1 Previous Rx's ?Medication ?Instructions ?Recorded nirmatrelvir 300 mg (150 mg See Rx Instructions PO .CO MPLEX 07/31/22 x2)-ritonavir 100 mg tablet,dose #30 ea pack (Paxlovid) ondansetron 4 mg disintegrating 4 mg PO Q6H PRN nausea and 07/31/22 tablet vomiting #10 tabs cefdinir 300 mg capsule 300 mg PO BID 7 days #14 cap s 05/01/25 codeine 10 mg-guaifenesin 100 mg/5 5 ml PO Q6H PRN cou gh #118 mL 05/01/25 mL oral liquid (G Tussin AC) doxycycline monohydrate 100 mg 100 mg PO BID 7 days #1 4 caps 05/01/25 capsule prednisone 50 mg tablet 50 mg PO DAILY 5 days #5 tab s 05/01/25 Allergies Allergy/AdvReac Type Severity Reaction Status Date / Time insect venom Allergy unknown Verified 04/30/25 22:05 tramadol Allergy Unknown Verified 04/30/25 22:05 Review of Systems 2 Review of Systems: Pertinent review of systems as mentioned in HPI. All other system otherwise negative. [facility] Past Medical History [facility] Narrative: Medical history as mentioned in HPI Medical History Chronic pain syndrome Left rib fracture Parkinson disease, symptomatic Insomnia Hiatal hernia Dysphagia Chronic constipation Abnormal iliac reflex Vitamin B12 deficiency Obstructive sleep apnea Diverticulitis Hemorrhoids, internal Benign prostatic hyperplasia Esophageal reflux Parkinson disease Depression Hypertension Hyperlipidemia Atrial flutter Social History Social History Alcohol intake: never Smoked in Last 30 Days: No Use of substances other than those prescribed or required for medical reasons: No Advance Directives: No Advance Directives Information Provided: Yes Physical Exam ED Exam Exam: General: Appears diaphoretic Head: Normacephalic, atraumatic ENT: oral mucosa moist, neck supple, no tracheal deviation Cardiovascular: regular rate, regular rhythm, no murmurs, rubbing, gallops Respiratory: Diminished lung sounds bilaterally Gastrointestinal: Soft, non distended, non tender, non guarding Extremities: No limb pain or swelling, no calf tenderness Neurological: Awake and alert, no facial droop noted Skin: Warm and dry Psychiatric: Appropriate mood and thoughts Vital Signs: Vital Signs - 24 hr 04/30/25 22:04 04/30/25 22:41 04/30/25 23:26 Temperature 97.9 F Pulse Rate 70 87 Respiratory Rate 20 18 Blood Pressure 148/89 H Pulse Oximetry 94 94 Oxygen Delivery Method Room Air Room Air 05/01/25 01:12 05/01/25 03:45 05/01/25 03:55 Temperature 97.5 F Pulse Rate 73 83 81 Respiratory Rate 18 20 20 Blood Pressure 118/73 194/85 H Pulse Oximetry 92 96 Oxygen Delivery Method Room Air Room Air BMI result Body Mass Index 28.0 Medications Administered Generic Name Dose Route Start Last Admin Trade Name Freq PRN Reason Stop Dose Admin Guaifenesin/Codeine Phosphate 5 ml 05/01/25 01:27 05/01/25 01:53 Guaifen/Codeine Sf 200/20/10ml 10 Ml Liquid PO 5 ml Q4H PRN Administration Cough Discontinued Medications Generic Name Dose Route Start Last Admin Trade Name Chachoq PRN Reason Stop Dose Admin Acetaminophen 975 mg 04/30/25 23:09 04/30/25 23:23 Acetaminophen 325 Mg Tablet PO 04/30/25 23:10 975 mg ONCE ONE Administration Azithromycin 500 mg 04/30/25 23:08 04/30/25 23:23 Azithromycin 500 Mg Tablet PO 04/30/25 23:09 500 mg ONCE ONE Administration Carbidopa/Levodopa 1 tab 05/01/25 04:56 05/01/25 04:59 Carbidopa/Levodopa 25/100 Tablet PO 05/01/25 04:57 1 tab ONCE ONE Administration Albuterol Sulfate 5 mg/ 0 mg 04/30/25 23:23 04/30/25 23:25 Albuterol/Ipratropium 3 ml INHALE 04/30/25 23:24 7.5 each ONCE ONE Administration Albuterol Sulfate 5 mg/ 0 mg 05/01/25 03:55 05/01/25 03:57 Albuterol/Ipratropium 3 ml INHALE 05/01/25 03:56 7.5 each ONCE ONE Administration Diazepam 5 mg 05/01/25 03:47 05/01/25 03:55 Diazepam 10 Mg/2 Ml Cartridge IVPUSH 05/01/25 03:48 5 mg STAT STA Administration Guaifenesin/Codeine Phosphate 5 ml 04/30/25 23:09 04/30/25 23:24 Guaifen/Codeine Sf 200/20/10ml 10 Ml Liquid PO 04/30/25 23:10 5 ml ONCE ONE Administration Sodium Chloride 1,000 mls @ 999 mls/hr 05/01/25 01:00 05/01/25 02:10 Ns IV 05/01/25 02:00 Infused .Q1H1M HARMAN Infusion Ketorolac Tromethamine 15 mg 05/01/25 01:00 05/01/25 01:09 Ketorolac Tromethamine 15 Mg/Ml Vial IVPUSH 05/01/25 01:01 15 mg ONCE ONE Administration Prednisone 40 mg 04/30/25 23:08 04/30/25 23:23 Prednisone 20 Mg Tablet PO 04/30/25 23:09 40 mg ONCE ONE Administration Medical Decision Making Medical Decision Making MDM Narrative: 69-year-old male history of Parkinson's disease chronic pain presented hospital today for evaluation of shortness of breath and productive coughing since . We will plan to give patient a breathing treatment here prednisone dose will be given Z-Vipul will be given to the patient as well. We will obtain a chest x-ray basic lab work will be obtained as well. Patient does appear to be slightly diaphoretic I suspect patient may have a fever. X-ray did not show any signs of pneumonia. Patient stated that he still feels tired and dehydrated. We will plan to give patient some IV fluid. IV Toradol will be given the patient as well. We will plan to reassess patient afterward. Patient will be signed out to oncoming provider. 6:07 AM 05/01/2025 (Dr. Taylor Tovar, D.O.) oxygenation improved after bronchodilators. Patient reports improved coughing after Valium. I suspect an atypical versus aspiration pneumonia given his history of Parkinson's disease. Covered with doxycycline and cefdinir. Given a course of prednisone and Robitussin AC for home. Discussed importance of follow up as well as strict return precautions. Using shared decision making, plan for discharge home to follow-up with primary care and/or specialist.? Patient understands and agrees with plan for discharge.? Discharged home in stable condition. Differential Diagnosis Differential Diagnoses: The differential diagnosis associated with the presentation includes Bronchitis, pneumonia, COVID, flu Admission/Observation Consideration of admission/observation: Escalation of care including admission/observation considered Lab Data [facility] Lab Attestation statement: I reviewed the patient's lab results. 04/30/25 23:11 04/30/25 23:11 Labs: Lab Results 04/30/25 05/01/25 Range/Units 23:11 03:49 WBC 7.8 (4.8-10.8) X10*3/uL RBC 3.96 L (4.60-5.80) X10*6/uL Hgb 11.7 L (14.0-18.0) g/dl Hct 33.9 L (42.0-52.0) % MCV 85.6 (80.0-98.0) fL MCH 29.5 (27.0-33.0) pg MCHC 34.5 (31.0-36.0) g/dl RDW 12.6 (11.0-16.0) % Plt Count 228 (160-400) X10*3/uL MPV 8.3 L (9.4-12.4) fL Immature Gran % (Auto) 1.2 H (0.0-0.4) % Neut % (Auto) 59.2 (45-73) % Lymph % (Auto) 29.9 (20-40) % [place] % (Auto) 7.3 (2-11) % Eos % (Auto) 1.5 (0-4) % Baso % (Auto) 0.9 (0-2) % Lymph # (Auto) 2.3 (1.2-4.9) X10*3/uL [place] # (Auto) 0.6 (0.1-1.2) X10*3/uL Eos # (Auto) 0.1 (0.0-0.4) X10*3/uL Baso # (Auto) 0.1 (0.0-0.2) X10*3/uL Abs Immat Gran (auto) 0.09 H (0.00-0.03) X10*3/uL Absolute Neuts (auto) 4.6 (2.0-8.3) x10*3/uL Absolute Nucleated RBC 0.000 (0.0-0.012) X10*3/uL Nucleated RBC % (auto) 0.0 (0.0-0.2) /100WBC D-Dimer High Sensitivty 164 NG/ML Sodium 138 (135-145) mmol/L Potassium 3.6 (3.3-5.1) mmol/L Chloride 107 (96-108) mmol/L Carbon Dioxide 22 (22-29) mmol/L Anion Gap 13 (12-20) BUN 18 H (9-16) mg/dL Creatinine 1.18 (0.5-1.4) mg/dL Estim Creat Clear Calc 66.1 Estimated GFR > 60 Random Glucose 102 (60-115) mg/dL Calcium 8.2 L D (8.4-10.2) mg/dL Total Bilirubin 0.4 (0.0-1.0) mg/dL AST 18 (5-37) U/L ALT 6 (0-40) U/L Alkaline Phosphatase 85 (39-117) U/L Troponin I High Sens 3.7 (<3.5-35.0) ng/L Total Protein 6.7 (6.5-8.0) g/dL Albumin 3.6 (3.5-5.0) g/dL COVID-19 (SLY) Negative (Negative) COVID-19 Clin Com See Note Influenza Type A (NARA) Negative (Negative) Influenza Type B (NARA) Negative (Negative) Influenza A & B Note See Note Independent Interpretation I performed an independent interpretation of an: Plain X-Ray Radiology Impression Discussion of test interpretation with radiology: I have reviewed the radiologist's reading. Discharge Plan Discharge Clinical Impression: Parkinson disease, symptomatic, Bronchitis, Atypical pneumonia Patient Disposition: Home, Self-Care Instructions: Community Acquired Pneumonia (ED) Additional Instructions: Take your antibiotic as prescribed until the course is completed. Do not stop this medication early if you start to feel better. Use codeine cough syrup every 6 hours as needed for severe coughing. This medication can make you drowsy. Try to rest if you have to take it. Return to the emergency department with any new or worsening symptoms including: Worsening shortness of breath, chest pain, fevers greater than 100?, passing out, any new symptom that concerns you. Call 911 with any medical emergency. Prescriptions: New doxycycline monohydrate 100 mg capsule 100 mg PO BID 7 Days Qty: 14 0RF prednisone 50 mg tablet 50 mg PO DAILY 5 Days Qty: 5 0RF codeine-guaifenesin [G Tussin AC] 10-100 mg/5 mL liquid 5 ml PO Q6H PRN (Reason: cough) Qty: 118 0RF cefdinir 300 mg capsule 300 mg PO BID 7 Days Qty: 14 0RF No Action Paxlovid 300 mg (150 mg x 2)-100 mg tablets,dose pack See Rx Instructions .ROUTE .COMPLEX Qty: 30 0RF Rx Instructions: take TWO 150 mg tablets of nirmatrelvir with ONE 100 mg tablet of ritonavir twice daily for 5 days ondansetron 4 mg tablet,disintegrating 4 mg PO Q6H PRN (Reason: nausea and vomiting) Qty: 10 0RF Print Language: Panamanian
[2025-04-30 23:16] LABS: MANUAL DIFF FLAG NO
[2025-04-30 23:17] LABS: Hematocrit 33.9 % (42.0-52.0); Hemoglobin 11.7 g/dl (14.0-18.0); Imm Gran Abs Auto 0.09 X10*3/uL (0.00-0.03); Imm Gran Pct Auto 1.2 % (0.0-0.4); Lymphocytes Absolute Auto 2.3 X10*3/uL (1.2-4.9); Mean Corpuscular HGB Conc 34.5 g/dl (31.0-36.0); Mean Corpuscular Hemoglobin 29.5 pg (27.0-33.0); Mean Corpuscular Volume 85.6 fL (80.0-98.0); NRBC Abs Auto 0.000 X10*3/uL (0.0-0.012); NRBC Pct Auto 0.0 /100WBC (0.0-0.2); Platelet Count 228 X10*3/uL (160-400); Red Blood Count 3.96 X10*6/uL (4.60-5.80); White Blood Count 7.8 X10*3/uL (4.8-10.8)
[2025-04-30] MEDS: guaiFEN/Codeine SF 200/20/10ML 10 ML LIQUID 5 ML PO (23:24)
[2025-04-30] MEDS: Albuterol Sulfate 5 MG, Albuterol/Iprat 2.5/0.5MG 3 ML 3 ML INHALE (23:25)
[2025-04-30 23:26] VITALS: PULSE 87; RESP 18; O2SAT 96
[2025-04-30 23:30] LABS: Alanine Aminotransferase 6 U/L (0-40); Albumin Level 3.6 g/dL (3.5-5.0); Alkaline Phosphatase 85 U/L (39-117); Anion Gap 13 (12-20); Aspartate Amino Transferase 18 U/L (5-37); Blood Urea Nitrogen 18 mg/dL (9-16); Calcium 8.2 mg/dL (8.4-10.2); Carbon Dioxide 22 mmol/L (22-29); Chloride 107 mmol/L (96-108); Creatinine Clr Calc Pharmacy 66.1; Estimated Glomerular Filt Rate > 60; Potassium 3.6 mmol/L (3.3-5.1); Sodium 138 mmol/L (135-145); Total Protein 6.7 g/dL (6.5-8.0)
[2025-04-30 23:33] LABS: COVID-19 Test Negative (Negative); IDNOW Serial# 55D5AD1C; IDNOW Serial# 58CA691E; Influenza B2 Negative (Negative)
[2025-05-01 01:12] VITALS: BP 118/73; PULSE 73; RESP 18; TEMP 36.4; O2SAT 92
[2025-05-01] MEDS: guaiFEN/Codeine SF 200/20/10ML 10 ML LIQUID 5 ML PO (01:53)
[2025-05-01 03:45] VITALS: BP 194/85; PULSE 83; RESP 20; O2SAT 96
[2025-05-01 03:55] VITALS: PULSE 81; RESP 20; O2SAT 93
[2025-05-01] MEDS: diazePAM 10 MG/2 ML CARTRIDGE 5 MG IVPUSH (03:55)
[2025-05-01] MEDS: Albuterol Sulfate 5 MG, Albuterol/Iprat 2.5/0.5MG 3 ML 3 ML INHALE (03:57)
[2025-05-01 04:04] LABS: D Dimer High Sensitivity 164 NG/ML
[2025-05-01 04:14] LABS: Troponin-I High Sensitivity 3.7 ng/L (<3.5-35.0)
[2025-05-01 06:00] VITALS: BP 106/49; PULSE 99; RESP 20; TEMP 36.4; O2SAT 94
[2025-05-01 06:13] VITALS: BP 106/49; PULSE 99; RESP 20; TEMP 36.4; O2SAT 94
== END 2025-05-01 06:15 | disposition home or self-care (01) ==
PROVIDERS: Student in an Organized Health Care Education/Training Program; Emergency Provider Emergency Medicine; PCP Internal Medicine
DX: G20.A1 Parkinson's disease without dyskinesia, without mention of fluctuations (principal); J40 Bronchitis, not specified as acute or chronic; J18.9 Pneumonia, unspecified organism; Z03.818 Encounter for observation for suspected exposure to other biological agents ruled out; R06.02 Shortness of breath; R50.9 Fever, unspecified; R05.9 Cough, unspecified; E78.5 Hyperlipidemia, unspecified; I10 Essential (primary) hypertension
CPT/HCPCS: 36415; 71045; 80053; 84484; 85025; 85379; 87502; 87635; 93005; 94640; 96361; 96374; 96375; 99284; 99285; J1885; J3360

== ENCOUNTER → 2025-04-30 22:36 | Outpatient (BNV) | payer MEDICARE, MEDICAID, SELFPAY | PROVIDERS: Emergency Provider Student in an Organized Health Care Education/Training Program; PCP Internal Medicine; Visit Provider Radiology Diagnostic Radiology | DX: R06.02 Shortness of breath (principal) | CPT/HCPCS: 71045 ==

== ENCOUNTER → 2025-04-30 22:38 | Outpatient (BNV) | payer MEDICARE, MEDICAID, SELFPAY | PROVIDERS: Emergency Provider Emergency Medicine; PCP Internal Medicine; Visit Provider Internal Medicine Cardiovascular Disease | DX: R06.02 Shortness of breath (principal) | CPT/HCPCS: 93010 ==

== ENCOUNTER 2025-05-08 09:02 | Emergency (ER) | payer MEDICARE, MEDICAID, SELFPAY ==
--- NOTE | ~2025-05-08 | XR_ITS ---
EXAMINATION: XR CHEST CLINICAL INFORMATION: pain COMPARISON: X-ray 05/01/2025 TECHNIQUE: Frontal view of the chest was obtained. FINDINGS: Normal heart size. Low lung volumes. No consolidation or effusion. No pneumothorax. No acute osseous findings. Left and right neurostimulator device is extending cephalad into the right soft tissue neck. Overlying monitoring leads XR/XR chest 1V IMPRESSION: No acute findings Electronically signed by: Ruben Sahu MD 05/08/2025 10:41 AM EDT
--- NOTE | ~2025-05-08 | US_ITS ---
EXAMINATION: US TRIPLEX LOWER EXTREMITY, LEFT CLINICAL INFORMATION: Pain and edema, left lower extremity. COMPARISON: None available. TECHNIQUE: Color-flow triplex imaging with spectral analysis and compression Doppler were performed on the left lower extremity. FINDINGS: Respiratory variation, normal compression and augmented flow are demonstrated in the interrogated left common femoral vein, superficial femoral vein, profunda femoral vein, popliteal vein and midcalf peroneal and posterior tibial venous segments . There is no Beaver's cyst. US/US venous duplex LE IMPRESSION: No acute deep venous thrombosis interrogated veins, left lower extremity. Negative for DVT. Electronically signed by: Kody Ramirez MD 05/08/2025 12:13 PM EDT
--- NOTE | 2025-05-08 09:04 | ECG_ITS ---
Test Reason : CHEST PAIN Blood Pressure : */* mmHG Vent. Rate : 61 BPM Atrial Rate : 61 BPM P-R Int : 220 ms QRS Dur : 180 ms QT Int : 508 ms P-R-T Axes : 25 -83 184 degrees QTcB Int : 511 ms Artifact in tracing Not suitable for interpretation When compared with ECG of 30-Apr-2025 22:47, Due to poor quality, cannot compare Referred By: Nila Busby Electronically Signed By: HEIDI PALMER
[2025-05-08 09:11] VITALS: BP 120/56; BP 127/74; PULSE 60; PULSE 61; RESP 16; TEMP 36.6; O2SAT 94; O2SAT 95; BMI 28.0
--- NOTE | 2025-05-08 09:33 | PC.NURSE ---
18g IV access to right AC. Labs drawn and sent for analysis, results pending. EKG obtained, has neurostimulator in place, bilateral batteries at clavicles. 7 out of 10 chest pain at this time, began upon waking up around 6am today. Was given aspirin & nitroglycerin by EMS prior to arrival. Xray obtained. Dr. Busby to evaluate the patient. Care ongoing by this RN. Call day within reach, vitals stable at this time.
[2025-05-08 09:35] LABS: MANUAL DIFF FLAG NO
[2025-05-08 09:38] LABS: Hematocrit 36.1 % (42.0-52.0); Hemoglobin 12.1 g/dl (14.0-18.0); Imm Gran Abs Auto 0.07 X10*3/uL (0.00-0.03); Imm Gran Pct Auto 0.9 % (0.0-0.4); Lymphocytes Absolute Auto 1.7 X10*3/uL (1.2-4.9); Mean Corpuscular HGB Conc 33.5 g/dl (31.0-36.0); Mean Corpuscular Hemoglobin 30.0 pg (27.0-33.0); Mean Corpuscular Volume 89.6 fL (80.0-98.0); NRBC Abs Auto 0.000 X10*3/uL (0.0-0.012); NRBC Pct Auto 0.0 /100WBC (0.0-0.2); Platelet Count 244 X10*3/uL (160-400); Red Blood Count 4.03 X10*6/uL (4.60-5.80); White Blood Count 7.7 X10*3/uL (4.8-10.8)
[2025-05-08 09:44] LABS: INTERNATIONAL NORM RATIO 1.1 (0.9-1.1); Prothrombin Time 12.1 SEC (10.9-12.4)
[2025-05-08 09:55] LABS: Alanine Aminotransferase 6 U/L (0-40); Albumin Level 3.4 g/dL (3.5-5.0); Alkaline Phosphatase 61 U/L (39-117); Anion Gap 8 (12-20); Aspartate Amino Transferase 16 U/L (5-37); Blood Urea Nitrogen 14 mg/dL (9-16); Calcium 8.0 mg/dL (8.4-10.2); Carbon Dioxide 29 mmol/L (22-29); Chloride 105 mmol/L (96-108); Creatinine Clr Calc Pharmacy 78.0; Estimated Glomerular Filt Rate > 60; Lipase 58 U/L (8-78); Magnesium 1.7 mg/dL (1.6-2.6); Potassium 3.5 mmol/L (3.3-5.1); Sodium 138 mmol/L (135-145); Total Protein 6.1 g/dL (6.5-8.0)
[2025-05-08 09:58] LABS: D Dimer High Sensitivity 166 NG/ML
[2025-05-08 09:59] LABS: Troponin-I High Sensitivity 4.3 ng/L (<3.5-35.0)
[2025-05-08 10:00] LABS: COVID-19 Test Negative (Negative); IDNOW Serial# 55D5AD1C
[2025-05-08 10:03] LABS: NT Pro B Type Natriuretic Pept 416.5 pg/mL (<300)
[2025-05-08 10:05] LABS: Appearance Urine Clear; Glucose Urine UA Negative (Negative); PH 7.5 (5.0-9.0); Specific Gravity - Urine 1.015 (1.005-1.025)
--- NOTE | 2025-05-08 10:28 | ED.CHESTPAIN ---
HPI - Chest Pain General Chief Complaint: Chest Pain Stated Complaint: WOKE UP W/L CP 3H,ASA/NITRO GIVEN PER EMS Time Seen by Provider: 05/08/25 09:04 Source: patient, EMS and old records reviewed Mode of arrival: EMS Limitations: no limitations History of Present Illness ED Provider: KUSUM HPI narrative: 69 yo male with PMH of parkinsons, stimulator, HTN, HLD, aflutter but not on thinners, chronic L leg swelling, 04/30 seen for bronchitis started on steroids/ceftin/doxy now here with c/o L sharp chest pain when he coughs and gets spasms he did take his valium this AM. He has no fevers. He has chronic LE swelling that is not new. He denies recent travel or procedures he denies hx of clots, he is not on thinners at this time. He did get nitro by EMS but reports no pain relief. His pain started at 5am while sleeping. He has no n/v, no dyspnea, no sputum. MD complaint: chest pain Pertinent past history: other Onset (ago): day(s) (5am rest) Prior episodes: Yes Onset: during rest Pain location: substernal Pain radiation: none Severity: mild Quality: aching and sharp Relieving factors: nothing Exacerbating factors: other (cough) Context: recent illness Treatment prior to arrival: aspirin and nitroglycerin Related Data Home Medications ?Medication ?Instructions ?Recorded ?Confirmed carbidopa 25 mg-levodopa 100 mg tab PO 02/06/21 tablet dextromethorphan 20 mg-quinidine 1 cap PO BID 02/06/21 10 mg capsule (Nuedexta) Held on 07/31/22. Instructions: Resume on 08/06/22. diazepam 5 mg tablet 5 mg PO TID PRN 02/06/21 hydrocortisone 2.5 % topical cream appl topical 02/06/21 omeprazole 40 mg capsule,delayed 40 mg PO DAILY 02/06/21 release tamsulosin 0.4 mg capsule 0.4 mg PO DAILY 02/06/21 Held on 07/31/22. Instructions: Resume on 08/06/22. temazepam 15 mg capsule 15 mg PO BEDTIME PRN 02/06/21 Previous Rx's ?Medication ?Instructions ?Recorded nirmatrelvir 300 mg (150 mg See Rx Instructions PO .COMPLEX 07/31/22 x2)-ritonavir 100 mg tablet,dose #30 ea pack (Paxlovid) ondansetron 4 mg disintegrating 4 mg PO Q6H PRN nausea and 07/31/22 tablet vomiting #10 tabs cefdinir 300 mg capsule 300 mg PO BID 7 days #14 caps 05/01/25 codeine 10 mg-guaifenesin 100 mg/5 5 ml PO Q6H PRN cough #118 mL 05/01/25 mL oral liquid (G Tussin AC) doxycycline monohydrate 100 mg 100 mg PO BID 7 days #14 caps 05/01/25 capsule prednisone 50 mg tablet 50 mg PO DAILY 5 days #5 tabs 05/01/25 Allergies Allergy/AdvReac Type Severity Reaction Status Date / Time insect venom Allergy unknown Verified 05/08/25 09:13 tramadol Allergy Unknown Verified 05/08/25 09:13 Review of Systems Review of Systems: Constitutional : No Fever, No Chills, No Fatigue ENT/Mouth : No sore throat, No Rhinorrhea Eyes: No Eye Pain, No Swelling, No Redness Cardiovascular : pos Chest Pain, No SOB, No Dyspnea on Exertion Respiratory : No Cough, No Sputum Gastrointestinal : No Nausea, No Vomiting, No Diarrhea, No abdominal Pain Genitourinary : No Dysuria, No Urinary Frequency, No Hematuria, Musculoskeletal : No joint pain, No Myalgias, No Joint Swelling Skin : No Skin Lesions, No rash All other systems reviewed and are negative [facility] Past Medical History Attestation statement: The following information was validated with the patient. Source: old records reviewed Medical History Chronic pain syndrome Left rib fracture Parkinson disease, symptomatic Insomnia Hiatal hernia Dysphagia Chronic constipation Abnormal iliac reflex Vitamin B12 deficiency Obstructive sleep apnea Diverticulitis Hemorrhoids, internal Benign prostatic hyperplasia Esophageal reflux Parkinson disease Depression Hypertension Hyperlipidemia Atrial flutter Social History Social History Alcohol intake: never Advance Directives: Yes Advance Directives Information Provided: No Advance Directives on File: No Physical Exam Vital Signs: Vital Signs: Last Vital Signs Temp 98.2 F 05/08/25 11:42 Pulse 60 05/08/25 11:42 Resp 16 05/08/25 11:42 BP 172/79 H 05/08/25 11:42 Pulse Ox 98 05/08/25 11:42 O2 Del Method Room Air 05/08/25 11:42 BMI result Body Mass Index 28.0 Appearance: Alert appears sleepy. Oriented X3. No acute distress. Eyes: Pupils equal, round and reactive to light. ENT: Pharynx normal. Neck: Normal inspection. Neck supple. CVS: Normal heart rate and rhythm. Pulses normal. Chest: no chest ttp Respiratory: No respiratory distress. Breath sounds normal. Abdomen: Soft and nontender. Rectal 2 non bleeding hemorrhoids, light brown stool Skin: Skin warm and dry. Normal skin color. Normal skin turgor. Extremities: No lower extremity edema. No calf ttp Neuro: Oriented X 3. No motor deficit. No sensory deficit. CN2-12 intact Medical Decision Making Medical Decision Making [facility] Narrative: 69 yo male with PMH of parkinsons, stimulator, HTN, HLD, aflutter but not on thinners, chronic L leg swelling, 04/30 seen for bronchitis here with c/o atypical chest pain he will need trop x 2, labs, CXR, ddimer and venous duplex of his LLE. He is sleepy on exam and admits to taking his PO valium. I have low susp for ACS and VTE at this time his symptoms are reported as a spasm that occurs only when he coughs. Differential Diagnosis Differential Diagnoses: The differential diagnosis associated with the presentation includes atypical chest pain, low prob VTE, atypical for ACS Admission/Observation Consideration of admission/observation: Escalation of care including admission/observation considered work up negative no blood though they reported likely bleeding from hemorrhoid labs stable CXR stable DVT study negative Lab Data [facility] Lab Attestation statement: I reviewed the patient's lab results. 05/08/25 09:30 05/08/25 09:30 Labs: Lab Results 05/08/25 05/08/25 05/08/25 Range/Units 09:30 09:54 12:24 WBC 7.7 (4.8-10.8) X10*3/uL RBC 4.03 L (4.60-5.80) X10*6/uL Hgb 12.1 L (14.0-18.0) g/dl Hct 36.1 L (42.0-52.0) % MCV 89.6 (80.0-98.0) fL MCH 30.0 (27.0-33.0) pg MCHC 33.5 (31.0-36.0) g/dl RDW 13.3 (11.0-16.0) % Plt Count 244 (160-400) X10*3/uL MPV 8.4 L (9.4-12.4) fL Immature Gran % (Auto) 0.9 H (0.0-0.4) % Neut % (Auto) 68.1 (45-73) % Lymph % (Auto) 22.0 (20-40) % [place] % (Auto) 6.9 (2-11) % Eos % (Auto) 1.7 (0-4) % Baso % (Auto) 0.4 (0-2) % Lymph # (Auto) 1.7 (1.2-4.9) X10*3/uL [place] # (Auto) 0.5 (0.1-1.2) X10*3/uL Eos # (Auto) 0.1 (0.0-0.4) X10*3/uL Baso # (Auto) 0.0 (0.0-0.2) X10*3/uL Abs Immat Gran (auto) 0.07 H (0.00-0.03) X10*3/uL Absolute Neuts (auto) 5.3 (2.0-8.3) x10*3/uL Absolute Nucleated RBC 0.000 (0.0-0.012) X10*3/uL Nucleated RBC % (auto) 0.0 (0.0-0.2) /100WBC PT 12.1 (10.9-12.4) SEC INR 1.1 (0.9-1.1) D-Dimer High Sensitivty 166 NG/ML Sodium 138 (135-145) mmol/L Potassium 3.5 (3.3-5.1) mmol/L Chloride 105 (96-108) mmol/L Carbon Dioxide 29 (22-29) mmol/L Anion Gap 8 L (12-20) BUN 14 (9-16) mg/dL Creatinine 1.00 (0.5-1.4) mg/dL Estim Creat Clear Calc 78.0 Estimated GFR > 60 Random Glucose 95 (60-115) mg/dL Calcium 8.0 L (8.4-10.2) mg/dL Magnesium 1.7 (1.6-2.6) mg/dL Total Bilirubin 0.5 (0.0-1.0) mg/dL Direct Bilirubin 0.2 (0.0-0.5) mg/dL AST 16 (5-37) U/L ALT 6 (0-40) U/L Alkaline Phosphatase 61 (39-117) U/L Troponin I High Sens 4.3 (<3.5-35.0) ng/L NT-Pro-B Natriuret Pep 416.5 H (<300) pg/mL Total Protein 6.1 L (6.5-8.0) g/dL Albumin 3.4 L (3.5-5.0) g/dL Lipase 58 (8-78) U/L Urine Color Yellow Urine Appearance Clear Urine pH 7.5 (5.0-9.0) Ur Specific [place] 1.015 (1.005-1.025) Urine Protein Negative (Neg-Trace) mg/dL Urine Glucose (UA) Negative (Negative) mg/dL Urine Ketones Negative (Negative) mg/dL Urine Blood Negative (Negative) Urine Nitrite Negative (Negative) Ur Leukocyte Esterase Negative (Negative) Stool Occult Blood NEGATIVE (NEGATIVE) COVID-19 (SLY) Negative (Negative) COVID-19 Clin Com See Note Independent Interpretation I performed an independent interpretation of an: EKG, Plain X-Ray (normal ) and Ultrasound (no DVT) Interpretation: Rate:61 Rhythm: NSR [place]: left Normal P waves. Normal MARITA. Normal QRS complex. ST T wave : artifact from stimulator but no GOLDEN qTC: 511 (last 560s) prior studies: no sig change The study has been interpreted contemporaneously by me. . Radiology Impression Discussion of test interpretation with radiology: I have reviewed the radiologist's reading. Independent Historian Clinical information obtained from an independent historian. History obtained from or confirmed by: EMS External Record Review External record reviewed: Inpatient record and Outpatient record Prescription Management I considered prescription management with: Other Discharge Plan Discharge Clinical Impression: Atypical chest pain Hemorrhoid Qualifiers: Hemorrhoid type: unspecified Qualified Code(s): K64.9 - Unspecified hemorrhoids Patient Disposition: Home, Self-Care Instructions: Chest Pain (ED) Additional Instructions: normal US no DVT negative chest xray, EKG and repeat heart tests negative for blood in stool you have a hemorrhoid use a stool softener continue your medications follow up with your doctor as needed return for any other worsening symptoms or concerns rest and stay hydrated Prescriptions: No Action Paxlovid 300 mg (150 mg x 2)-100 mg tablets,dose pack See Rx Instructions .ROUTE .COMPLEX Qty: 30 0RF Rx Instructions: take TWO 150 mg tablets of nirmatrelvir with ONE 100 mg tablet of ritonavir twice daily for 5 days ondansetron 4 mg tablet,disintegrating 4 mg PO Q6H PRN (Reason: nausea and vomiting) Qty: 10 0RF doxycycline monohydrate 100 mg capsule 100 mg PO BID 7 Days Qty: 14 0RF prednisone 50 mg tablet 50 mg PO DAILY 5 Days Qty: 5 0RF codeine-guaifenesin [G Tussin AC] 10-100 mg/5 mL liquid 5 ml PO Q6H PRN (Reason: cough) Qty: 118 0RF cefdinir 300 mg capsule 300 mg PO BID 7 Days Qty: 14 0RF Print Language: Canadian
--- OUTSIDE RECORDS SUMMARY | 2025-05-08 10:36 | XMS_ITS | Encounter Summary ---
Author Organization [facility] Address [address] [place] [address] Care Team Providers Care Caterpillar Tractor Operator Name Role Phone Ashley Ramirez MD Primary Care Provider [phone] Encounter Details Date Type Department Care Team (Late st Contact Info) Description 04/16/2025 Results Follow-Up Internal Medicine - [place] [address] [facility] [address] [place] [phone] Ashley Ramirez MD [address] [facility] [address] [place] [phone] Social History Tobacco Use Types Packs/Day Years [...] Care Team (Late st Contact Info) Description 05/25/2025 3:00 PM EST Office Visit Gastroenterology - [address] [place] [phone] Ivy Gusman PA [address] [place] [address] 06/20/2025 3:15 PM EST Office Visit Orthopedic Surgery - [place] [address] [facility] [address] [place] [phone] Omar Enrique DPParvin [address] [facility] [address] [facility] [address] [place] [phone] 07/12/2025 1:15 PM EST Office Visit Internal Medicine - [place] [address] [facility] [address] [facility] [address] [place] [phone] Ashley Ramirez MD [address] [facility] [address] [place] [phone] documented as of this encounter Visit Diagnoses Not on filedocumented in this encounter Care Teams Caterpillar Tractor Operator Relationship Specialty Start Date End Date Ashley Ramirez MD [address] [facility] [address] [place] [phone] PCP - General Internal Medicine 05/20/24 documented as of this encounter
--- OUTSIDE RECORDS SUMMARY | 2025-05-08 10:36 | XMS_ITS | Encounter Summary ---
Author Organization [facility] Address [address] [place] [address] Care Team Providers Care Internet Marketing Manager Name Role Phone Ashley Ramirez Gracie Primary Care Provider [phone] Encounter Details Date Type Department Care Team (Late st Contact Info) Description 02/23/2025 [employer] Message [facility] Financial Clearance Department [address] [place] [address] [employer], Generic Provider [address] [place] [address] Approval Social History Tobacco Use Types Packs/Day [...] Info) Description 05/15/2025 2:00 PM EST Follow-Up [facility] [address] [place] [address] Colton Renteria MD PhD [address] [place] [address] 07/11/2025 11:00 AM EST Office Visit [facility] [address] [place] [address] Hiral Diaz NP [address] [place] [address] 10/02/2025 11:00 AM EDT Office Visit [facility] [address] [place] [address] Hiral Diaz NP [address] [place] [address] 12/07/2025 2:00 PM EDT Procedure visit [facility] [address] [place] [address] Zach Reddy MD [address] [place] [address] documented as of this encounter Visit Diagnoses Not on filedocumented in this encounter Care Teams Internet Marketing Manager Relationship Specialty Start Date End Date Ashley Ramirez [address] [place] [phone] PCP - General 01/29/17 documented as of this encounter
--- OUTSIDE RECORDS SUMMARY | 2025-05-08 10:36 | XMS_ITS | Encounter Summary ---
Author Organization [facility] Address [address] [place] [address] Care Team Providers Care Trade Economist Name Role Phone Ashley Ramirez Primary Care Provider [phone] Encounter Details Date Type Department Care Team (Late st Contact Info) Description 04/06/2024 [employer] Message [facility] Financial Clearance Department [address] [place] [address] [employer], Generic Provider [address] [place] [address] Approval Social History Tobacco Use Types Packs/Day [...] Info) Description 05/15/2025 2:00 PM EST Follow-Up [facility] [address] [place] [address] Colton Renteria MD PhD [address] [place] [address] 07/11/2025 11:00 AM EST Office Visit [facility] [address] [place] [address] Hiral Diaz NP [address] [place] [address] 10/02/2025 11:00 AM EDT Office Visit [facility] [address] [place] [address] Hiral Diaz NP [address] [place] [address] 12/07/2025 2:00 PM EDT Procedure visit [facility] [address] [place] [address] Zach Reddy MD [address] [place] [address] documented as of this encounter Visit Diagnoses Not on filedocumented in this encounter Care Teams Trade Economist Relationship Specialty Start Date End Date Ashley Ramirez [address] [place] [place] [phone] PCP - General 01/29/17 documented as of this encounter
--- OUTSIDE RECORDS SUMMARY | 2025-05-08 10:36 | XMS_ITS | Clinical Summary ---
Author Organization [facility] Address [address] [facility] [address] [place] [address] Care Team Providers Care Planning Coordinator Name Role Phone [place] No Pcp, [facility] Primary Care Provider [...] MEDICARE PART A AND B Care Teams Planning Coordinator Relationship Specialty Start Date End Date No Pcp, [facility] [place] PCP - General Internal Medicine 10/08/23
--- OUTSIDE RECORDS SUMMARY | 2025-05-08 10:36 | XMS_ITS | Clinical Summary ---
Author Organization [facility] Address [address] [place] [address] Care Team Providers Care Accredited Farm Manager Name Role Phone Ashley Ramirez Primary Care Provider [phone] Allergies Active Allergy Reactions Criticality Noted Date Comments Ketorolac Unknown 10/19/2017 Pt.s spouse states pt. Is not allergic to Toradol. Medications tamsulosin (FLOMAX) 0.4 mg capsule Take 0.8 mg by mouth. 1/2 hour after last meal of the day 3 03/19/20 17 Active peg 3350-sod chlor-potass cit 17 gram/ scoop kit Take 1 scoop by mouth daily. 1 kit 5 02/27/20 18 Active omeprazole (PriLOSEC) 40 mg capsule Take 40 mg by mouth once a day. 0 08/19/19 19 Active senna (SENOKOT) 8.6 mg tablet Take 2 tablets (17.2 mg total) by mouth daily as needed for constipation. 11/11/19 21 Active ketoconazole (NIZORAL) 2% cream Apply topically to the affected area once a day. Face Active cyclobenzaprine (FLEXERIL) 5 mg tablet Take 5 mg by mouth nightly as needed for muscle spasms. Active onabotulinumtoxinA (Botox) 200 unit recon soln 200 Units. injected Into both eyelids Every 6 weeks as directed Active linaCLOtide (LINZESS) 290 mcg Take 290 mcg by mouth once a day. Active ibuprofen (MOTRIN) 600 mg tablet Take 1 tablet (600 mg total) by mouth 2 times a day as needed for pain. Hold for 1 week after surgery 04/07/20 Active atorvastatin (LIPITOR) 10 mg tablet Take 1 tablet by mouth once a day. 12/28/19 Active dextromethorphan-q uinidine (NUEDEXTA) 20-10 mg per capsuleIndications :Parkinson's disease without dyskinesia or fluctuating manifestations Take 1 capsule by mouth every 12 hours. 180 capsule 3 05/16/20 24 025 Active oxyCODONE IR (ROXICODONE) 5 mg tablet Take 5 mg by mouth 3 times daily. 07/10/20 Active temazepam (RESTORIL) 15 mg capsule Take 1 capsule (15 mg total) by mouth at bed time. Discontinue other prescriptions of temazepam 90 capsule 1 02/08/20 25 026 Active carbidopa-levodopa ER/CR (SINEMET ER/CR) 25-100 mg tablet Take 1 tablet by mouth 2 times a day. 180 tablet 1 04/05/20 Active diazePAM (VALIUM) 5 mg tabletIndications: Parkinson's disease without dyskinesia or fluctuating manifestations Take 1 tablet (5 mg total) by mouth every 8 hours as needed for muscle spasms. 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 Falls frequently 05/23/2018 Severe episode of recurrent major depressive disorder, without psychotic features 11/30/2017 PD (Parkinson's disease) 10/08/2017 Overview (10/08/2017): Added automatically from request for surgery [id number] Muscular rigidity and spasm, progressive 017 Lumbosacral [...] Type Department Care Team Description 04/05/2025 Refill [facility] [address] [place] [address] Zach Reddy MD Parkinson's disease without dyskinesia or fluctuating manifestations (HCC) 04/04/2025 2:00 PM EDT Office Visit [facility] [address] [place] [address] Zach Reddy MD Primary parkinsonism (HCC) (Primary Dx); Parkinson's disease without dyskinesia or fluctuating manifestations (HCC); Dysarthria; Dysphagia, oropharyngeal phase 02/23/2025 myChart Message [facility] Financial Clearance Department [address] [place] [address] Mychart, Generic Provider Approval 02/23/2025 Telephone [facility] [address] [place] [address] Katie Villanueva MA 02/22/2025 myChart Message [facility] [address] [place] [address] Anjelica Fraga, SUPERVISOR CABINETMAKER Prescription 02/20/2025 Refill [facility] [address] [place] [address] Zach Reddy MD 02/17/2025 Refill [facility] [address] [place] [address] Destinee Fontanez MD Parkinson's disease without dyskinesia or fluctuating manifestations (HCC) (Primary Dx) 02/17/2025 Refill [facility] [address] [place] [address] Zach Reddy MD 02/16/2025 Telephone [facility] [address] [place] [address] Katie Villanueva MA Alternative - PAC Retail Pharm Denial 02/14/2025 Refill [facility] [address] [place] [address] Zach Reddy MD 02/06/2025 Refill [facility] [address] [place] [address] Destinee Fontanez MD from Last 3 Months [...] Info) Description 05/15/2025 2:00 PM EST Follow-Up [facility] [address] [place] [address] Colton Renteria MD PhD [address] [place] [address] 07/11/2025 11:00 AM EST Office Visit [facility] [address] [place] [address] Hiral Diaz NP [address] [place] [address] 10/02/2025 11:00 AM EDT Office Visit [facility] [address] [place] [address] Hiral Diaz NP [address] [place] [address] 12/07/2025 2:00 PM EDT Procedure visit [facility] [address] [place] [phone] Zach Reddy MD [address] [place] [address] Health Maintenance Due Date Last Done Comments [...] this topic Medical Devices Implanted Type Area Customer Response Representative Device Identifier Shelf Expiration Date Model / Serial / Lot Kit Extension For Deep Brain Stimulation - [id number] - [id number] Implanted:Qty: 1 on 11/09/2020 by Colton Renteria MD PhD at [facility] Implant Medtronic 06/02/2024 [id number] / [id number] / Generator Neurostimulator Deep Brain [id number] Activa Pc - [id number] - [id number] Implanted:Qty: 1 on 11/09/2020 by Colton Renteria MD PhD at [facility] Implant Medtronic 10/07/2021 [id number] / [id number] / Battery Neurostimulator Dbs Pc Percept - [id number] - [id number] Implanted:Qty: 1 on 04/07/2023 by Colton Renteria MD PhD at [facility] Implant Right: Chest Medtronic 01/07/2025 [id number] / [id number] / Activa Sc Implanted:Qty: 1 on 10/19/2017 by Colton Renteria MD PhD at [facility] Right: Chest Medtronic 03/09/2019 97104 / [id number] / Description:neurostim for DB S Explanted Type Area Customer Response Representative Device Identifier Shelf Expiration Date Model / Serial / Lot Activa Sc Implanted:Qty: 1 on 10/19/2017 by Colton Renteria MD PhD at [facility] Explanted:Qty: 1 on 11/09/2020 at [facility] Left: Chest Medtronic 12/24/2018 [id number] / [id number] / Description:neurostim [place] [id number] [facility] MEDICARE [facility] Advance Directives Documents on File Type Date Recorded Patient Paper Cup Machine Tender Expl anation Health Care Proxy 03/26/2023 [...] 8:38 AM 10/19/2017 3:49 PM Care Teams Accredited Farm Manager Relationship Specialty Start Date End Date Ashley Ramirez [address] [place] [address] PCP - General 01/29/17
--- OUTSIDE RECORDS SUMMARY | 2025-05-08 10:36 | XMS_ITS | Clinical Summary ---
Author Organization [facility] Address [address] [place] [address] Phone Care Team Providers Care Pathology Secretary Name Role Phone Ashley Ramirez MD Primary Care Provider [phone] Allergies Active Allergy Reactions Criticality Noted Date [...] (three) times a day. 09/03/19 24 Active Miebo, PF, 100 % drops [...] 15 mg 86 tablet 04/13/20 25 Active omeprazole (PriLOSEC) [address] capsule TAKE 1 CAPSULE(40 MG) BY MOUTH 1 TIME EACH DAY 90 capsule 3 05/02/20 25 Active omeprazole (PriLOSEC) [address] capsule Take 1 capsule (40 mg total) by mouth 1 (one) time each day. 90 capsule 3 05/25/20 24 025 Discontinued oxyCODONE (ROXICODONE) 5 mg immediate release tablet Take 1 tablet (5 mg total) by mouth 3 (three) times a day. Max Daily Amount: 15 mg 86 tablet 02/18/20 25 025 Discontinued(R eorder) Active Problems Problem Noted Date Diagnosed Date Orthostatic hypotension 10/07/2024 Assessment & Plan (01/25/2025 3:33 PM EDT): Patient has history of profound orthostatic hypotension. At his last office visit with Dr. Sfoia Contreras was added. Patient started this however [...] Encounters Date Type Department Care Team Description 04/20/2025 3:15 PM EDT Office Visit Orthopedic Surgery [facility] [address] [facility] [address] [place] [address] Omar Enrique, DPM Dermatophytosis of nail (Primary Dx); Primary osteoarthritis of both feet; Ingrowing nail; Tinea pedis of both feet; Bilateral femoral artery stenosis ([facility] V24); Pain in toe of left foot; Pain in toe of right foot; Corns and callosities; Metatarsalgia of both feet 04/16/2025 Results Follow-Up Internal Medicine [facility] [address] [facility] [address] [place] [address] Ashley Ramirez MD 04/14/2025 3:00 PM EDT Office Visit Internal Medicine [facility] [address] [facility] [address] [place] [address] Ashley Ramirez MD Vitamin B12 deficiency (Primary Dx); Vitamin D deficiency; Mixed hyperlipidemia; Primary hypertension; Parkinson's disease, unspecified whether dyskinesia present, unspecified whether manifestations fluctuate (CMS/HCC V24, CMS/HCC V28); Atrial flutter, unspecified type (CMS/HCC V24, CMS/HCC V28); Hyperglycemia; TIA (transient ischemic attack) 04/10/2025 Telephone Internal Medicine - [place] [address] [facility] [address] [place] [address] Ashley Ramirez MD 02/07/2025 2:00 PM EDT Office Visit Internal Medicine [facility] [address] [place] [address] Ashley Ramirez MD Parkinson's disease, unspecified whether dyskinesia present, unspecified whether manifestations fluctuate ([facility] V24, [facility] V28) (Primary Dx); Primary hypertension; Atrial flutter, unspecified type ([facility] V24, [facility] V28) from Last 3 Months Immunizations Immunization Administration Dates Next Due Tdap Tetanus diptheria acell ular pertussis (Boostrix; Adacel) 7yo and older 01/29/2019,09/27/2013 Surgical History Surgery Date Site/Laterality Comments BRAIN SURGERY BRAIN STIMULATOR, battery packs switched in upper chest a few times, [facility]. Neurologist [facility] BACK SURGERY 06/13/2024 L4-5 decompression, Dr. Arrington OTHER SURGICAL HISTORY 07/13/2022 - 07/12/2023 fell, larger hematoma right lateral hip and thigh, drain placed Medical History Medical History Date Comments Abnormal iliac reflex 06/14/2015 Atrial flutter ([facility] V24, [facility] V28) 2017 Benign prostatic hyperplasia 05/12/2017 Chronic constipation 02/23/2014 Depression 12/18/2017 Dysphagia 01/27/2014 Edema 05/05/2014 Esophageal reflux 07/31/2017 Hemorrhoids, internal 01/27/2017 Hiatal hernia 05/12/2013 History of diverticulitis of colon 01/23/2017 Hyperlipidemia 03/23/2018 Hypertension 03/23/2018 Insomnia 04/19/2013 Obstructive sleep apnea 10/15/2016 Parkinson's disease ([facility] V24, [facility] V28) 0 12/18/2017 Vitamin B12 deficiency 05/06/2016 Vitamin D deficiency 04/12/2014 At high risk for injury related to fall Progressive supranuclear pal sy ([facility] V24, [facility] V28) botox injections q4 wks [...] PM EST Office Visit Gastroenterology - [address] [facility] [address] [facility] [address] [place] [id number] Ivy Gusman PA [address] [facility] [address] [place] [address] 06/20/2025 3:15 PM EST Office Visit Orthopedic Surgery - [place] [address] [facility] [address] [place] [phone] Omar Enrique DPM [address] [facility] [address] [place] [phone] 07/12/2025 1:15 PM EST Office Visit Internal Medicine - [place] [address] [facility] [address] [place] [phone] Ashley Ramirez MD 175 [facility] [address] [place] [address] Health Maintenance Due Date Last [...] this topic Medical Devices Implanted Type Area Woodworking Belt Sander Device Identifier Shelf Expiration Date Model / [...] Complete blood count (04/14/2025 3:22 PM EDT) [facility] WBC 5.8 4.8 - 10.8 K/mcL LAB HEMETOLOGY METHOD 04/14/2025 6:10 PM EDT [facility] RBC 4.60 4.50 - 5.50 M/mcL LAB HEMETOLOGY METHOD 04/14/2025 6:10 PM EDT [facility] Hemoglobin 13.4(L) 13.5 - 17.5 g/dL LAB HEMETOLOGY METHOD [facility] Hematocrit 40.6(L) 42.0 - 54.0 % LAB HEMETOLOGY METHOD 04/14/2025 6:10 PM [facility] MCV 87.7 79.0 - 98.0 FL LAB HEMETOLOGY METHOD 04/14/2025 6:10 PM [facility] MCH 28.9 27.0 - 32.0 pcg LAB HEMETOLOGY METHOD 04/14/2025 6:10 PM [facility] MCHC 33.0 32.0 - 37.0 g/dL LAB HEMETOLOGY METHOD 04/14/2025 6:10 PM [facility] RDW 12.9 11.0 - 15.0 % LAB HEMETOLOGY METHOD 04/14/2025 6:10 PM [facility] Platelets 249 130 - 400 K/mcL LAB HEMETOLOGY METHOD 04/14/2025 6:10 PM EDT [facility] MPV 9.3 7.0 - 11.0 FL LAB HEMETOLOGY METHOD 04/14/2025 6:10 PM EDT [facility] NRBC 0.0 <1.0 % LAB HEMETOLOGY METHOD 04/14/2025 6:10 PM EDT [facility] NRBC Absolute 0.00 <0.10 K/mcL LAB HEMETOLOGY METHOD 04/14/2025 6:10 PM EDT [facility] Blood Venous blood specimen / Unknown Venipuncture / Unknown 04/14/2025 3:22 PM EDT 04/14/2025 3:22 PM EDT us Ashley Ramirez MD LAB BLOOD ORDERABLES Final Res ult [facility] [address] [place] [address], [place] [phone] * Thyroid stimulating hormone (04/14/2025 3:22 PM EDT) [facility] TSH 3.18 0.40 - 4.00 mcIU/mL LAB CHEMISTRY METHOD 04/14/2025 6:48 PM EDT [facility] Blood Venous blood specimen / Unknown Venipuncture / Unknown 04/14/2025 3:22 PM EDT 04/14/2025 3:22 PM EDT us Ashley Ramirez MD LAB BLOOD ORDERABLES Final Res ult [facility] [address] [place] [address], [place] [phone] * Hemoglobin A1c (04/14/2025 3:22 PM EDT) [facility] Hemoglobin A1C 5.2 <6.5 % LAB CHEMISTRY METHOD 04/14/2025 8:30 PM EDT [facility] Mean Bld Glu Estim. 103 mg/dL LAB CHEMISTRY METHOD 04/14/2025 8:30 PM EDT [facility] Blood Venous blood specimen / Unknown Venipuncture / Unknown 04/14/2025 3:22 PM EDT 04/14/2025 3:22 PM EDT Ashley Ramirez MD LAB BLOOD ORDERABLES Final Res ult Performing Organization Address City/[facility]/ZIP Co de Phone Number [facility] [address] [place] [address], [place] [phone] * Vitamin B12 (04/14/2025 3:22 PM EDT) Vitamin B-12 372 250 - 900 pcg/mL LAB CHEMISTRY METHOD 04/14/2025 6:44 PM EDT [facility] Blood Venous blood specimen / Unknown Venipuncture / Unknown 04/14/2025 3:22 PM EDT 04/14/2025 3:22 PM EDT Ashley Ramirez MD LAB BLOOD ORDERABLES Final Res ult Performing Organization Address City/[facility]/ZIP Co de Phone Number [facility] [address] [place] [address], [place] [phone] * Comprehensive metabolic panel (04/14/2025 3:22 PM EDT) Sodium 135 133 - 145 mmol/L LAB CHEMISTRY METHOD 04/14/2025 6:44 PM EDT [facility] Potassium 4.6 3.5 - 5.5 mmol/L LAB CHEMISTRY METHOD 04/14/2025 6:44 PM EDT [facility] Chloride 104 96 - 110 mmol/L LAB CHEMISTRY METHOD 04/14/2025 6:44 PM EDT [facility] CO2 26 21 - 32 mmol/L LAB CHEMISTRY METHOD 04/14/2025 6:44 PM [facility] Anion Gap 5 3 - 11 LAB CHEMISTRY METHOD 04/14/2025 6:44 PM [facility] Glucose 85 70 - 100 mg/dL LAB CHEMISTRY METHOD 04/14/2025 6:44 PM [facility] BUN 14 5 - 25 mg/dL LAB CHEMISTRY METHOD 04/14/2025 6:44 PM [facility] Creatinine 1.26 0.70 - 1.30 mg/dL LAB CHEMISTRY METHOD 04/14/2025 6:44 PM [facility] eGFR 62 >=60 mL/min/1. 73m2 LAB CHEMISTRY METHOD 04/14/2025 6:44 PM [facility] Comment:Calculation based on the Chronic Kidney Disease Epidemiology Collaboration (CKD-EPI) equation refit without adjustment for race. BUN/Creatinine Ratio 11.1 LAB CHEMISTRY METHOD 04/14/2025 6:44 PM [facility] Calcium 9.0 8.5 - 10.5 mg/dL LAB CHEMISTRY METHOD 04/14/2025 6:44 PM [facility] AST (SGOT) 17 10 - 42 unit/L LAB CHEMISTRY METHOD 04/14/2025 6:44 PM [facility] ALT (SGPT) 16 10 - 60 unit/L LAB CHEMISTRY METHOD 04/14/2025 6:44 PM [facility] Alkaline Phosphatase 95 42 - 121 unit/L LAB CHEMISTRY METHOD 04/14/2025 6:44 PM [facility] Total Protein 7.2 6.0 - 8.0 g/dL LAB CHEMISTRY METHOD 04/14/2025 6:44 PM [facility] Albumin 3.6 3.2 - 5.0 g/dL LAB CHEMISTRY METHOD 04/14/2025 6:44 PM [facility] Total Bilirubin 0.5 0.0 - 1.4 mg/dL LAB CHEMISTRY METHOD 04/14/2025 6:44 PM EDT [facility] Blood Venous blood specimen / Unknown Venipuncture / Unknown 04/14/2025 3:22 PM EDT 04/14/2025 3:22 PM EDT Ashley Ramirez MD LAB BLOOD ORDERABLES Final Res ult [facility] [address] [place] [address], [place] [phone] * Depression Screening (04/14/2024) Pathologist [facility] Depression Screening abstracted Historical Provider HEALTH MAINTENANCE Final Result * Colonoscopy (12/23/2023) Pathologist [facility] Colonoscopy no interpretation , abstracted Anatomical Region Laterality Modality Other Historical Provider HEALTH MAINTENANCE Final Result * Lipid panel (09/10/2023) [facility] LDL/HDL Ratio 3 0 - 4 [...] currently active code status orders. Care Teams Pathology Secretary Relationship Specialty Start Date End Date Ashley Ramirez MD [address] [place] [phone] PCP - General Internal Medicine 05/20/24
[2025-05-08 11:42] VITALS: BP 172/79; PULSE 60; RESP 16; TEMP 36.8; O2SAT 98
[2025-05-08 12:34] LABS: OBS Int Ctl Valid YES; OBS1 NEGATIVE (NEGATIVE)
--- NOTE | 2025-05-08 12:43 | PC.NURSE ---
Rectal exam performed by Dr. Busby due to patient stating that he has an episode of bloody stool yesterday. Negative occult blood stool result.
[2025-05-08 12:52] LABS: Troponin-I High Sensitivity 4.2 ng/L (<3.5-35.0)
[2025-05-08] MEDS: oxyCODONE HCl Immed Release 5 MG TABLET PO (12:53)
[2025-05-08 14:16] VITALS: BP 158/72; PULSE 61; RESP 16; TEMP 36.8; O2SAT 97
== END 2025-05-08 14:16 | disposition home or self-care (01) ==
PROVIDERS: Emergency Provider Emergency Medicine; PCP Internal Medicine
DX: R07.89 Other chest pain (principal); K64.9 Unspecified hemorrhoids; I10 Essential (primary) hypertension; M79.89 Other specified soft tissue disorders
CPT/HCPCS: 36415; 71045; 80048; 80076; 81003; 82272; 83690; 83735; 83880; 84484; 85025; 85379; 85610; 87635; 93005; 93971; 99284

== ENCOUNTER → 2025-05-08 09:04 | Outpatient (BNV) | payer MEDICARE, MEDICAID, SELFPAY | PROVIDERS: Emergency Provider Emergency Medicine; PCP Internal Medicine; Visit Provider Internal Medicine | DX: R07.9 Chest pain, unspecified (principal) | CPT/HCPCS: 93010 ==

== ENCOUNTER → 2025-05-08 09:04 | Outpatient (BNV) | payer MEDICARE, MEDICAID, SELFPAY | PROVIDERS: Emergency Provider Emergency Medicine; PCP Internal Medicine; Visit Provider Radiology Diagnostic Ultrasound | DX: M79.89 Other specified soft tissue disorders (principal); R60.0 Localized edema; R07.9 Chest pain, unspecified | CPT/HCPCS: 71045; 93971 ==